=== PATIENT | female | born 1955 | race Caucasian/White ===

== ENCOUNTER → 2016-07-26 | Outpatient (CLI) | payer BC ==
[~2016-07-26] MED LIST: CARI350T28 PO; CYM30 PO; DEXILANT PO; ESOM20CA PO; FURO20TA PO; GLUCTAB7 PO; HYOS1TAB PO; LIVALO PO; METO1TAB69 PO; NRN400 PO; TRAM37.52 PO; TURM1CAP4 PO; ZNTT/150 PO
[2016-07-27 09:52] LABS: C-REACTIVE PROT HIGHSEN 3.2 MG/L
== END | disposition home or self-care (01) ==
LOC: C.LAB1850 08:21
PROVIDERS: ATTEND Physical Medicine & Rehabilitation
DX: M46.1 Sacroiliitis, not elsewhere classified (principal)

== ENCOUNTER → 2016-08-03 | Day surgery (SDC) | payer BC ==
[2016-07-20 13:57] VITALS: Ht 166.4 cm; Wt 90.9 kg
[~2016-08-03] VITALS: Ht 166.4 cm; Wt 90.9 kg
[~2016-08-03] MED LIST changes: +BUPIVACAINE 0.25% 2.5MG/ML PF 10 ML VIAL INFIL ONE; +IOPAMIDOL INJ 61% 15 ML VIAL ONE; +LIDOCAINE HCL 1% MPF 5 ML VIAL ONE
--- NOTE | 2016-08-03 15:06 | History & Physical Bridge - [place] ---
H&P Re-Evaluation Bridge Note: I have examined the patient, reviewed the History & Physical and in the interval since the performance of the History & Physical I have noted the following changes of clinical significance: No changes noted
[2016-08-03 15:28] VITALS: TEMP 36.5
--- NOTE | 2016-08-03 15:33 | Discharge Instructions ---
Discharge Instructions Visit Reason for Visit: Lumbar Radiculopathy Discharge Discharge Diagnosis / Problem: low back pain Discharge Goals Goal(s): Decrease discomfort, Improve function Activity Recommendations Activity Limitations: resume your previous activity Anesthesia . Post Anesthesia Instructions: If you have had General Anesthesia or IV Sedation: * Do not drive today. * Resume driving when surgeon permits. * Do not make important decisions or sign legal documents today. * Call surgeon for: 1. Temperature elevations greater than 101 degrees F. 2. Uncontrollable pain. 3. Excessive bleeding. 4. Persistent nausea and vomiting. 5. Medication intolerance (nausea, vomiting or rash). * For nausea and vomiting use only clear liquids such as: tea, soda, bouillon until nausea subsides, then gradually increase diet as tolerated. * If you have any concerns or questions, call your surgeon's office. If physician is unavailable and it is an emergency, call 911 or go to the nearest emergency room. . Diet Recommendations Recommended Home Diet: resume previous diet Procedures Procedures Performed: Bilateral Sacroiliac Joint Injection Pending Studies Studies pending at discharge: no Medical Emergencies . Who to Call and When: Medical Emergencies: If at any time you feel your situation is an emergency, please call 911 immediately. . Non-Emergent Contact Non-Emergency issues call your: Specialist . . "Provider Documentation" section prepared by Jhonny Lozano.
[2016-08-03 15:42] VITALS: BP 153/84; PULSE 68; O2SAT 100
--- NOTE | 2016-08-03 16:52 | OPERATIVE REPORT ---
DATE OF OPERATION: 08/03/2016 PREOPERATIVE DIAGNOSIS: Bilateral sacroiliitis. POSTOPERATIVE DIAGNOSIS: Same. PROCEDURE: Bilateral sacroiliac joint injections under fluoroscopic guidance. INDICATIONS: The patient is a 60-year-old white female presented to the office with complaints of low back pain. Her examination and history were consistent with sacroiliac pain. There was some concern about underlying inflammatory arthropathy and she has been worked up for that. She presents today for an injection to provide her with relief of sacroiliac pain. PHYSICAL EXAMINATION: Pleasant female seated comfortably. She has point tenderness to palpation of her bilateral sacroiliac joints, worse with extension, relieved with some flexion. Positive Navid maneuver bilaterally, positive sacral distraction and compression maneuvers. CONSENT: Verbal and written consent was obtained from the patient. Risks and benefits were reviewed. Risks include but are not limited to abscess and allergic reaction. The patient wishes to proceed. DESCRIPTION OF PROCEDURE: The patient will be taken back to the special procedures room of the [facility] where she was maintained in a prone position. Backside was cleansed with Betadine x3 and a dry sterile dressing was applied. Fluoroscope was used to identify the left sacroiliac joint and the overlying skin was anesthetized with 2.5 mL of lidocaine 1% with a 25 gauge 1.5-inch needle. A 25 gauge 3.5 inch spinal needle was then directed into the joint. She then underwent injection of less than 0.25 mL of Isovue 300 and which demonstrated to be intraarticular. She then underwent injection after negative aspiration, 1.5 mL of bupivacaine 0.25% and 40 mg of Depo-Medrol. The right SI joint then was fluoroscopically identified. The overlying skin was anesthetized with 2.5 mL of lidocaine 1% with a 25 gauge 1.5-inch needle. A 25 gauge 3.5 inch spinal needle was then directed into the joint. Isovue 300 contrast a 0.25 of a mL was injected in which demonstrated to be intraarticularly placed into the joint. She then underwent injection after negative aspiration of 40 mg of Depo-Medrol and 1.5 mL of bupivacaine 0.25%. Injection was well tolerated. DISPOSITION: 1. The patient is taken out into the discharge recovery area where she will be discharged home once discharge criteria have been met. 2. Follow up in the [facility] Sports Medicine office in 2-4 weeks. I attest to the content of the Intraoperative Record and any orders documented therein. Any exceptio ns are noted below.
== END | disposition home or self-care (01) ==
LOC: X.SURG 14:09
PROVIDERS: ATTEND Physical Medicine & Rehabilitation
DX: M46.1 Sacroiliitis, not elsewhere classified (principal); M54.5 Low back pain

== ENCOUNTER → 2016-10-05 | Outpatient (CLI) | payer BC ==
[~2016-10-05] MED LIST changes: -BUPIVACAINE 0.25% 2.5MG/ML PF 10 ML VIAL INFIL ONE; -IOPAMIDOL INJ 61% 15 ML VIAL ONE; -LIDOCAINE HCL 1% MPF 5 ML VIAL ONE; +METO100T44 PO; -METO1TAB69 PO; +TOPI50TA16 PO
--- NOTE | 2016-10-05 17:08 | MAMMOGRAPHY REPORT ---
BILATERAL DIGITAL SCREENING MAMMOGRAM TOMOSYNTHESIS WITH CAD: 10/05/2016 CLINICAL HISTORY: Routine screening. Patient has no complaints. TECHNIQUE: Breast tomosynthesis in addition to standard 2D mammography was performed. Current study was also evaluated with a Computer Aided Detection (CAD) system. COMPARISON: Comparison is made to exams dated: 09/17/2015 mammogram, 03/26/2014 mammogram, 03/27/2013 mammogram, 03/20/2013 mammogram, 03/19/2012 mammogram, and 03/16/2011 mammogram - [facility]. BREAST COMPOSITION: There are scattered areas of fibroglandular density in both breasts. FINDINGS: There is stable nodularity in the medial left breast. Stable benign-appearing calcificati ons in the breasts. No new suspicious mass, architectural distortion or cluster of microcalcificati ons is seen. IMPRESSION: ACR BI-RADS CATEGORY 1: NEGATIVE There is no mammographic evidence of malignancy. A 1 year screening mammogram is recommended. The p atient will receive written notification of the results. Approximately 10% of breast cancers are not detected with mammography. A negative mammographic repor t should not delay biopsy if a clinically suggestive mass is present. Alycia Wells M.D. ay/:10/05/2016 16:25:46 [employer] Manager: Deena Garner, [facility] letter sent: Normal 1/2 BI-RADS Code: ACR BI-RADS Category 1: Negative
== END | disposition home or self-care (01) ==
LOC: C.MAMM 08:06
PROVIDERS: ATTEND Obstetrics & Gynecology
DX: Z12.31 Encounter for screening mammogram for malignant neoplasm of breast (principal)

== ENCOUNTER → 2016-11-08 | Outpatient (CLI) | payer BC ==
--- NOTE | 2016-11-08 08:17 | DIAGNOSTIC IMAGING REPORT ---
RIGHT WRIST 4 VIEWS HISTORY: RIGHT WRIST PAIN Right COMPARISON: None. FINDINGS: There is no fracture or dislocation. Mild soft tissue swelling. No radiopaque foreign bodies. IMPRESSION: No fractures. Electronically signed by: Bobby Morales M.D. 11/08/2016 8:16 AM Dictated Date/Time: 11/08/2016 8:13 AM
== END ==
LOC: C.RAD 07:51
PROVIDERS: ATTEND Family Medicine
DX: M25.531 Pain in right wrist (principal)

== ENCOUNTER → 2016-12-01 | Day surgery (SDC) | payer BC ==
[2016-11-11 11:26] VITALS: Ht 166.4 cm; Wt 83.2 kg
[~2016-12-01] VITALS: Ht 166.4 cm; Wt 83.2 kg
[~2016-12-01] MED LIST changes: -ESOM20CA PO; +IOPAMIDOL INJ 61% 15 ML VIAL ONE; +LIDOCAINE HCL 1% MPF 5 ML VIAL ONE; +SODIUM CHLORIDE 0.9% INJ 10 ML VIAL ONE; -ZNTT/150 PO
[2016-12-01 15:06] VITALS: TEMP 36.6
--- NOTE | 2016-12-01 15:10 | Discharge Instructions ---
Discharge Instructions Date of Service Dec 01, 2016. Visit Reason for Visit: Right Lumbar Radiculopathy Discharge Discharge Diagnosis / Problem: right leg pain Discharge Goals Goal(s): Decrease discomfort, Improve function Activity Recommendations Activity Limitations: resume your previous activity Anesthesia . Post Anesthesia Instructions: If you have had General Anesthesia or IV Sedation: * Do not drive today. * Resume driving when surgeon permits. * Do not make important decisions or sign legal documents today. * Call surgeon for: 1. Temperature elevations greater than 101 degrees F. 2. Uncontrollable pain. 3. Excessive bleeding. 4. Persistent nausea and vomiting. 5. Medication intolerance (nausea, vomiting or rash). * For nausea and vomiting use only clear liquids such as: tea, soda, bouillon until nausea subsides, then gradually increase diet as tolerated. * If you have any concerns or questions, call your surgeon's office. If physician is unavailable and it is an emergency, call 911 or go to the nearest emergency room. . Diet Recommendations Recommended Home Diet: resume previous diet Procedures Procedures Performed: LUMBAR EPIDURAL STEROID INJECTION Pending Studies Studies pending at discharge: no Medical Emergencies . Who to Call and When: Medical Emergencies: If at any time you feel your situation is an emergency, please call 911 immediately. . Non-Emergent Contact Non-Emergency issues call your: Specialist . . "Provider Documentation" section prepared by Jhonny Lozano. .
[2016-12-01 15:19] VITALS: BP 131/75; PULSE 63; O2SAT 99
--- NOTE | 2016-12-01 19:30 | OPERATIVE REPORT ---
DATE OF OPERATION: 12/01/2016 PREOPERATIVE DIAGNOSIS: History of an L4-L5 discectomy with residual right L5 radiculopathy. POSTOPERATIVE DIAGNOSIS: Same. PROCEDURE: Right paramedian L5-S1 intralaminar epidural steroid injection under fluoroscopic guidance. INDICATIONS: The patient is a 61-year-old white female who receives epidural injections every few months with good relief of radicular pain. She reports that her radicular pain has recently been escalating, last injection was greater than 5 months ago. She presents today for an epidural injection to provide her with relief of right lower extremity radiculopathy. PHYSICAL EXAMINATION: GENERAL: Pleasant female seated comfortably in no apparent distress. MUSCULOSKELETAL: Lumbar paraspinal muscles were palpated, some soreness was noted on the right side. She has no focal weakness or sensory loss. CONSENT: Verbal and written consent was obtained from the patient. Risks and benefits were reviewed. Risks include but are not limited to epidural abscess, epidural hematoma, allergic reaction, dural puncture. The patient wishes to proceed. PROCEDURE: The patient was taken back to the special procedures room of the [facility]. She was maintained in a prone position. Backside was cleansed with Betadine x3 and a dry sterile dressing was applied. Fluoroscope was used to identify the L5-S1 intralaminar space and overlying skin was anesthetized with 4 mL of lidocaine 1% with a 25 gauge 1.5-inch needle. A 22-gauge 3-1/2 inch Tuohy needle was then directed down towards the intralaminar space. It was advanced under lateral fluoroscopic guidance and loss of resistance was noted at a depth of 7.5 cm. Isovue-300 contrast 1 mL was injected in which demonstrated epidural uptake pattern. This was confirmed under AP and lateral views. She then underwent injection after negative aspiration of 40 mg of Depo-Medrol and 4 mL of preservative free sodium chloride. Injection was well tolerated. DISPOSITION: 1. The patient is taken out into the discharge recovery area where she will be discharged home once discharge criteria have been met. 2. Follow up in the [facility] Sports Medicine office in 2-4 weeks. I attest to the content of the Intraoperative Record and any orders documented therein. Any exception s are noted below.
== END | disposition home or self-care (01) ==
LOC: X.SURG 14:06
PROVIDERS: ATTEND Physical Medicine & Rehabilitation
DX: M54.16 Radiculopathy, lumbar region (principal); H02.431 Paralytic ptosis of right eyelid; E03.9 Hypothyroidism, unspecified; E66.9 Obesity, unspecified; J45.909 Unspecified asthma, uncomplicated; E78.5 Hyperlipidemia, unspecified; F32.9 Major depressive disorder, single episode, unspecified; M81.0 Age-related osteoporosis without current pathological fracture; K21.9 Gastro-esophageal reflux disease without esophagitis; I10 Essential (primary) hypertension; E55.9 Vitamin D deficiency, unspecified; Z82.49 Family history of ischemic heart disease and other diseases of the circulatory system; Z81.1 Family history of alcohol abuse and dependence; Z80.3 Family history of malignant neoplasm of breast; Z83.49 Family history of other endocrine, nutritional and metabolic diseases; Z79.899 Other long term (current) drug therapy; Z87.891 Personal history of nicotine dependence

== ENCOUNTER → 2017-03-08 | Outpatient (CLI) | payer BC ==
[~2017-03-08] MED LIST changes: +GADAVIST IV PRN; -IOPAMIDOL INJ 61% 15 ML VIAL ONE; -LIDOCAINE HCL 1% MPF 5 ML VIAL ONE; -METO100T44 PO; +METO1TAB69 PO; -SODIUM CHLORIDE 0.9% INJ 10 ML VIAL ONE; -TOPI50TA16 PO
--- NOTE | 2017-03-08 07:37 | DIAGNOSTIC IMAGING REPORT ---
MRI OF THE BRAIN WITHOUT AND WITH IV CONTRAST CLINICAL HISTORY: R51 [id number] H/o Lyme [id number] COMPARISON STUDY: 04/03/2015 TECHNIQUE: MRI of the brain was performed from the vertex to the skull base utilizing various T1 and T2 weighted sequences. Following the IV administration of 7 mL of Gadavist contrast, additional enhanced images were obtained. FINDINGS: Sagittal T1, axial diffusion, proton density and T2 weighted axial, coronal FLAIR, and pre and post axial T1-weighted images were acquired. These were supplemented with post gadolinium coronal T1 weighted images. No intra or extra-axial mass lesions are visualized. Axial diffusion-weighted images reveal no evidence of acute or subacute infarction. There is no evidence of ventricular dilatation. Proton density T2-weighted and FLAIR images reveal a stable punctate focus of increased FLAIR signal, just deep to the left insular cortex. This is of doubtful clinical significance, and not unexpected for age. There are no abnormal flow voids. There is no evidence of pathologic enhancement. IMPRESSION: No change from the preceding study. Normal MRI of the brain for age Electronically signed by: Praful Arita M.D. 03/08/2017 7:36 AM Dictated Date/Time: 03/08/2017 7:32 AM
== END | disposition home or self-care (01) ==
LOC: C.MRIBC 06:52
PROVIDERS: ATTEND Psychiatry & Neurology Neurology
DX: R51 Headache (principal); Z86.19 Personal history of other infectious and parasitic diseases

== ENCOUNTER → 2017-04-03 | Outpatient (CLI) | payer BC ==
[~2017-04-03] MED LIST changes: -GADAVIST IV PRN; +METO100T44 PO; -METO1TAB69 PO
--- NOTE | 2017-04-03 12:04 | DIAGNOSTIC IMAGING REPORT ---
(CHEST) THORAX WITHOUT CT DOSE: 413.91 mGycm CLINICAL HISTORY: 61 years-old Female with SOLITARY PULM NODULE. Follow-up study to assess pulmonary nodule. TECHNIQUE: Multiaxial CT images of the chest were performed without contrast. A dose lowering technique was utilized adhering to the principles of ALARA. COMPARISON: CT abdomen and pelvis 03/21/2016. FINDINGS: No dominant thyroid nodule identified. No pathologic adenopathy of the chest is seen. Heart is normal in size. Coronary arterial calcifications are noted. No thoracic aortic dissection identified. There is no pneumothorax or pleural effusion. Mild left apical pleural parenchymal scarring. 4 mm noncalcified pulmonary nodule is present within the apical posterior segment left upper lobe on image 59 of series 4. 3 mm solid pulmonary the inferior segment lingula on image 150 series 4 is unchanged from comparison as is the 3 mm solid nodule within the superior segment lingula seen on image 136 of series 4. Mild dependent bibasilar atelectasis. There are no additional suspicious pulmonary nodules or mass is identified. No lobar airspace consolidation. 4 mm perifissural lymph node is seen abutting the right major fissure on image 116 of series 4. Central airways are patent. Prior cholecystectomy. No acute amount of the imaged upper abdomen identified. Soft tissues are unremarkable. Bones appear intact. IMPRESSION: 1. No acute intrathoracic abnormality identified. 2. Scattered noncalcified solid pulmonary nodules throughout the left lung as above, largest of which is within the apical posterior segment left upper lobe measuring 4 mm. Follow-up guidelines are provided below. 3. Prior cholecystectomy. Please refer to below summary of Fleischner criteria recommendations for follow-up of incidental CT nodules (Shahab Samayoa, Guidelines for management of small pulmonary nodules detected on CT scans: A statement from the Fleischner Society, Radiology 237: [phone].) SOLID NODULES Multiple nodules size: <6 mm * Low risk patients: no routine follow-up * high risk patients: optional CT at 12 months Note: newly detected indeterminate nodule in persons 35 years of age or older. * Low risk patients: minimal or absent history of smoking and/or other known risk factors * high risk patients: history of smoking or of other known risk factors (e.g. first degree relative with lung cancer, or exposure to asbestos, radon, uranium) * if a nodule up to 8 mm is partly solid or is ground glass further follow-up is required after 24 months to exclude possible slow growing adenocarcinoma (JEY) The above report was generated using voice recognition software. It may contain grammatical, syntax or spelling errors. Electronically signed by: Phillip Feliciano M.D. 04/03/2017 12:03 PM Dictated Date/Time: 04/03/2017 11:56 AM
== END | disposition home or self-care (01) ==
LOC: C.CTS 11:21
PROVIDERS: ATTEND Physician Assistant
DX: R91.1 Solitary pulmonary nodule (principal)

== ENCOUNTER → 2017-05-11 | Outpatient (CLI) | payer OTHER, BC ==
[~2017-05-11] MED LIST changes: +GADAVIST IV PRN; +TOPI50TA16 PO
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
== END | disposition home or self-care (01) ==
LOC: C.MRIBC 09:24
PROVIDERS: ATTEND Physical Medicine & Rehabilitation
DX: M96.1 Postlaminectomy syndrome, not elsewhere classified (principal); M54.16 Radiculopathy, lumbar region

== ENCOUNTER → 2017-05-24 | Day surgery (SDC) | payer OTHER, BC ==
[2017-05-16 08:53] VITALS: Ht 166.4 cm; Wt 77.3 kg
--- NOTE | 2017-05-18 15:46 | DIAGNOSTIC IMAGING REPORT ---
R WRIST MIN 3 VIEWS ROUTINE HISTORY: 61 years-old Female LUMBAR RADICULOPATHY; WRIST PAIN RIGHT COMPARISON: Wrist radiographs 11/08/2016 TECHNIQUE: 4 views of the right wrist FINDINGS: Mild carpal and first carpometacarpal osteoarthritis. There is no acute fracture or dislocation. No opaque foreign body. IMPRESSION: No acute fracture or dislocation. The above report was generated using voice recognition software. It may contain grammatical, syntax or spelling errors. Electronically signed by: Phillip Feliciano M.D. 05/18/2017 3:45 PM Dictated Date/Time: 05/18/2017 3:44 PM
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
[~2017-05-24] VITALS: Ht 166.4 cm; Wt 77.3 kg
[~2017-05-24] MED LIST changes: -GADAVIST IV PRN; +IOPAMIDOL INJ 61% 15 ML VIAL ONE; +LIDOCAINE HCL 1% MPF 5 ML VIAL ONE; +SODIUM CHLORIDE 0.9% INJ 10 ML VIAL ONE
[2017-05-24 13:25] VITALS: TEMP 36.9
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
[2017-05-24 13:39] VITALS: BP 145/87; PULSE 56; O2SAT 99
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
== END | disposition home or self-care (01) ==
LOC: X.SURG 12:22
PROVIDERS: ATTEND Physical Medicine & Rehabilitation
DX: M51.16 Intervertebral disc disorders with radiculopathy, lumbar region (principal); M79.605 Pain in left leg; M79.604 Pain in right leg; Z79.899 Other long term (current) drug therapy; Z98.890 Other specified postprocedural states

== ENCOUNTER 2017-08-20 16:19 | Emergency (ER) | payer BC, OTHER ==
[~2017-08-20] VITALS: Ht 165.1 cm; Wt 79.4 kg
[~2017-08-20 16:19] MED LIST changes: -IOPAMIDOL INJ 61% 15 ML VIAL ONE; -LIDOCAINE HCL 1% MPF 5 ML VIAL ONE; -SODIUM CHLORIDE 0.9% INJ 10 ML VIAL ONE
[2017-08-20 16:24] VITALS: TEMP 36.4; Ht 165.1 cm; Wt 79.4 kg
[2017-08-20] MEDS ORDERED: ACETAMINOPHEN 500 MG TAB PO STA (16:59)
[2017-08-20] MEDS ORDERED: SODIUM CHLORIDE 0.9% 1000ML 500 ML IV STA (16:59)
[2017-08-20] MEDS ORDERED: DEXAMETHASONE SOD INJ 4 MG/ML VIAL IV STA (16:59)
[2017-08-20] MEDS ORDERED: DiphenhydrAMINE HCL 50 MG/ML VIAL IV STA (16:59)
[2017-08-20] MEDS ORDERED: PROCHLORPERAZINE 5 MG/ML 2 ML VIAL IV STA (16:59)
--- NOTE | 2017-08-20 17:07 | EMERGENCY ROOM VISIT NOTE ---
History Report prepared by Magdalena: Diann Lal Under the Supervision of: Dr. Randolph Sandhu M.D. First contact with patient: 16:38 Chief Complaint: HEADACHE Stated Complaint: HEADACHE, ER LAST NIGHT W/STROKE SYMPTOMS History of Present Illness The patient is a 61 year old female who presents to the Emergency Room with complaints of a waxing and waning headache beginning 2 weeks ago. She rates the pain at a 5/10. The patient reports that last night she was having visual changes and difficulty speaking, so she called an ambulance and went to the [facility]. She states that she had blood work and a CT scan done. She states that she was told everything was normal except for her TSH which was off. The patient reports that she does not have a history of thyroid issues, but that there is a family history of thyroid problems. The patient states that she was told at [facility] that she was having a panic attack. The patient does not agree with this, which is why she is here. She reports that her visual changes and speaking problems have resolved, but that she is having nausea and fatigue today. The patient denies having fevers, chills , chest pain, shortness of breath, vomiting, and numbness. The patient also reports that her hair has been falling out, that she has been constipated, and has had dry skin. She states that she has a history of migraines since she was a child. The patient states that she has fibromyalgia. Source of History: patient Onset: 2 weeks ago Position: head Symptom Intensity: rated at a 5/10 Quality: other (headache ) Timing: waxes/wanes Associated Symptoms: + nausea, + fatigue, No fevers, No chills, No chest pain, No SOB, No vomiting, No numbness Note: additional symptoms: visual changes, difficulty with speech, hair falling out, constipation, dry skin Review of Systems See HPI for pertinent positives & negatives. A total of 10 systems reviewed and were otherwise negative. Past Medical & Surgical Medical Problems: (1) Angina (2) Aortic regurgitation (3) Pugh esophagus (4) Benign hypertension (5) Bilateral knee pain (6) Chondromalacia patellae (7) Deviated nasal septum (8) Esophageal reflux (9) Fibromyalgia (10) GERD (gastroesophageal reflux disease) (11) Hyperlipidemia (12) Lumbago (13) Migraine Surgical Problems: (1) History of cholecystectomy (2) Hx of knee surgery (3) Previous back surgery (4) S/P appendectomy Family History Cancer Heart disease Hypertension Thyroid problem Social History Smoking Status: Never Smoker Alcohol Use: occasionally Marital Status: Housing Status: lives with significant other Occupation Status: employed Current/Historical Medications Scheduled Carisoprodol (Soma), 350 MG PO HS Divalproex Sodium (Depakote), 500 MG PO QAM Esomeprazole Magnesium (Nexium), 40 MG PO QAM Gabapentin (Gabapentin), 600 MG PO HS Methylprednisolone (Medrol Dosepak), 1 PKT PO UD Metoprolol Succ (Toprol Xl) (Toprol-Xl ), 100 MG PO HS Pravastatin Sod (Pravastatin Sodium), 40 MG PO HS Topiramate (Topamax), 50 MG PO HS Scheduled PRN Hyoscyamine Sulfate (Levsin), 0.125 MG PO TID PRN for SPASMS Sennosides (Sennosides), 8.6 MG PO DIRECTED PRN for Constipation Tramadol-Acetaminophen (Ultracet), 1 TAB PO BID PRN for Pain Allergies Coded Allergies: Codeine (Verified Allergy, Mild, SEVERE STOMACH PAIN, 08/20/17) Aspirin (Verified Allergy, Unknown, SEVERE STOMACH PAIN, 08/20/17) Cephalexin (Verified Allergy, Unknown, GI SYMPTOMS, 08/20/17) NSAIDs (Verified Allergy, Unknown, _, 08/20/17) Physical Exam Vital Signs Date Time Temp Pulse Resp B/P (MAP) Pulse Ox O2 Delivery O2 Flow Rate FiO2 08/20/17 19:26 86 16 142/72 98 Room Air 08/20/17 18:20 79 18 163/76 96 Room Air 08/20/17 17:53 84 08/20/17 17:37 96 Room Air 08/20/17 16:24 36.4 90 20 146/86 99 Room Air Physical Exam GENERAL: Patient is in no acute distress. HEENT: No acute trauma, normocephalic atraumatic, mucous membranes moist, no nasal congestion, no scleral icterus. NECK: No stridor, no adenopathy, no meningismus, trachea is midline. LUNGS: Clear to auscultation bilaterally, no wheeze, no rhonchi, breath sounds equal. HEART: Without murmurs gallops or rubs, regular rate and rhythm. ABDOMEN: Soft, nontender, bowel sounds positive, no hernias, no peritonitis. EXTREMITIES: No cyanosis or edema, full range of motion of all the joints without pain or difficulty, no signs for acute trauma. NEUROLOGIC: Oriented x 3, no acute motor or sensory deficits, no focal weakness. SKIN: No rash, no jaundice, no diaphoresis. Medical Decision & Procedures ER Provider Diagnostic Interpretation: Radiology results as stated below per my review and radiologist interpretation: MRI OF THE BRAIN WITHOUT AND WITH IV CONTRAST CLINICAL HISTORY: Headache with speech difficulty. Possible stroke or mass. COMPARISON STUDY: February 2017 TECHNIQUE: MRI of the brain was performed from the vertex to the skull base utilizing various T1 and T2 weighted sequences. Following the IV administration of 8 mL of Gadavist contrast, additional enhanced images were obtained. FINDINGS: Sagittal T1, axial diffusion, proton density and T2 weighted axial, coronal FLAIR, and pre and post axial T1-weighted images were acquired. These were supplemented with post gadolinium coronal T1 weighted images. No intra or extra-axial mass lesions are visualized. Axial diffusion-weighted images reveal no evidence of acute or subacute infarction. There is no evidence of ventricular dilatation. Proton density T2-weighted and FLAIR images reveal a stable subtle focus of increased FLAIR signal just deep to the left insular cortex. There are no abnormal flow voids. There is no evidence of pathologic enhancement. There are minimal inflammatory changes within the mastoids IMPRESSION: 1. No acute intracranial findings 2. No evidence of acute or subacute infarction 3. No evidence of intracranial mass 4. No evidence of hydrocephalus Electronically signed by: Praful Arita M.D. 08/20/2017 7:13 PM Dictated Date/Time: 08/20/2017 7:11 PM Laboratory Results 08/20/17 17:20 Red Blood Count 4.66, Mean Corpuscular Volume 85.8, Mean Corpuscular Hemoglobin 31.1, Mean Corpuscular Hemoglobin Concent 36.3, Mean Platelet Volume 10.0, Neutrophils (%) (Auto) 65.1, Lymphocytes (%) (Auto) 26.3, Monocytes (%) (Auto) 7.5, Eosinophils (%) (Auto) 0.5, Basophils (%) (Auto) 0.3, Neutrophils # (Auto) 3.90, Lymphocytes # (Auto) 1.58, Monocytes # (Auto) 0.45, Eosinophils # (Auto) 0.03, Basophils # (Auto) 0.02 08/20/17 17:20 Test 08/20/17 17:20 08/20/17 18:20 White Blood Count 6.00 K/uL (4.8-10.8) Red Blood Count 4.66 M/uL (4.2-5.4) Hemoglobin 14.5 g/dL (12.0-16.0) Hematocrit 40.0 % (37-47) Mean Corpuscular Volume 85.8 fL (80-100) Mean Corpuscular Hemoglobin 31.1 pg (25-34) Mean Corpuscular Hemoglobin Concent 36.3 g/dl (32-36) Platelet Count 239 K/uL (130-400) Mean Platelet Volume 10.0 fL (7.4-10.4) Neutrophils (%) (Auto) 65.1 % Lymphocytes (%) (Auto) 26.3 % Monocytes (%) (Auto) 7.5 % Eosinophils (%) (Auto) 0.5 % Basophils (%) (Auto) 0.3 % Neutrophils # (Auto) 3.90 K/uL (1.4-6.5) Lymphocytes # (Auto) 1.58 K/uL (1.2-3.4) Monocytes # (Auto) 0.45 K/uL (0.11-0.59) Eosinophils # (Auto) 0.03 K/uL (0-0.5) Basophils # (Auto) 0.02 K/uL (0-0.2) RDW Standard Deviation 43.9 fL (36.4-46.3) RDW Coefficient of Variation 14.2 % (11.5-14.5) Immature Granulocyte % (Auto) 0.3 % Immature Granulocyte # (Auto) 0.02 K/uL (0.00-0.02) Anion Gap 10.0 mmol/L (3-11) Est Creatinine Clear Calc Drug Dose 78.9 ml/min Estimated GFR () 94.3 Estimated GFR (Non- 81.4 BUN/Creatinine Ratio 13.5 (10-20) Calcium Level 9.2 mg/dl (8.5-10.1) Thyroid Stimulating Hormone (TSH) 1.580 uIu/ml (0.300-4.500) Free Thyroxine 0.96 ng/dl (0.80-1.60) Urine Color YELLOW Urine Appearance CLEAR (CLEAR) Urine pH 7.0 (4.5-7.5) Urine Specific [place] 1.006 (1.000-1.030) Urine Protein NEG (NEG) Urine Glucose (UA) NEG (NEG) Urine Ketones TRACE (NEG) Urine Occult Blood NEG (NEG) Urine Nitrite NEG (NEG) Urine Bilirubin NEG (NEG) Urine Urobilinogen NEG (NEG) Urine Leukocyte Esterase NEG (NEG) Laboratory results reviewed by me. Medications Administered Medications (Trade) Dose Ordered Sig/Mariaelena Route Start Time Stop Time Status Last Admin Dose Admin Sodium Chloride 500 ml @ 999 mls/hr Q31M STAT IV 08/20/17 16:59 08/20/17 17:29 DC 08/20/17 17:28 999 MLS/HR Prochlorperazine Edisylate (Compazine Inj) 10 mg NOW STAT IV 08/20/17 16:59 08/20/17 17:04 DC 08/20/17 17:29 10 MG Diphenhydramine HCl (Benadryl Inj) 50 mg NOW STAT IV 08/20/17 16:59 08/20/17 17:04 DC 08/20/17 17:29 50 MG Dexamethasone Sodium Phosphate (Decadron Inj) 10 mg NOW STAT IV 08/20/17 16:59 08/20/17 17:04 DC 08/20/17 17:28 10 MG Acetaminophen (Tylenol Tab) 1,000 mg NOW STAT PO 08/20/17 16:59 08/20/17 17:04 DC 08/20/17 17:29 1,000 MG ED Course 1659: Ordered Tylenol Tab 1,000 mg PO, Decadron Inj 10 mg IV, Benadryl Inj 50 mg IV, Compazine Inj 10 mg IV, Sodium Chloride 500 ml @ 999 mls/hr IV. 1750: Discussed the patient's case with Dr. Barclay. She said that if the patient wants to do an MRI, then we can do one and if that is normal then she can go home. 1929: Reevaluated the patient. Discussed results and discharge instructions: She verbalized understanding and agreement. The patient is ready for discharge. Medical Decision The patient is a 61 year old female who presents to the ED with complaints of a headache. Differential diagnoses considered include migraine, headache, tension headache, dehydration, UTI, thyroid disorder, electrolyte imbalance, stroke, intracranial bleeding, and meningitis. There is no leukocytosis or concerning anemia. No significant electrolyte abnormality or kidney failure. Urinalysis does not show infection. The patient appears to be in a euthyroid state. Brain MRI does not show a mass, stroke or evidence for bleeding. On exam, there were no focal neurologic deficits. The patient was not febrile or toxic. The patient received IV saline, IV Decadron, IV Compazine and IV Benadryl. She was given oral Tylenol. The patient feels improved. She was reassured by her testing. I discussed her case with neurology machine feeder floorperson. The patient will follow with urology as an outpatient. At this point, her headache seems migrainous. She has a history of the same. The speech issues yesterday were likely related to the migraine itself. Medication Reconcilliation Current Medication List: was personally reviewed by me Blood Pressure Screening Patient's blood pressure: Elevated blood pressure Blood pressure disposition: Referred to PCP Consults Additional Consults: Time Called: 1747 Consulted Physician: Dr. Barclay- [facility] Returned Call: 1750 Additional Comments: Discussed the patient's case with Dr. Barclay. She said that if the patient wants to do an MRI, then we can do one and if that is normal then she can go home. Impression Primary Impression: Headache Additional Impression: Stroke-like symptom Scribe Attestation The scribe's documentation has been prepared under my direction and personally reviewed by me in its entirety. I confirm that the note above accurately reflects all work, treatment, procedures, and medical decision making performed by me. Departure Information Dispostion Home / Self-Care Prescriptions Methylprednisolone (MEDROL DOSEPAK) 4 Mg Vel 1 PKT PO UD for 6 Days, #1 PKT Prov: Randolph Sandhu M.D. 08/20/17 Referrals Na Faria M.D. (PCP) Forms HOME CARE DOCUMENTATION FORM, IMPORTANT VISIT INFORMATION Patient Instructions My [facility] Additional Instructions be sure to take all your meds as prescribed rest stay well hydrated be in touch with neurology--call tomorrow for an appt medrol dose vel as directed--start tomorrow talk with your doctor about your thyroid your lab testing and urine testing and brain MRI were all ok today Problem Qualifiers
[2017-08-20] MEDS ORDERED: DIVA500T59 PO (17:09)
[2017-08-20] MEDS ORDERED: NXM/40 PO (17:09)
[2017-08-20] MEDS ORDERED: PRVC/40 PO (17:09)
[2017-08-20] MEDS ORDERED: NRN600 PO (17:09)
[2017-08-20] MEDS ORDERED: SENN8.6T94 PO (17:09)
[2017-08-20 17:37] VITALS: O2SAT 96
[2017-08-20 17:39] LABS: BASO % 0.3 %; BASO ABS # 0.02 K/uL (0-0.2); EOS % 0.5 %; EOS ABS # 0.03 K/uL (0-0.5); HEMOGLOBIN 14.5 g/dL (12.0-16.0); IG# 0.02 K/uL (0.00-0.02); LYMPH % 26.3 %; LYMPH ABS # 1.58 K/uL (1.2-3.4); MEAN CELL VOLUME 85.8 fL (80-100); MEAN CORPUSCULAR HEMOGLOBIN 31.1 pg (25-34); MEAN CORPUSCULAR HGB CONC 36.3 g/dl (32-36); MONO % 7.5 %; MONO ABS # 0.45 K/uL (0.11-0.59); NEUT % 65.1 %; PLATELET COUNT 239 K/uL (130-400); RED CELL DISTRIBUTION WIDTH CV 14.2 % (11.5-14.5); RED CELL DISTRIBUTION WIDTH SD 43.9 fL (36.4-46.3)
[2017-08-20 18:00] LABS: CALCIUM 9.2 mg/dl (8.5-10.1); CREATININE 0.79 mg/dl (0.60-1.20); POTASSIUM 3.8 mmol/L (3.5-5.1)
--- NOTE | 2017-08-20 19:15 | DIAGNOSTIC IMAGING REPORT ---
MRI OF THE BRAIN WITHOUT AND WITH IV CONTRAST CLINICAL HISTORY: Headache with speech difficulty. Possible stroke or mass. COMPARISON STUDY: February 2017 TECHNIQUE: MRI of the brain was performed from the vertex to the skull base utilizing various T1 and T2 weighted sequences. Following the IV administration of 8 mL of Gadavist contrast, additional enhanced images were obtained. FINDINGS: Sagittal T1, axial diffusion, proton density and T2 weighted axial, coronal FLAIR, and pre and post axial T1-weighted images were acquired. These were supplemented with post gadolinium coronal T1 weighted images. No intra or extra-axial mass lesions are visualized. Axial diffusion-weighted images reveal no evidence of acute or subacute infarction. There is no evidence of ventricular dilatation. Proton density T2-weighted and FLAIR images reveal a stable subtle focus of increased FLAIR signal just deep to the left insular cortex. There are no abnormal flow voids. There is no evidence of pathologic enhancement. There are minimal inflammatory changes within the mastoids IMPRESSION: 1. No acute intracranial findings 2. No evidence of acute or subacute infarction 3. No evidence of intracranial mass 4. No evidence of hydrocephalus Electronically signed by: Praful Arita M.D. 08/20/2017 7:13 PM Dictated Date/Time: 08/20/2017 7:11 PM
[2017-08-20 19:26] VITALS: BP 142/72; PULSE 86; O2SAT 98
[2017-08-20] MEDS ORDERED: METH4PAK PO (19:28)
== END 2017-08-20 19:33 | disposition home or self-care (01) ==
LOC: C.EDB 16:20 → C.EDC 19:33
DX: G43.909 Migraine, unspecified, not intractable, without status migrainosus (principal); M79.7 Fibromyalgia; I10 Essential (primary) hypertension; K21.9 Gastro-esophageal reflux disease without esophagitis; E78.5 Hyperlipidemia, unspecified; Z88.6 Allergy status to analgesic agent; Z88.5 Allergy status to narcotic agent; Z88.1 Allergy status to other antibiotic agents; Z80.9 Family history of malignant neoplasm, unspecified; Z82.49 Family history of ischemic heart disease and other diseases of the circulatory system; Z83.49 Family history of other endocrine, nutritional and metabolic diseases

== ENCOUNTER → 2017-10-06 | Outpatient (CLI) | payer OTHER ==
[~2017-10-06] MED LIST changes: -CYM30 PO; -DEXILANT PO; -FURO20TA PO; -GLUCTAB7 PO; -LIVALO PO; -NRN400 PO; +NRN600 PO; +NXM/40 PO; +PRVC/40 PO; +SENN8.6T94 PO; +TOPI25TA10 PO; -TOPI50TA16 PO; -TURM1CAP4 PO
--- NOTE | 2017-10-09 07:46 | MAMMOGRAPHY REPORT ---
BILATERAL DIGITAL SCREENING MAMMOGRAM TOMOSYNTHESIS WITH CAD: 10/06/2017 CLINICAL HISTORY: Routine screening. Patient has no complaints. TECHNIQUE: Breast tomosynthesis in addition to standard 2D mammography was performed. Current study was also evaluated with a Computer Aided Detection (CAD) system. COMPARISON: Comparison is made to exams dated: 10/05/2016 mammogram, 09/17/2015 mammogram, 03/26/2014 m ammogram, 03/20/2013 mammogram, 03/19/2012 mammogram, and 03/16/2011 mammogram - [facility] enter. BREAST COMPOSITION: There are scattered areas of fibroglandular density in both breasts. FINDINGS: No suspicious masses, calcifications, or areas of architectural distortion are noted in ei ther breast. There has been no significant interval change compared to prior exams. Scattered bilate ral benign-appearing calcifications are not significantly changed. Small circumscribed benign-appear ing mass in the left medial breast is stable compared to prior exams. Left lateral breast asymmetry on the cc view is also stable compared to prior exams. IMPRESSION: ACR BI-RADS CATEGORY 2: BENIGN There is no mammographic evidence of malignancy. A 1 year screening mammogram is recommended. The pa tient will receive written notification of the results. Approximately 10% of breast cancers are not detected with mammography. A negative mammographic report should not delay biopsy if a clinically suggestive mass is present. Paula Benjamin M.D. /:10/06/2017 16:51:13 Band Teacher: Dorothy STERN(Genna)(M), [facility] letter sent: Normal 1/2 BI-RADS Code: ACR BI-RADS Category 2: Benign
== END | disposition home or self-care (01) ==
LOC: C.MAMM 09:57
PROVIDERS: ATTEND Obstetrics & Gynecology
DX: Z12.31 Encounter for screening mammogram for malignant neoplasm of breast (principal)

== ENCOUNTER → 2017-10-12 | Outpatient (CLI) | payer OTHER | END | disposition home or self-care (01) | LOC: C.LABSPEC 13:30 | PROVIDERS: ATTEND Physician Assistant | DX: N94.9 Unspecified condition associated with female genital organs and menstrual cycle (principal) ==

== ENCOUNTER → 2017-10-16 | Day surgery (SDC) | payer OTHER ==
[2017-09-29 14:18] VITALS: Ht 166.4 cm; Wt 77.3 kg
[~2017-10-16] VITALS: Ht 166.4 cm; Wt 77.3 kg
[~2017-10-16] MED LIST changes: +AZIT500T26 PO; +BUPIVACAINE 0.25% 2.5MG/ML PF 10 ML VIAL ONE; +IOPAMIDOL INJ 61% 15 ML VIAL ONE; +LIDOCAINE HCL 1% MPF 5 ML VIAL ONE; +SODIUM CHLORIDE 0.9% INJ 10 ML VIAL ONE; +THYROID MEDICATION PO
--- NOTE | 2017-10-16 13:07 | [facility] Post Operative Brief Note ---
Immediate Operative Summary Operative Date October 16, 2017. Pre-Operative Diagnosis chronic low back pain with right L4 radiculopathy Post-Operative Diagnosis same Procedure(s) Performed Right L4-5 Transforaminal Epidural Steroid Injection Surgeon Dr Jhonny Lozano Data Operations Leader Surgeon(s) None Estimated Blood Loss 0 Findings Consistent with Post-Op Diagnosis Specimens NA Anesthesia Type Local Complication(s) none Disposition Disposition:
[2017-10-16 13:10] VITALS: TEMP 36.5
[2017-10-16 13:32] VITALS: BP 143/77; PULSE 45; O2SAT 100
--- NOTE | 2017-10-16 13:38 | Discharge Instructions ---
Discharge Instructions Date of Service October 16, 2017. Visit Reason for Visit: Lumbar Radiculopathy Discharge Discharge Diagnosis / Problem: Right leg pain Discharge Goals Goal(s): Decrease discomfort, Improve function Activity Recommendations Activity Limitations: resume your previous activity Anesthesia . Post Anesthesia Instructions: If you have had General Anesthesia or IV Sedation: * Do not drive today. * Resume driving when surgeon permits. * Do not make important decisions or sign legal documents today. * Call surgeon for: 1. Temperature elevations greater than 101 degrees F. 2. Uncontrollable pain. 3. Excessive bleeding. 4. Persistent nausea and vomiting. 5. Medication intolerance (nausea, vomiting or rash). * For nausea and vomiting use only clear liquids such as: tea, soda, bouillon until nausea subsides, then gradually increase diet as tolerated. * If you have any concerns or questions, call your surgeon's office. If physician is unavailable and it is an emergency, call 911 or go to the nearest emergency room. . Diet Recommendations Recommended Home Diet: resume previous diet Procedures Procedures Performed: Right L4-5 Transforaminal Epidural Steroid Injection Pending Studies Studies pending at discharge: no Medical Emergencies . Who to Call and When: Medical Emergencies: If at any time you feel your situation is an emergency, please call 911 immediately. . Non-Emergent Contact Non-Emergency issues call your: Specialist . . "Provider Documentation" section prepared by Jhonny Lozano. .
--- NOTE | 2017-10-16 13:54 | OPERATIVE REPORT ---
DATE OF OPERATION: 10/16/2017 PREOPERATIVE DIAGNOSIS: Post-laminectomy syndrome with persistent right L4 radiculopathy. POSTOPERATIVE DIAGNOSIS: Same. PROCEDURE: Right L4-L5 transforaminal epidural steroid injection under fluoroscopic guidance. INDICATIONS: The patient is a 61-year-old white female who was evaluated in the office and was requesting an epidural steroid injection, was recommended by her surgeon that she saw for surgical opinion. She presents today for an injection. She has responded favorably to caudal based epidural injections in the past. PHYSICAL EXAMINATION: Pleasant female, seated comfortably. She is without any focal weakness of her lower extremity, subjective decreased sensation in the right L5 dermatomal distribution with positive straight leg raise of her right lower extremity. CONSENT: Verbal and written consent was obtained from the patient. Risks and benefits were reviewed, risks include but are not limited to abscess and allergic reaction. The patient wishes to proceed. DESCRIPTION OF PROCEDURE: The patient was taken back to the special procedures room of [facility]. She was maintained in a prone position. Backside was cleansed with Betadine x3 and a dry sterile dressing was applied. Fluoroscope was used to identify the L4-L5 interlaminar space and then moved into an oblique view to demonstrate just inferior to the L4 pedicle was the target. Overlying skin was anesthetized with 5 mL of lidocaine 1% with a 25-gauge 1.5-inch needle. A 22-gauge 5-inch spinal needle was then directed with the goal of being just below the pedicle. It was then advanced in an AP view. She had reproduction of back pain as it was noted near the foramen, but not leg pain. Isovue 300 contrast was injected which showed outline of the L4 nerve root. A 0.5 mL was utilized. She then underwent injection after negative aspiration of 40 mg of Depo-Medrol. Injection reproduced a familiar transient sensation down the leg. DISPOSITION: 1. The patient is taken out into the discharge recovery area where she will be discharged home once discharge criteria have been met. 2. Follow up in the [facility] office in 4 weeks' time. I attest to the content of the Intraoperative Record and any orders documented therein. Any exception s are noted below.
== END | disposition home or self-care (01) ==
LOC: X.SURG 12:13
PROVIDERS: ATTEND Physical Medicine & Rehabilitation
DX: M54.16 Radiculopathy, lumbar region (principal); M96.1 Postlaminectomy syndrome, not elsewhere classified; M54.5 Low back pain; G89.28 Other chronic postprocedural pain

== ENCOUNTER → 2017-10-23 | Day surgery (SDC) | payer OTHER ==
[2017-10-06 11:15] VITALS: Ht 166.4 cm; Wt 77.3 kg
[~2017-10-23] VITALS: Ht 166.4 cm; Wt 77.3 kg
[~2017-10-23] MED LIST changes: +BOTULINUM TOXIN TYPE A 100 UNIT VIAL ONE; -BUPIVACAINE 0.25% 2.5MG/ML PF 10 ML VIAL ONE; -IOPAMIDOL INJ 61% 15 ML VIAL ONE; -LIDOCAINE HCL 1% MPF 5 ML VIAL ONE
--- NOTE | 2017-10-23 15:09 | [facility] Post Operative Brief Note ---
Immediate Operative Summary Operative Date October 23, 2017. Pre-Operative Diagnosis Chronic low back pain with right L4 radiculopathy Post-Operative Diagnosis Same Procedure(s) Performed Botox Injections Surgeon Dr. Sharif Lozano Authorization Specialist Surgeon(s) None Estimated Blood Loss 0 Findings Consistent with Post-Op Diagnosis Specimens NA Drains None Anesthesia Type None Complication(s) none Disposition Disposition:
[2017-10-23 15:10] VITALS: BP 144/73; PULSE 51; TEMP 36.5; O2SAT 97
--- NOTE | 2017-10-23 15:10 | Discharge Instructions ---
Discharge Instructions Date of Service October 23, 2017. Visit Reason for Visit: Chronic Migraine, Chronic Myofascial Pain Discharge Discharge Diagnosis / Problem: migraines Discharge Goals Goal(s): Decrease discomfort, Improve function Activity Recommendations Activity Limitations: resume your previous activity Anesthesia . Post Anesthesia Instructions: If you have had General Anesthesia or IV Sedation: * Do not drive today. * Resume driving when surgeon permits. * Do not make important decisions or sign legal documents today. * Call surgeon for: 1. Temperature elevations greater than 101 degrees F. 2. Uncontrollable pain. 3. Excessive bleeding. 4. Persistent nausea and vomiting. 5. Medication intolerance (nausea, vomiting or rash). * For nausea and vomiting use only clear liquids such as: tea, soda, bouillon until nausea subsides, then gradually increase diet as tolerated. * If you have any concerns or questions, call your surgeon's office. If physician is unavailable and it is an emergency, call 911 or go to the nearest emergency room. . Diet Recommendations Recommended Home Diet: resume previous diet Procedures Procedures Performed: Botox Injections Pending Studies Studies pending at discharge: no Medical Emergencies . Who to Call and When: Medical Emergencies: If at any time you feel your situation is an emergency, please call 911 immediately. . Non-Emergent Contact Non-Emergency issues call your: Specialist . . "Provider Documentation" section prepared by Jhonny Lozano. .
--- NOTE | 2017-10-23 19:53 | OPERATIVE REPORT ---
DATE OF OPERATION: 10/23/2017 PREOPERATIVE DIAGNOSIS: Migraines, chronic headaches, chronic migraines. POSTOPERATIVE DIAGNOSIS: Migraines, chronic headaches, chronic migraines. PROCEDURE: Bilateral Botox injections into the cervical paraspinal and orbital muscles. INDICATIONS: The patient is a 61-year-old female who has received Botox injections for a number of years with good results in controlling her migraines. She presents today for injections. PHYSICAL EXAMINATION: Pleasant female seated comfortably. She has some tenderness to palpation of the cervical paraspinal muscles as well as the trapezius muscles. There are areas of soreness in the supraorbital areas and the temporal areas. CONSENT: Verbal and written consent was obtained from the patient. Risks and benefits were reviewed. Risks include allergic reaction, weakness and infection. She wishes to proceed. DESCRIPTION OF PROCEDURE: The patient was taken back into the special procedures room of [facility] where she was maintained in a seated position. Botox was reconstituted with 95 International Units in each vial of preservative-free sodium saline. A 25 gauge 1.5-inch needle was used to inject Botox into the neck and trapezius muscles and a 30-gauge needle was used to inject him into the facial muscles. A total of 20 International Units was injected after negative aspiration into the left paraspinal muscle, 20 International Units after negative aspiration into the right paraspinal muscle, 25 International Units after negative aspiration into the left trapezius muscle and 30 International Units into the right trapezius muscle after negative aspiration, 15 International Units after negative aspiration into the left supraorbital muscle midline, 15 International Units into the right supraorbital muscle midline, 30 International Units into the left temporalis muscle and the remaining Botox of 30 International Units into the right temporalis muscle. Injections were well tolerated and all done after negative aspiration. DISPOSITION: 1. The patient is taken out into the discharge recovery area where she will be discharged home once discharge criteria have been met. 2. Follow up in the [facility] Sports Medicine office in 4 weeks' time. I attest to the content of the Intraoperative Record and any orders documented therein. Any exception s are noted below.
== END | disposition home or self-care (01) ==
LOC: X.SURG 13:40
PROVIDERS: ATTEND Physical Medicine & Rehabilitation
DX: G43.909 Migraine, unspecified, not intractable, without status migrainosus (principal); Z79.899 Other long term (current) drug therapy; M54.16 Radiculopathy, lumbar region; G89.29 Other chronic pain

== ENCOUNTER 2019-06-28 14:27 | Observation (INO) ==
[2019-06-28] MEDS ORDERED: SODIUM CHLORIDE 0.9% 500 ML IV STA (14:40)
[2019-06-28 14:57] LABS: Basophils # (auto) 0.02 K/uL (0-0.2); Basophils % (auto) 0.3 %; Eosinophils # (auto) 0.18 K/uL (0-0.5); Eosinophils % (auto) 2.7 %; Hematocrit (blood only) 40.6 % (37-47); Hemoglobin 14.3 g/dL (12.0-16.0); Immature Granulocytes # (auto) 0.03 K/uL (0.00-0.02); Immature Granulocytes % (auto) 0.5 %; Lymphocytes # (auto) 2.13 K/uL (1.2-3.4); Lymphocytes % (auto) 32.2 %; Mean Corpuscular Hemoglobin 31.3 pg (25-34); Mean Corpuscular Hgb Conc 35.2 g/dL (32-36); Mean Corpuscular Volume 88.8 fL (80-100); Mean Platelet Volume 10.3 fL (7.4-10.4); Monocytes # (auto) 0.54 K/uL (0.11-0.59); Monocytes % (auto) 8.2 %; Neutrophils # (auto) 3.71 K/uL (1.4-6.5); Neutrophils % (auto) 56.1 %; Platelet Count 276 K/uL (130-400); RDW Coefficient of Variation 14.6 % (11.5-14.5); RDW Standard Deviation 47.4 fL (36.4-46.3); Red Blood Count 4.57 M/uL (4.2-5.4); White Blood Count 6.61 K/uL (4.8-10.8)
[2019-06-28 15:11] LABS: Partial Thromboplastin Ratio 0.9; Partial Thromboplastin Time 25.7 Seconds (21.0-31.0); Prothrombin Time 10.1 Seconds (9.0-12.0)
[2019-06-28 15:17] LABS: Alanine Aminotransferase 40 U/L (12-78); Albumin Level 4.2 gm/dl (3.4-5.0); Aspartate Aminotransferase 19 U/L (15-37); BUN Creatinine Ratio 14.3 (10-20); Blood Urea Nitrogen 13 mg/dl (7-18); Calcium 9.3 mg/dl (8.5-10.1); Carbon Dioxide 31 mmol/L (21-32); Chloride 104 mmol/L (98-107); Est GFR (African American) 81.6; Est GFR (Non-African American) 70.4; Glucose 107 mg/dl (70-99); Lipase 160 U/L (73-393); Magnesium 2.1 mg/dl (1.8-2.4); Potassium 3.9 mmol/L (3.5-5.1); Sodium 139 mmol/L (136-145)
--- NOTE | 2019-06-28 15:25 | XRay Report ---
XR chest 1V portable HISTORY: 63 years-old Female Chest Pain acute atypical chest pain COMPARISON: Chest CT 04/03/2017 TECHNIQUE: Portable AP view of the chest FINDINGS: Cardiac mediastinal and hilar silhouettes are within normal limits in size. No pneumothorax, pleural effusion, focal airspace consolidation or overt pulmonary edema. Degenerative changes of the shoulder s and spine. Cholecystectomy. IMPRESSION: No acute process. ACT 112: Negative or not required by law. The above report was generated using voice recognition software. It may contain grammatical, syntax o r spelling errors. Electronically signed by: Phillip Feliciano M.D. 06/28/2019 3:23 PM
[2019-06-28 15:29] LABS: Albumin Globulin Ratio 1.1 (0.9-2); Alkaline Phosphatase 91 U/L (45-117); Bilirubin,Total 0.2 mg/dl (0.2-1); Globulin 3.7 gm/dl (2.5-4.0); Phosphorus 3.7 mg/dl (2.5-4.9); Total Protein 7.9 gm/dl (6.4-8.2); Troponin I < 0.015 ng/ml (0-0.045)
[2019-06-28] MEDS ORDERED: FAMOTIDINE 20MG IV PUSH 20 MG/5 ML SYR IV STA (16:32)
[2019-06-28] MEDS ORDERED: ACETAMINOPHEN 1,000 MG/100 ML VIAL IV STA (16:32)
--- NOTE | 2019-06-28 16:32 | Emergency Department Note ---
Entered by Darrin Lewis acting as a scribe for Leighton Baxter MD History of Present Illness General Chief complaint: Chest Pain Stated complaint: chest pain Time Seen by Provider: 06/28/19 14:34 Source: patient History of Present Illness Onset (ago): hour(s) 3 (3.5) Location: chest Pain Consistency: + other (waxing and waning) Maximum Pain Intensity: 2 Current Pain Intensity: 2 Exacerbated By: not by movement Associated symptoms: + shortness of breath Treatments prior to arrival: other (baby aspirin) The patient is a 63 year old F who presents to the Emergency Room with complaints of waxing and waning chest pain that started 3.5 hours ago. She states that she is supposed to have a cardiac catheterization performed later today. She notes that she called her production material handler about her current symptoms and was told to come into the ED. She states that her episode of chest pain, today, started as chest discomfort. She notes that it progressed to severe squeezing. She adds that she took a baby aspirin, 2 hours ago. She states that she is currently experiencing mild chest discomfort. She rates her pain as 2 out of 10. She notes that her episodes of chest pain started in the beginning of May. She states that her first episode of chest pain occurred when she was on a plane going to [place]. She notes that in addition with her chest pain she experienced sweating and vomiting. She adds that when she got off the plan for her layover in [place], [place], paramedics at the airport took her blood pressure and performed an EKG. She notes that the paramedics told her that she had a systolic blood pressure of 182 and an abnormal EKG. She states that she saw a doctor in [place] that informed her that her cardiac enzymes were normal. She notes that while she was in [place], her blood pressure was high. She adds that her systolic blood pressure was 175 mmHg so she increased her metoprolol medication by 25 mg. She states that this brought her blood pressure down to 140. She notes that she has experienced 3 more episodes of chest pain after she came back home to [place], [place]. She adds that he last episode of chest pain, prior to today, occurred last Monday after she received a stress test. She denies that he chest pain is worsened with exertion. She adds that she gets shortness of breath when she walks up the stairs. She states that she has not eaten since 3 hours ago. She notes that she does not move around much due to a history of back pain. She adds that she was a former smoker. Home Medications Home Medications Medication Instructions Recorded Confirmed Type carisoprodol [Soma] 350 mg PO HS 03/23/18 06/28/19 History esomeprazole magnesium 40 mg PO BID 03/23/18 06/28/19 History gabapentin 600 mg PO TID 03/23/18 06/28/19 History hyoscyamine sulfate [Levsin] 0.125 mg PO TID PRN 03/23/18 06/28/19 History levothyroxine 25 mcg PO QAM 03/23/18 06/28/19 History metoprolol succinate 100 mg PO HS 03/23/18 06/28/19 History pravastatin 40 mg PO HS 03/23/18 06/28/19 History sennosides 8.6 mg PO DAILY 03/23/18 06/28/19 History Maalox Advanced 1 tab PO BID PRN 06/28/19 06/28/19 History aspirin 81 mg PO DAILY PRN 06/28/19 06/28/19 History docusate sodium 100 mg PO DAILY 06/28/19 06/28/19 History metoprolol succinate 25 mg PO QAM 06/28/19 06/28/19 History tramadol 50 - 100 mg PO Q6 PRN 06/28/19 06/28/19 History Allergies Allergy/AdvReac Type Severity Reaction Status Date / Time aspirin AdvReac Mild SEVERE Verified 06/28/19 15:23 STOMACH PAIN cephalexin AdvReac Mild GI SYMPTOMS Verified 05/01/19 14:13 codeine AdvReac Mild SEVERE Verified 05/01/19 14:13 STOMACH PAIN NSAIDS (Non-Steroidal AdvReac Mild STOMACH Verified 05/01/19 14:13 Anti-Inflamma PAIN Past Med/Surg History Medical History Anxiety DOES NOT TAKE MEDS Barretts esophagus Depression DOES NOT TAKE MEDS Fibromyalgia GERD (gastroesophageal reflux disease) History of stomach ulcers Hyperlipidemia Hypertension Hypothyroidism IBS (irritable bowel syndrome) Migraine Surgical History Fusion of spine L4, L5 History of adenoidectomy History of appendectomy History of cardiac cath > 10 YEARS AGO - [facility] - CP - NO STENTS/ANGIOPLASTY - NO NEWS PRODUCER History of section History of cholecystectomy History of colonoscopy History of hysterectomy History of laparoscopy History of tonsillectomy History of tooth extraction Family History Uncle Colon cancer Social History Preferred Language: Malay Communication Ability: Effective Stripper And Printer Required: No Beliefs That Will Affect Care: None Current Living Situation: Spouse Other Information That Helps Us Care for You: No Feels Safe at Home: Yes Safety Concerns: Feels Safe At This Time Smoking Status: Former smoker Tobacco Type: cigarettes ; Cigarettes Per Day: 20 ; Do You Dip or Chew Tobacco: No ; Smoking End Date: 1983 ; Second Hand Exposure: No ; Tobacco Cessation Education Requested by Patient: No Hx Alcohol Use: Yes Alcohol type: beer and hard liquor Hx Substance Use: No Review of Systems See HPI for pertinent positives & negatives. and A total of 10 systems reviewed and were otherwise negative Physical Exam Vital Signs Vital Signs - 24 hr 06/28/19 14:28 06/28/19 15:23 06/28/19 16:41 Temperature 36.4 C L Temperature Source Oral Pulse Rate 65 70 Pulse Rate [Apical] 76 Respiratory Rate 20 18 18 Respiratory Effort / Characteristics Non-Labored Spontaneous Respiratory Depth Normal Respiratory Pattern Regular Blood Pressure 163/96 H 148/74 H Blood Pressure [Left Arm] 156/93 H Blood Pressure Mean 118 Blood Pressure Mean [Left Arm] 114 Pulse Oximetry 99 98 100 Oxygen Delivery Method Room Air Room Air Room Air Sepsis Recent Fever Within 48 Hours No Sepsis New/Unexplained Change in Mental Status No Sepsis Action Taken by Nursing No Action Required GENERAL: Awake, alert, well-appearing, in no distress HENT: Normocephalic, atraumatic. Oropharynx with dry mucous membranes and otherwise unremarkable. EYES: Normal conjunctiva. Sclera non-icteric. NECK: Supple. No nuchal rigidity. FROM. No JVD. RESPIRATORY: CTAB CARDIAC: Regular rate, normal rhythm. Extremities warm and well perfused. Pulses equal. ABDOMEN: Soft, non-distended. No tenderness to palpation. No rebound or guarding. No masses. RECTAL: Deferred. MUSCULOSKELETAL: Chest examination reveals no tenderness. The back is symmetrical on inspection without obvious abnormality. There is no CVA tenderness to palpation. No joint edema. LOWER EXTREMITIES: Calves are equal size bilaterally and non-tender. No edema. No discoloration. NEURO: Normal sensorium. No sensory or motor deficits noted. SKIN: No rash or jaundice noted. Course Course 1441: The patient was evaluated in room B11B. A complete history and physical exam was performed. 1501: I reviewed the patient's case with Dr. Guzman, Cardiology [place]. He states that the plan is to get the patient on the [facility] cath schedule after 5pm. He tells me to admit the patient to the hospital service. He states that if the patient is chest pain free, to hold off on giving the patient heparin. 1621: I reviewed the patient's case with Dr. Lien Kim, [facility] Hospitalist. She will evaluate the patient for further management. 1630: The ED nurse states that the patient is complaining of more chest pain and a headache. Administered Medications Discontinued Medications Fentanyl Citrate (Fentanyl Citrate) Confirm Administered Dose 100 mcg .ROUTE .STK-MED ONE Stop: 06/28/19 16:55 Last Admin: 06/28/19 17:58 Dose: Not Given Documented by: [id number] Heparin Sodium (Porcine) (Heparin Iv Bolus (Aquatic Biologist Use Only)) Confirm Admin istered Dose 10,000 units .ROUTE .STK-MED ONE Stop: 06/28/19 16:55 Last Admin: 06/28/19 17:59 Dose: Not Given Documented by: [id number] Heparin Sodium/Sodium Chloride (Heparin/Nss 1000 Unit/500ml Flush Bag) Confirm Administered Dose 3,000 units IV .STK-MED ONE Stop: 06/28/19 16:56 Last Admin: 06/28/19 17:59 Dose: Not Given Documented by: [id number] Sodium Chloride (Nss) 500 mls @ 125 mls/hr IV .Q4H STA Stop: 06/28/19 18:39 Last Infusion: 06/28/19 20:08 Dose: 0 mls/hr Documented by: [id number] Admin: 06/28/19 15:19 Dose: 125 mls/hr Documented by: [id number] Acetaminophen (Ofirmev) 1,000 mg in 100 mls @ 400 mls/hr IV NOW STA Stop: 06/28/19 16:46 Last Admin: 06/28/19 17:58 Dose: Not Given Documented by: [id number] Famotidine (Pepcid 20mg Iv Push) 20 mg in 5 mls @ 2.5 mls/min IV NOW STA Stop: 06/28/19 16:33 Last Admin: 06/28/19 17:58 Dose: Not Given Documented by: [id number] Sodium Chloride (Nss 1000ml) 1,000 mls @ 100 mls/hr IV .Q10H JOSEPH Stop: 06/28/19 22:44 Last Admin: 06/28/19 17:45 Dose: 100 mls/hr Documented by: [id number] Midazolam HCl (Versed) Confirm Administered Dose 2 mg .ROUTE .STK-MED ONE Stop: 06/28/19 16:56 Last Admin: 06/28/19 17:59 Dose: Not Given Documented by: [id number] Nicardipine HCl (Cardene) Confirm Administered Dose 25 mg .ROUTE .STK-MED ONE Stop: 06/28/19 16:55 Last Admin: 06/28/19 17:58 Dose: Not Given Documented by: [id number] Nitroglycerin/Dextrose (Nitroglycerin/D5w 100 Mcg/Ml 20ml Syringe) Confirm Administered Dose 2,000 mcg .ROUTE .STK-MED ONE Stop: 06/28/19 16:56 Last Admin: 06/28/19 17:59 Dose: Not Given Documented by: [id number] Tramadol HCl (Ultram) 50 mg PO Q6 PRN PRN Reason: Pain Stop: 07/28/19 17:45 Last Admin: 06/28/19 19:27 Dose: 50 mg Documented by: [id number] Medical Decision Making Differential Diagnosis Differential diagnosis: Etiologies such as cardiac ischemia, aortic dissection, pulmonary embolism, pneumonia, pneumothorax, musculoskeletal, infections, pericarditis, myocarditis, esophageal rupture, gastrointestinal, as well as others were entertained. Medical Records Attestation: I reviewed the patient's medical records. Home Medications Current Medication List: was personally reviewed by me Laboratory Data Attestation: I reviewed the patient's lab results. Result diagrams: 06/28/19 14:40 06/28/19 14:40 Lab Results 06/28/19 06/28/19 06/28/19 Range/Units 14:40 14:40 14:40 WBC 6.61 (4.8-10.8) K/uL RBC 4.57 (4.2-5.4) M/uL Hgb 14.3 (12.0-16.0) g/dL Hct 40.6 (37-47) % MCV 88.8 (80-100) fL MCH 31.3 (25-34) pg MCHC 35.2 (32-36) g/dL RDW Std Deviation 47.4 H (36.4-46.3) fL RDW Coeff of Melani 14.6 H (11.5-14.5) % Plt Count 276 (130-400) K/uL MPV 10.3 (7.4-10.4) fL Immature Gran % (Auto) 0.5 % Neut % (Auto) 56.1 % Lymph % (Auto) 32.2 % [place] % (Auto) 8.2 % Eos % (Auto) 2.7 % Baso % (Auto) 0.3 % Immature Gran # (Auto) 0.03 H (0.00-0.02) K/uL Neut # (Auto) 3.71 (1.4-6.5) K/uL Lymph # (Auto) 2.13 (1.2-3.4) K/uL [place] # (Auto) 0.54 (0.11-0.59) K/uL Eos # (Auto) 0.18 (0-0.5) K/uL Baso # (Auto) 0.02 (0-0.2) K/uL PT 10.1 (9.0-12.0) Seconds INR 1.0 (0.9-1.1) APTT 25.7 (21.0-31.0) Seconds PTT Ratio 0.9 Sodium 139 (136-145) mmol/L Potassium 3.9 (3.5-5.1) mmol/L Chloride 104 (98-107) mmol/L Carbon Dioxide 31 (21-32) mmol/L Anion Gap 4.0 (3-11) BUN 13 (7-18) mg/dl Creatinine 0.88 (0.6-1.2) mg/dl Est Cr Clr Drug Dosing 72.0 ml/min Est GFR ( Amer) 81.6 Est GFR (Non-Af Amer) 70.4 BUN/Creatinine Ratio 14.3 (10-20) Glucose 107 H (70-99) mg/dl Calcium 9.3 (8.5-10.1) mg/dl Phosphorus 3.7 (2.5-4.9) mg/dl Magnesium 2.1 (1.8-2.4) mg/dl Total Bilirubin 0.2 (0.2-1) mg/dl AST 19 (15-37) U/L ALT 40 (12-78) U/L Alkaline Phosphatase 91 (45-117) U/L Troponin I < 0.015 (0-0.045) ng/ml Total Protein 7.9 (6.4-8.2) gm/dl Albumin 4.2 (3.4-5.0) gm/dl Globulin 3.7 (2.5-4.0) gm/dl Albumin/Globulin Ratio 1.1 (0.9-2) Lipase 160 (73-393) U/L TSH 2.100 (0.300-4.500) uIu/ml Imaging Data Radiologist's Impression: Radiology results as stated below per my review and the radiologist's interpretation: XR chest 1V portable HISTORY: 63 years-old Female Chest Pain acute atypical chest pain COMPARISON: Chest CT 04/03/2017 TECHNIQUE: Portable AP view of the chest FINDINGS: Cardiac mediastinal and hilar silhouettes are within normal limits in size. No pneumothorax, pleural effusion, focal airspace consolidation or overt pulmonary edema. Degenerative changes of the shoulders and spine. Cholecystectomy. IMPRESSION: No acute process. ACT 112: Negative or not required by law. The above report was generated using voice recognition software. It may contain grammatical, syntax or spelling errors. Electronically signed by: Phillip Feliciano M.D. 06/28/2019 3:23 PM ECG Data Attestation: I personally reviewed and interpreted this ECG as follows: Indication: + chest pain Rate (beats per minute): 64 Rhythm: + normal sinus ECG [place]: + Normal ECG ST segments: + Nonspecific ST abnormalities (anteriorly); no ST depression and no ST elevation ECG Findings: no PACs and no PVCs Comparison ECG Date: from (06/29/15) Change: the following changes noted (ST abnormalities anteriorly are different) Blood Pressure Blood Pressure Findings: Elevated blood pressure Blood Pressure Disposition: further management by hospitalist ANABEL Cazares The patient is a pleasant 63-year-old woman with a past medical history of fibromyalgia, hyperlipidemia, hypertension who presents to the emergency department with recurrent episodes of substernal chest pain over the past month referred to the emergency department by her production material handler, Dr. Gonzalez again, for heart catheterization given the persistence of her symptoms per HPI. Of note, the patient reports being evaluated in outside hospitals for similar symptoms over the past month and reports having a stress test on Monday. The patient denies any progressive pattern of exertional pain rather her symptoms frequently occur at rest. On arrival the patient is in no acute distress, afebrile with stable vital signs. The patient reports symptoms that began earlier today have essentially resolved. She reported onset of symptoms around noon with a worsening around 1 but took 2 aspirin with subsequent improvement. On arrival the patient is no acute distress, afebrile stable vital signs. EKG with nonspecific ST abnormality/ST-TW flattening in the anterior leads which is new from 2016. However there is no overt ST elevation or depression. Chest x-ray negative for acute process. WBC, H/H and platelets within normal limits. Chemistry without acidosis. Electrolytes and LFTs unremarkable. Troponin negative/undetectable. I discussed the case with Dr. Guzman, interventional cardiology, who was aware of the patient's referral and were planning to put her on the schedule for heart cath at the end of the day today likely after 5 PM. Agrees that given the patient is pain-free can defer heparin at this time. Case discussed with Dr. Lien Kim, [facility] hospitalist, who evaluate the patient for admission. Patient transferred to crime lab analyst. Impression & Plan Substernal chest pain, Hyperlipidemia, Atypical chest pain, Hypertension Discharge Plan Visit Data *Final* Discharge Date/Time: 06/28/19 16:41 Chief Complaint: Chest Pain Stated Complaint: chest pain ED Provider: Leighton Baxter Discharge Problem: Substernal chest pain, Hyperlipidemia, Atypical chest pain, Hypertension Patient Disposition: Admitted As Inpatient Discharge Instructions Interventions: ED Discharge Assessment Last Done: 06/28/19 16:41 The scribe's documentation has been prepared under my direction and personally reviewed by me in its entirety. I confirm that the note above accurately reflec ts all work, treatment, procedures, and medical decision making performed by me.
[2019-06-28] MEDS ORDERED: HEPARIN (PORCINE) 1000 UNIT/ML 10 ML (CATH LAB USE ONLY) ONE (16:54)
[2019-06-28] MEDS ORDERED: NiCARDipine HCL INJ 2.5 MG/ML 10 ML AMP ONE (16:54)
[2019-06-28] MEDS ORDERED: fentaNYL citrate 100 MCG/2 ML VIAL ONE (16:54)
[2019-06-28] MEDS ORDERED: MIDAZOLAM HCL 1 MG/ML 2ML VIAL ONE (16:55)
[2019-06-28] MEDS ORDERED: NITROGLYCERIN/D5W 100MCG/ML 20ML SYR ONE (16:55)
--- NOTE | 2019-06-28 17:15 | Electrocardiogram Report ---
Test Reason : Blood Pressure : / mmHG Vent. Rate : 064 BPM Atrial Rate : 064 BPM P-R Int : 166 ms QRS Dur : 094 ms QT Int : 432 ms P-R-T Axes : 059 030 050 degrees QTc Int : 445 ms Normal sinus rhythm Left atrial enlargement Minor Nonspecific ST abnormality Anterolateral leads Abnormal ECG When compared with ECG of 29-JUN-2015 09:49, Nonspecific ST abnormality Anterolateral leads more pronounced Otherwise no significant change Confirmed by Pineda Rodriguez ([id number]) on 06/28/2019 5:14:51 PM Referred By: Confirmed By:Pineda Rodriguez
--- NOTE | 2019-06-28 17:36 | Pre Anesthesia Assessment ---
Date of Service June 28, 2019 Pre Sedation Assessment Vital Signs Temp Pulse Pulse Resp BP BP Pulse Ox 06/28/19 16:41 70 18 148/74 H 100 06/28/19 15:23 76 18 156/93 H 98 06/28/19 14:28 97.5 F L 65 20 163/96 H 99 Cardiovascular RRR, no murmur, no edema Respiratory normal respiratory effort, lungs clear to auscultation Pre-Sedation Airway Assessment Smoking Status: Former smoker Hx Sleep Apnea: No Hx Difficult Intubation: No Short, Thick Neck: No Thyromental Distance: > or= 3.5 Finger Breadths Oral Cavity: + WNL Mallampati Class: III Procedure Planning Contraindications for Sedation: none Current Medications Reviewed: Yes Notes The planned sedation has been discussed with the patient. Informed Consent was obtained. I have identified the patient, determined the appropriateness of sedation and have assessed the patient immediately prior to the procedure. All medicine(s) and interventions are by my order.
--- NOTE | 2019-06-28 17:36 | History & Physical Report ---
Date of Service June 28, 2019 Assessment & Plan (1) Chest pain: 2. Hypertension 3. Dyslipidemia 4. Hypothyroidism 5. History of Pugh's esophagus Patient referred in the setting of active chest pain, cardiac risk factors and subtle EKG changes. Plan to proceed with cardiac catheterization to rule out high risk CAD. Discussed risk, benefits, alternatives of procedure and she is willing to proceed. History of Present Illness Primary Care Provider: Na Faria MD Mrs. Elias is a very pleasant 63-year-old woman referred by her linux support engineer, Dr. Mccarthy to [facility] for cardiac catheterization the setting of active chest pain. Patient reports longstanding chest symptoms for more than a year. Symptoms have dramatically increased over the last several weeks. Was flying back from [place] and developed chest pain with associated nausea vomiting in the [place] and was evaluated at a local hospital. Work-up reportedly negative for ACS. Had a recent stress test which was negative. Despite work-up has continued to have pain including rest pain in Dr. Mccarthy's office today. No prior cardiac history. Reports possibly having a cardiac catheterization more than 20 years ago. Has hypertension, poorly controlled dyslipidemia. Quit smoking more than 20 years ago. On arrival here EKG showed sinus rhythm with nonspecific T wave flattening in V2, V3. Troponin negative. Chest x-ray unremarkable. Allergies Allergy/AdvReac Type Severity Reaction Status Date / Time aspirin AdvReac Mild SEVERE Verified 06/28/19 15:23 STOMACH PAIN cephalexin AdvReac Mild GI SYMPTOMS Verified 05/01/19 14:13 codeine AdvReac Mild SEVERE Verified 05/01/19 14:13 STOMACH PAIN NSAIDS (Non-Steroidal AdvReac Mild STOMACH Verified 05/01/19 14:13 Anti-Inflamma PAIN Home Medications Home Medications Medication Instructions Recorded Confirmed Type carisoprodol [Soma] 350 mg PO HS 03/23/18 06/28/19 History esomeprazole magnesium 40 mg PO BID 03/23/18 06/28/19 History gabapentin 600 mg PO TID 03/23/18 06/28/19 History hyoscyamine sulfate [Levsin] 0.125 mg PO TID PRN 03/23/18 06/28/19 History levothyroxine 25 mcg PO QAM 03/23/18 06/28/19 History metoprolol succinate 100 mg PO HS 03/23/18 06/28/19 History pravastatin 40 mg PO HS 03/23/18 06/28/19 History sennosides 8.6 mg PO DAILY 03/23/18 06/28/19 History aspirin 81 mg PO DAILY PRN 06/28/19 06/28/19 History calcium carbonate-simethicone 1 tab PO BID PRN 06/28/19 06/28/19 History [Maalox Advanced] docusate sodium 100 mg PO DAILY 06/28/19 06/28/19 History metoprolol succinate 25 mg PO QAM 06/28/19 06/28/19 History tramadol 50 - 100 mg PO Q6 PRN 06/28/19 06/28/19 History Past Med/Surg History Social History Preferred Language: Welsh Communication Ability: Effective Stuffed Casing Tier Required: No Beliefs That Will Affect Care: None Current Living Situation: Spouse Other Information That Helps Us Care for You: No Feels Safe at Home: Yes Safety Concerns: Feels Safe At This Time Smoking Status: Former smoker Tobacco Type: cigarettes ; Cigarettes Per Day: 20 ; Do You Dip or Chew Tobacco: No ; Smoking End Date: 1983 ; Second Hand Exposure: No ; Tobacco Cessation Education Requested by Patient: No Hx Alcohol Use: Yes Alcohol type: beer and hard liquor Hx Substance Use: No Review of Systems Review of Systems: All systems reviewed & are unremarkable except as noted in HPI & below Physical Exam Physical Exam: General: Comfortable, no acute distress HEENT: Sclerae anicteric, mucous membranes moist Lungs: Clear to auscultation bilaterally, no rhonchi or wheezes Cardiac: Regular rate and rhythm, no murmurs. No JVD. Abdomen: Soft, nontender, nondistended, positive bowel sounds. Extremities: Warm, well perfused, no edema. 2+ radial pulses Skin: No rashes or lesions. Neuro: Nonfocal Psych: Alert orient x3, normal affect and mood Results & Data Vital Signs (Past 12 Hours) Vital Signs Temp Pulse Pulse Resp BP BP Pulse Ox 06/28/19 16:41 70 18 148/74 H 100 06/28/19 15:23 76 18 156/93 H 98 06/28/19 14:28 97.5 F L 65 20 163/96 H 99 PG Care Time/CCT Total # of Minutes Spent Total Time Spent with Patient: Total time spent is greater than 50% in coordination of care (as documented) at patient's floor/unit and/or counseling patient:
--- NOTE | 2019-06-28 17:37 | Post Anesthesia Assessment ---
Date of Service June 28, 2019 Post Sedation Assessment Vital Signs Temp Pulse Pulse Resp BP BP Pulse Ox 06/28/19 16:41 70 18 148/74 H 100 06/28/19 15:23 76 18 156/93 H 98 06/28/19 14:28 97.5 F L 65 20 163/96 H 99 Recovery Score Activity: Moves 4 extremities Respiration: Deep Breath/Cough Circulation: +/-20% PreAnes Value Consciousness: Fully Awake Oxygen Saturation: O2 needed for >90% Discharge Sedation Level of Care: Fast Track Phase II Post Sedation Plan On clinical assessment, the patient appears to have tolerated the sedation without complications. Patient is recovering as anticipated. Patient will continue to be monitored by nursing and may be discharged when sedation discharge criteria are met per below protocol. Upon Completions of procedure up to 15 minutes continue every 5 minute vital signs and the P.A.R. score; then discharge to a Phase I or Fast Track to Phase II per the following guidelines: * Discharge Patient to appropriate Phase II area if PAR is 8 or greater or return to pre- procedure baseline. The post - procedure orders will be as directed. * If PAR score is less than 8 or not return to pre-procedure baseline then patient will follow Phase I monitoring till PAR is reached for Phase II. The Phase I may be done in procedure room or may call to secure a Phase I area. * If naloxone or flumazenil are used for reversal, hold in Phase I for continu ed monitoring from when last reversal dose was given for a minimum of 60 minutes or longer pending the nurse and/or physician discretion of patient condition before discharge to Phase II. Please call the Sedation Physician to re-evaluate and complete post-note for discharge to Phase II area. Do NOT discharge from procedure sedation or Phase 1 until post- sedation evaluation note is complete by procedure /sedation MD Sedation Discharge Instructions to be given to the patient at discharge to home.
--- NOTE | 2019-06-28 17:44 | Cardiac Catheterization ---
[facility] Data: Second Hand Cardiac Status Clinical evaluation leading to the procedure CAD Presenation: Unstable angina Anginal Classification: CCS IV Heart Failure: No Cardiogenic Shock within 24 Hours: No Cardiac Arrest within 24 Hours: No Imaging Studies Past 6 Months: Yes Stress Studies Past 6 Months: Yes Stress Echocardiogram: Yes - Negative Diagnostic Physicians Name: Jese Guzman MD Closure Device Percutaneous Entry Location: Radial Closure Device: Radial Band Recommendations: Medical Therapy and/or Counseling Intraprocedure Events Significant Disection: No Perforation: No Cardiac Cath Procedure Full Procedure Date June 28, 2019 Pre-Procedure Diagnosis Pre-Procedure Diagnosis: Angina AUC Score AUC Score: 7 Post-Procedure Diagnosis Post-Procedure Diagnosis: Mild CAD and Normal Intracardiac Pressures Procedure(s) Performed Procedure(s) Performed: Coronary Angiography and Left Heart Cath [employer] Jese Guzman MD Stock Handler(s) Sammy Estimated Blood Loss Estimated Blood Loss: 10 Medication(s) Medication(s): Fentanyl, Heparin, Lidocaine 1%, Nicardipine, Nitroglycerin and Versed Summary of Findings Indication: Recurrent chest pain Access: 6 Fr slender right radial artery Catheters: [place], pigtail Findings: LM -angiographically normal LAD -medium caliber vessel, mid segment luminal regularities. Small distal vessel tapers prior to apex. Medium first diagonal with 20 to 30% proximal disease. Ramusmedium caliber vessel, 40 to 50% proximal stenosis Circumflex -small caliber vessel with luminal irregularities RCA -dominant, large caliber vessel, no significant disease LVEDP -13 Arterial Closure: TR band Summary: 1. Mild to moderate nonobstructive coronary artery disease -40-50% proximal ramus 20 to 30% proximal first diagonal 2. Normal intracardiac filling pressure Recommendations: No coronary artery findings to explain recurrent rest chest pain. Continued ASCVD risk factor modification Further evaluation by patient's primary care provider, operater for noncardiac causes of chest pain Hemodynamics Rest Ao:: 176/82/124 Final Ao: 161/71/104 LV: 174/13 Recommendations Recommendations: Medical Therapy and/or Counseling Specimens Specimens: None Radiation Exposure (mGy) 458 Contrast (mls) 55 Fluids (cc crystalloids) Fluids (cc crystalloids): 40 Drains Drains: None Anesthesia Moderate Procedural Complication(s) None Disposition PCU I attest to the content of the Intraoperative Record and any orders documented therein. Any exceptions are noted below. [facility] Card Cath Procedure Codes Cardiac Catheterization Procedure 1: Cardiovascular Cath Procedures: 19022 Coronaries and LHC (+/-LV) Moderate Sedation Procedure 1: Sedation/Anesthesia: 89049 Mod Sedation by the same physician;Init15 Min Child Age 5 & Up PG Care Time/CCT Total # of Minutes Spent Total Time Spent with Patient: Total time spent is greater than 50% in coordination of care (as documented) at patient's floor/unit and/or counseling patient:
[2019-06-28] MEDS ORDERED: SODIUM CHLORIDE 0.9% 1000ML 1,000 ML IV SCH (17:45)
[2019-06-28] MEDS ORDERED: ONDANSETRON INJ 2 MG/ML 2 ML VIAL IV PRN (17:45)
[2019-06-28] MEDS ORDERED: ASPIRIN 81 MG ECTAB PO PRN (17:46)
[2019-06-28] MEDS ORDERED: TRAMADOL HCL 50 MG TABLET PO PRN (17:46)
[2019-06-28] MEDS ORDERED: CALCIUM CARBONATE SIMETHICONE PO PRN (17:46)
[2019-06-28] MEDS ORDERED: HYOSCYAMINE SULFATE 0.125 MG TAB PO PRN (17:50)
[2019-06-28] MEDS ORDERED: CARISOPRODOL 350 MG TABLET PO SCH (21:00)
[2019-06-28] MEDS ORDERED: PRAVASTATIN SOD 40 MG TAB PO SCH (21:00)
[2019-06-28] MEDS ORDERED: PANTOprazole 40 MG TAB PO SCH (21:00)
[2019-06-28] MEDS ORDERED: GABAPENTIN 600 MG TAB PO SCH (21:00)
[2019-06-28] MEDS ORDERED: METOPROLOL SUCC 50MG EXT REL TAB PO SCH (21:00)
--- NOTE | 2019-06-28 22:18 | Discharge Summary ---
Date of Service June 28, 2019 Admission HPI Per Admitting Provider Mrs. Elias is a very pleasant 63-year-old woman referred by her asset accountant, Dr. Mccarthy to [facility] for cardiac catheterization the setting of active chest pain. Patient reports longstanding chest symptoms for more than a year. Symptoms have dramatically increased over the last several weeks. Was flying back from [place] and developed chest pain with associated nausea vomiting in the [place] airport and was evaluated at a local hospital. Work-up reportedly negative for ACS. Had a recent stress test which was negative. Despite work-up has continued to have pain including rest pain in Dr. Mccarthy's office today. No prior cardiac history. Reports possibly having a cardiac catheterization more than 20 years ago. Has hypertension, poorly controlled dyslipidemia. Quit smoking more than 20 years ago. On arrival here EKG showed sinus rhythm with nonspecific T wave flattening in V2, V3. Troponin negative. Chest x-ray unremarkable. Discharge Data Consultations 06/28/19 15:56 ED Decision to Admit Stat Procedures Performed Operation Date: 06/28/19 17:00 Actual Procedures p Cath, Left with Cors and Vent - Nas Guzman MD s Cineradiography w/Routine Exam - Nas Guzman MD Hospital Course (1) Chest pain: Patient underwent cardiac catheterization via right radial artery. Found to mild to moderate non-obstructive CAD. No coronary artery cause for patient's rest pain. Patient admitted for observation post procedure. Patient relieved post cath findings and endorsed no further chest pain. No apparent access site complications. Discharged to home on prior home meds. She will follow-up with her PCP and prior asset accountant Dr. Mccarthy.
[2019-06-29] MEDS ORDERED: LEVOTHYROXINE SODIUM 25 MCG TABLET PO SCH (06:30)
[2019-06-29] MEDS ORDERED: DOCUSATE SODIUM 100 MG CAP PO SCH (09:00)
[2019-06-29] MEDS ORDERED: METOPROLOL SUCC 25MG EXT REL TAB PO SCH (09:00)
[2019-06-29] MEDS ORDERED: SENNA 8.6 MG TAB PO SCH (09:00)
== END 2019-06-28 20:59 | disposition home or self-care (01) ==
LOC: ED 14:27 → 2S 14:27

== ENCOUNTER 2025-01-29 14:42 | Observation (INO) ==
[2025-01-29 15:13] LABS: Hematocrit (blood only) 40.5 % (37.0-47.0); Hemoglobin 14.0 g/dl (12.0-16.0); Immature Granulocytes # (auto) 0.01 K/uL (0.01-0.20); Immature Granulocytes % (auto) 0.2 %; Mean Corpuscular Hemoglobin 29.7 pg (25.0-34.0); Mean Corpuscular Volume 86.0 fL (80.0-100.0); Platelet Count 260 K/uL (130-400); RDW Standard Deviation 42.3 fL (36.4-46.3); Red Blood Count 4.71 M/uL (4.20-5.40); White Blood Count 6.41 K/ul (4.8-10.8)
--- NOTE | 2025-01-29 15:27 | XRay Report ---
XR chest 1V not portable CLINICAL HISTORY: Chest pain, nonspecific COMPARISON STUDY: 07/28/2023 FINDINGS: Heart size and pulmonary vasculature are normal. No consolidation or pleural effusion. No p neumothorax. IMPRESSION: No acute findings. ACT 112: Negative or not required by law. Electronically signed by: Celestine Cotto M.D. 01/29/2025 3:26 PM
[2025-01-29 15:39] LABS: Alanine Aminotransferase 17 U/L (7-52); Alkaline Phosphatase 71 U/L (34-104); Anion Gap 8 (3-11); Bilirubin,Total 0.5 mg/dl (0.2-1.0); Blood Urea Nitrogen 9 mg/dl (6-23); Calcium 9.5 mg/dl (8.6-10.3); Carbon Dioxide 27 mmol/L (21-32); Chloride 103 mmol/L (98-107); Creatinine Clr Calc Pharmacy 66.9 ml/min; Potassium 3.7 mmol/L (3.5-5.1); Sodium 138 mmol/L (136-145)
[2025-01-29 15:41] LABS: INR 1.0 (0.9-1.1); Partial Thromboplastin Time 26 Seconds (21-31); Prothrombin Time 10.6 Seconds (9.0-12.0)
[2025-01-29 15:45] LABS: Albumin Globulin Ratio 1.7 (0.9-2); Globulin 2.7 gm/dl (2.5-4.0); Glucose 95 mg/dl (70-99(Fasting)); Total Protein 7.2 gm/dl (6.0-8.3)
--- NOTE | 2025-01-29 17:40 | Emergency Department Note ---
History of Present Illness General Chief complaint: Chest Pain Stated complaint: BACK AND CHEST PAIN Time Seen by Provider: 01/29/25 17:38 History of Present Illness This is a 69-year-old female that presents to the emergency department via private vehicle with complaints of "back and chest pain". The patient states that she began with left upper back pain this past Monday. She denies any trauma or injury. No exertional activities. She notes then she began with left back pain radiating into the left anterior chest. She also notes some intermittent difficulty breathing/chest tightness. She notes that the pain in the chest has been present for the entire day today. She does note a history of GI issues. Per review of the EMR the patient did undergo cardiac catheterization at this facility on 06/28/2019. At that time patient was found to have mild to moderate nonobstructive coronary artery disease with 40 to 50% proximal ramus as well as 20 to 30% proximal first diagonal. Normal intracardiac filling pressures were noted at that time. The patient does furnish a CT scan report of the abdomen/pelvis dated from earlier this month on the second that she notes that she notes was obtained secondary to some constipation. Scan was overall okay at that time other than she notes did note a trace pericardial effusion. Home Medications Medication Instructions Recorded Confirmed Type calcium carbonate 1,000 1 tab PO BID PRN Stomach Upset 06/28/19 01/29/25 History mg-simethicone 60 mg chewable tablet (Maalox Advanced) docusate sodium 100 mg capsule 100 mg PO HS 06/28/19 01/29/25 History levothyroxine 75 mcg tablet 75 mcg PO DAILYBB 11/23/20 01/29/25 History tamsulosin 0.4 mg capsule 0.4 mg PO QAM 06/25/24 01/29/25 History baclofen 10 mg tablet 10 mg PO BID PRN muscle spasms 01/29/25 01/29/25 History baclofen 10 mg tablet 10 mg PO HS 01/29/25 01/29/25 History buspirone 15 mg tablet 15 mg PO BID 01/29/25 01/29/25 History cetirizine 10 mg tablet (Zyrtec) 10 mg PO HS 01/29/25 01/29/25 History famotidine 20 mg tablet 20 mg PO BID 01/29/25 01/29/25 History gabapentin 100 mg capsule 100 mg PO TID PRN back/nerve pain 01/29/25 01/29/25 History gabapentin 600 mg tablet 1,200 mg PO HS 01/29/25 01/29/25 History gabapentin 600 mg tablet 600 mg PO QAM 01/29/25 01/29/25 History hyoscyamine sulfate 0.125 mg tablet 0.125 mg PO TID PRN Spasms 01/29/25 01/29/25 History lubiprostone 24 mcg capsule 24 mcg PO BID 01/29/25 01/29/25 History pantoprazole 40 mg tablet,delayed 40 mg PO BID 01/29/25 01/29/25 History release rosuvastatin 10 mg tablet 5 mg PO HS 01/29/25 01/29/25 History sucralfate 1 gram tablet 1 g PO TID PRN stomach pain 01/29/25 01/29/25 History tramadol 50 mg tablet 50 - 100 mg PO Q6 PRN Pain 01/29/25 01/29/25 History trazodone 100 mg tablet 200 mg PO HS 01/29/25 01/29/25 History Allergies Allergy/AdvReac Type Severity Reaction Status Date / Time aspirin AdvReac Mild SEVERE Verified 07/09/24 06:25 STOMACH PAIN cephalexin AdvReac Mild GI SYMPTOMS Verified 07/09/24 06:25 codeine AdvReac Mild SEVERE Verified 07/09/24 06:25 STOMACH PAIN NSAIDS (Non-Steroidal AdvReac Mild STOMACH Verified 07/09/24 06:25 Anti-Inflamma PAIN Past Med/Surg History Problem List (Updated 01/29/25 @ 22:37 by Dagoberto Varela PA-C) Upper back pain on left side (Acute) Left-sided chest pain (Acute) Elevated AFP Ovarian mass, right Encounter for pre-operative examination Right lumbar radiculopathy Hypertension (Acute) Atypical chest pain (Acute) Hyperlipidemia (Acute) Chest pain (Acute) Substernal chest pain (Acute) Precordial chest pain (Acute) Lumbago (Chronic) Hyperlipidemia (Chronic) Esophageal reflux (Chronic) Chondromalacia patellae (Chronic) Benign hypertension (Chronic) Pugh esophagus (Chronic) Fibromyalgia (Chronic) Aortic regurgitation (Chronic) GERD (gastroesophageal reflux disease) (Chronic) Migraine (Chronic) Medical History (Updated 01/29/25 @ 22:37 by Dagoberto Varela PA-C) Hx of chest pain Carpal tunnel syndrome on both sides Deviated nasal septum "slight" Incomplete bladder emptying follows with urology in [place] Aortic regurgitation follows with fragin History of asthma no longer uses inhaler - had "night time asthma"- has resolved Hx of migraines gets botox and no longer gets headaches Medical marijuana use uses thc cream on painful hands Anxiety and depression Spinal stenosis Peripheral neuropathy Chronic back pain Barretts esophagus Fibromyalgia History of stomach ulcers GERD (gastroesophageal reflux disease) IBS (irritable bowel syndrome) Hypothyroidism Hyperlipidemia Hypertension Surgical History Hx of cystoscopy Hx of arthroscopy of right knee Hx of lumbar discectomy (1996) History of tonsillectomy and adenoidectomy Status post epidural steroid injection multiple Family history of reaction to anesthesia BROTHER>NAUSEA History of dilatation and curettage History of bilateral tubal ligation History of esophagogastroduodenoscopy (EGD) History of laparoscopy History of colonoscopy History of hysterectomy RYLAN History of tooth extraction History of cholecystectomy History of appendectomy History of section Fusion of spine (2002) L4, L5 (per pt., failed) History of cardiac cath (06/2019) 06/2019 [facility] - no stents - follows with fragin (~ 6 months) > 10 YEARS AGO - [facility] - - NO STENTS/ANGIOPLASTY - NO BOTTOM MAN Family History Uncle Colon cancer Sister Breast cancer Aunt Breast cancer Family/Other Prostate cancer maternal cousin Denies family history of Ovarian cancer Social History Smoking Status: Never smoker Tobacco Type: Cigarettes Second Hand Exposure: No; Do You Dip or Chew Tobacco: No; Hx Alcohol Use: Yes Alcohol type: beer and hard liquor Hx Substance Use: Yes Last Used Substance Other:: med marijuana card Substance Use Type Other:: MEDICAL MARIJUANA CARD, RARE USE OF Preferred Language: Palauan Communication Ability: Effective Baton Teacher Required: No Beliefs That Will Affect Care: None Current Living Situation: Spouse Feels Safe at Home: Yes Assistive Devices: Glasses Review of Systems A total of 10 systems reviewed and were otherwise negative Physical Exam Vital Signs Vital Signs - 24 hr 01/29/25 14:43 01/29/25 14:49 01/29/25 17:45 Temperature 36.7 C Temperature Source Oral Pulse Rate 71 71 Pulse Rate [Apical] Pulse Rate from SpO2 Sensor Pulse Rhythm Regular Regular Pulse Rhythm [Apical] Respiratory Rate 20 18 Respiratory Effort / Characteristics Non-Labored Spontaneous Non-Labored Spontaneous Respiratory Depth Normal Normal Respiratory Pattern Regular Blood Pressure 173/84 H Blood Pressure [Right Arm] Blood Pressure Mean 113 Blood Pressure Mean [Right Arm] Blood Pressure Position Sitting Pulse Oximetry 100 100 Oxygen Delivery Method Room Air Room Air Room Air Sepsis Recent Fever Within 48 Hours No Sepsis New/Unexplained Change in Mental Status No Sepsis Action Taken by Nursing No Action Required 01/29/25 17:45 01/29/25 17:50 01/29/25 18:00 Temperature Temperature Source Pulse Rate 68 Pulse Rate [Apical] 73 Pulse Rate from SpO2 Sensor 51 L Pulse Rhythm Pulse Rhythm [Apical] Regular Respiratory Rate 18 Respiratory Effort / Characteristics Non-Labored Respiratory Depth Normal Respiratory Pattern Regular Blood Pressure 155/74 H Blood Pressure [Right Arm] 175/84 H Blood Pressure Mean 101 Blood Pressure Mean [Right Arm] 114 Blood Pressure Position Pulse Oximetry 100 98 Oxygen Delivery Method Room Air Sepsis Recent Fever Within 48 Hours Sepsis New/Unexplained Change in Mental Status Sepsis Action Taken by Nursing 01/29/25 18:33 01/29/25 19:06 01/29/25 19:06 Temperature Temperature Source Pulse Rate 71 60 Pulse Rate [Apical] Pulse Rate from SpO2 Sensor 73 53 L Pulse Rhythm Pulse Rhythm [Apical] Respiratory Rate 12 15 Respiratory Effort / Characteristics Respiratory Depth Respiratory Pattern Blood Pressure 150/81 H Blood Pressure [Right Arm] Blood Pressure Mean 126 Blood Pressure Mean [Right Arm] Blood Pressure Position Pulse Oximetry 97 98 Oxygen Delivery Method Sepsis Recent Fever Within 48 Hours Sepsis New/Unexplained Change in Mental Status Sepsis Action Taken by Nursing 01/29/25 19:36 01/29/25 19:41 01/29/25 20:00 Temperature Temperature Source Pulse Rate 59 L 66 Pulse Rate [Apical] 58 L Pulse Rate from SpO2 Sensor 59 L 66 Pulse Rhythm Pulse Rhythm [Apical] Respiratory Rate 15 19 22 Respiratory Effort / Characteristics Respiratory Depth Respiratory Pattern Blood Pressure Blood Pressure [Right Arm] 137/85 Blood Pressure Mean Blood Pressure Mean [Right Arm] 102 Blood Pressure Position Pulse Oximetry 98 99 98 Oxygen Delivery Method Room Air Sepsis Recent Fever Within 48 Hours Sepsis New/Unexplained Change in Mental Status Sepsis Action Taken by Nursing 01/29/25 20:00 01/29/25 20:00 01/29/25 20:12 Temperature Temperature Source Pulse Rate 63 Pulse Rate [Apical] Pulse Rate from SpO2 Sensor 61 Pulse Rhythm Pulse Rhythm [Apical] Respiratory Rate 14 Respiratory Effort / Characteristics Respiratory Depth Respiratory Pattern Blood Pressure 155/71 H 155/71 H Blood Pressure [Right Arm] Blood Pressure Mean 88 88 Blood Pressure Mean [Right Arm] Blood Pressure Position Pulse Oximetry 99 Oxygen Delivery Method Sepsis Recent Fever Within 48 Hours Sepsis New/Unexplained Change in Mental Status Sepsis Action Taken by Nursing 01/29/25 20:18 01/29/25 20:18 01/29/25 20:30 Temperature Temperature Source Pulse Rate Pulse Rate [Apical] 58 L Pulse Rate from SpO2 Sensor Pulse Rhythm Pulse Rhythm [Apical] Respiratory Rate 16 Respiratory Effort / Characteristics Respiratory Depth Respiratory Pattern Blood Pressure 166/74 H 164/81 H Blood Pressure [Right Arm] 155/71 H Blood Pressure Mean 121 118 Blood Pressure Mean [Right Arm] 99 Blood Pressure Position Pulse Oximetry 99 Oxygen Delivery Method Room Air Sepsis Recent Fever Within 48 Hours Sepsis New/Unexplained Change in Mental Status Sepsis Action Taken by Nursing 01/29/25 20:30 01/29/25 20:30 01/29/25 20:30 Temperature Temperature Source Pulse Rate 62 Pulse Rate [Apical] Pulse Rate from SpO2 Sensor 62 Pulse Rhythm Pulse Rhythm [Apical] Respiratory Rate 23 Respiratory Effort / Characteristics Respiratory Depth Respiratory Pattern Blood Pressure 164/81 H 164/81 H Blood Pressure [Right Arm] Blood Pressure Mean 118 118 Blood Pressure Mean [Right Arm] Blood Pressure Position Pulse Oximetry 100 Oxygen Delivery Method Sepsis Recent Fever Within 48 Hours Sepsis New/Unexplained Change in Mental Status Sepsis Action Taken by Nursing 01/29/25 20:48 Temperature Temperature Source Pulse Rate 65 Pulse Rate [Apical] Pulse Rate from SpO2 Sensor 68 Pulse Rhythm Pulse Rhythm [Apical] Respiratory Rate 22 Respiratory Effort / Characteristics Respiratory Depth Respiratory Pattern Blood Pressure Blood Pressure [Right Arm] Blood Pressure Mean Blood Pressure Mean [Right Arm] Blood Pressure Position Pulse Oximetry 99 Oxygen Delivery Method Sepsis Recent Fever Within 48 Hours Sepsis New/Unexplained Change in Mental Status Sepsis Action Taken by Nursing VITAL SIGNS - Vital signs and nursing notes were reviewed. Stable and afebrile. GENERAL -69-year-old female appearing her stated age who is in no acute distress. Communicates well with provider and answers questions appropriately. SKIN - Without rashes. No meningeal or petechial rash. HEAD - NC/AT. EYES - PERRL with EOMI bilaterally. Sclera anicteric. EARS - No deformities of external structures noted on gross examination bilaterally. NOSE - Midline and without cyanosis. No epistaxis or purulent drainage noted. MOUTH/OROPHARYNX - Without perioral cyanosis. NECK - Neck with FROM. No nuchal rigidity. LUNGS - CTA CARDIAC - RRR ABDOMEN - Abdominal contour normal without pulsations or visible masses. BS normoactive all four quadrants. No tenderness, palpable masses, hepatosplenomegaly, or ascites noted. EXTREMITIES - No clubbing or peripheral cyanosis. +5/5 strength noted in UE/LE bilaterally. NEUROLOGIC - Cranial nerves II through XII grossly intact. PSYCH -alert, oriented and pleasant on examination Course Administered Medications Discontinued Medications Al Hydrox/Mg Hydrox/Simethicone (Aluminum/Magnesium Susp 30 Ml Udc) 15 ml PO NOW STA Stop: 01/29/25 18:13 Last Admin: 01/29/25 18:13 Dose: 15 ml Documented By: STEVEN Baclofen (Baclofen 10 Mg Tab) 10 mg PO NOW STA Stop: 01/29/25 22:28 Last Admin: 01/29/25 23:15 Dose: 10 mg Documented By: FRANKLIN Buspirone HCl (Buspirone 15 Mg Tab) 15 mg PO NOW STA Stop: 01/29/25 22:28 Last Admin: 01/29/25 23:07 Dose: 15 mg Documented By: FRANKLIN Cetirizine HCl (Cetirizine Hcl 10 Mg Tablet) 10 mg PO NOW STA Stop: 01/29/25 22:32 Last Admin: 01/29/25 23:15 Dose: 10 mg Documented By: FRANKLIN Docusate Sodium (Docusate Sodium 100 Mg Cap) 100 mg PO NOW STA Stop: 01/29/25 22:32 Last Admin: 01/29/25 23:15 Dose: 100 mg Documented By: FRANKLIN Gabapentin (Gabapentin 600 Mg Tab) 1,200 mg PO NOW STA Stop: 01/29/25 22:28 Last Admin: 01/29/25 23:15 Dose: 1,200 mg Documented By: FRANKLIN Famotidine (Pepcid 20mg Iv Push) 20 mg in 5 mls @ 2.5 mls/min IV NOW STA Stop: 01/29/25 20:09 Last Admin: 01/29/25 20:18 Dose: 2.5 mls/min Documented By: STUART Pantoprazole Sodium (Protonix) 40 mg in 10 mls @ 5 mls/min IV NOW STA Stop: 01/29/25 22:33 Last Admin: 01/29/25 23:15 Dose: 5 mls/min Documented By: FRANKLIN Acetaminophen (Ofirmev) 1,000 mg in 100 mls @ 400 mls/hr IV ONE STA Stop: 01/29/25 23:53 Last Infusion: 01/30/25 01:36 Dose: Infused Documented By: Admin: 01/30/25 00:00 Dose: 400 mls/hr Documented By: GABE Ioversol (Optiray 320 125ml) 119 ml IV ONCE ONE Stop: 01/29/25 18:25 Last Admin: 01/29/25 18:24 Dose: 119 ml Documented By: NEREYDA Ioversol (Optiray 320 100ml) 93 ml IV ONCE ONE Stop: 01/29/25 22:34 Last Admin: 01/29/25 22:34 Dose: 93 ml Documented By: NEREYDA Morphine Sulfate (Morphine Sulfate 2 Mg/Ml Carp) 2 mg IV NOW STA Stop: 01/29/25 17:53 Last Admin: 01/29/25 18:14 Dose: 2 mg Documented By: STEVEN Ondansetron HCl (Ondansetron Inj 2 Mg/Ml 2 Ml Vial) 4 mg IV NOW STA Stop: 01/29/25 17:53 Last Admin: 01/29/25 18:14 Dose: 4 mg Documented By: STEVEN Sucralfate (Sucralfate 1 Gm/10 Ml Udc) 1 gm PO NOW STA Stop: 01/29/25 20:09 Last Admin: 01/29/25 20:18 Dose: 1 gm Documented By: STUART Trazodone HCl (Trazodone Hcl 100 Mg Tab) 200 mg PO NOW STA Stop: 01/29/25 22:31 Last Admin: 01/29/25 23:07 Dose: 200 mg Documented By: FRANKLIN Medical Decision Making Laboratory Data 01/29/25 14:58 01/29/25 14:58 Lab Results 01/29/25 01/29/25 Range/Units 14:58 18:08 WBC 6.41 (4.8-10.8) K/ul RBC 4.71 (4.20-5.40) M/uL Hgb 14.0 (12.0-16.0) g/dl Hct 40.5 (37.0-47.0) % MCV 86.0 (80.0-100.0) fL MCH 29.7 (25.0-34.0) pg MCHC 34.6 (32.0-36.0) g/dL RDW Std Deviation 42.3 (36.4-46.3) fL RDW Coeff of Melani 13.5 (11.5-14.5) % Plt Count 260 (130-400) K/uL MPV 10.4 (9.4-12.4) fL Immature Gran % (Auto) 0.2 % Neut % (Auto) 64.1 % Lymph % (Auto) 26.5 % Wright % (Auto) 7.2 % Eos % (Auto) 1.4 % Baso % (Auto) 0.6 % Neut # (Auto) 4.11 (1.40-6.50) K/uL Lymph # (Auto) 1.70 (1.20-3.40) K/uL Wright # (Auto) 0.46 (0.11-0.59) K/uL Eos # (Auto) 0.09 (0.00-0.50) K/uL Baso # (Auto) 0.04 (0.00-0.20) K/uL Immature Gran # (Auto) 0.01 (0.01-0.20) K/uL PT 10.6 (9.0-12.0) Seconds INR 1.0 (0.9-1.1) APTT 26 (21-31) Seconds PTT Ratio 1.0 Sodium 138 (136-145) mmol/L Potassium 3.7 (3.5-5.1) mmol/L Chloride 103 (98-107) mmol/L Carbon Dioxide 27 (21-32) mmol/L Anion Gap 8 (3-11) BUN 9 (6-23) mg/dl Creatinine 0.84 (0.6-1.2) mg/dl Est Cr Clr Drug Dosing 66.9 ml/min eGFR 75.65 BUN/Creatinine Ratio 10.7 (10-20) Glucose 95 (70-99(Fasting)) mg/dl Calcium 9.5 (8.6-10.3) mg/dl Total Bilirubin 0.5 (0.2-1.0) mg/dl AST 21 (13-39) U/L ALT 17 (7-52) U/L Alkaline Phosphatase 71 (34-104) U/L Troponin I High Sens < 2.3 < 2.3 (0-14) pg/ml Total Protein 7.2 (6.0-8.3) gm/dl Albumin 4.5 (3.4-5.0) gm/dl Globulin 2.7 (2.5-4.0) gm/dl Albumin/Globulin Ratio 1.7 (0.9-2) Lipase 19 (11-82) U/L Imaging Data Radiologist's Impression: Chest X-Ray 01/29/25 14:49 XR chest 1V not portable CLINICAL HISTORY: Chest pain, nonspecific COMPARISON STUDY: 07/28/2023 FINDINGS: Heart size and pulmonary vasculature are normal. No consolidation or pleural effusion. No pneumothorax. IMPRESSION: No acute findings. ACT 112: Negative or not required by law. Electronically signed by: Celestine Cotto M.D. 01/29/2025 3:26 PM Chest CTA 01/29/25 17:52 CT angiogram with and without IV contrast History: Chest pain COMPARISON: None TECHNIQUE: CT angiography of the chest was performed without IV contrast followed by IV contrast, including 3D post processing CTA image reconstruction. Dose reduction techniques were achieved by using automatic exposure control and/or adjustment of mA and/or kV according to patient size and/or use of iterative reconstruction technique. FINDINGS: Diagnostic quality: Adequate No thoracic aortic aneurysm or dissection. No intramural hematoma. Mild coronary calcification. Mild aortic valve calcification. There is no evidence for pulmonary embolism. The heart is not enlarged. There is a trace pericardial effusion. There are no abnormally enlarged hilar or mediastinal lymph nodes. The central tracheobronchial tree is clear. The lungs are clear. There is no pleural effusion. Limited visualized upper abdomen. No destructive osseous changes are seen. IMPRESSION: No acute thoracic aortic pathology. Trace pericardial effusion. Mild coronary and aortic valve calcification. Electronically signed by Jese Mercado 01-29-2025 7:45 PM MDM Narrative Patient was seen and evaluated as above in room A09a. Review was performed of triage nursing notes and vital signs. I did review pertinent previous visits and patient history. After obtaining a thorough history and physical examination the above work up was performed. Patient presents for evaluation of left upper back pain that radiates into the left side of the chest. She is well-appearing and nontoxic on examination. The patient does note history of GI issues as well. Options of care were discussed with the patient. IV access was established. Labs were drawn. EKG per my interpretation reveals sinus bradycardia at a rate of 59 bpm. QTc 419. QRS 90. No ST elevation. There is no leukocytosis or concerning anemia. Coags normal. No evidence of kidney or liver failure. Troponin x 2 negative. Lipase normal. The patient while here was medicated with morphine for pain, Zofran for nausea and also administered Maalox, and ultimately Carafate and Pepcid. She continues to feel unwell. CTA of the chest is as above and there is no dissection. Trace pericardial effusion which was noted on previous CT of abdomen/pelvis per patient earlier this month at [facility]. Mild coronary and aortic valve calcifications noted today on CT. I do believe that further evaluation and management in the inpatient setting is warranted. Overall low suspicion for ACS noting workup above, however do still believe that further evaluation and management in the inpatient setting is warranted. Case discussed with the hospitalist service. Please refer to further documentation regarding her stay. GCS: 15 In the evaluation and treatment of this patient the following differential diagnoses were entertained: PR, PE, pericarditis, pancreatitis, perforation, dissection, costochondritis, among others Impression & Plan Left-sided chest pain, Upper back pain on left side Discharge Plan Visit Data Chief Complaint: Chest Pain Stated Complaint: BACK AND CHEST PAIN ED Provider: Melchor Covarrubias ED Midlevel Provider: Dagoberto Varela Discharge Problem: Left-sided chest pain, Upper back pain on left side Patient Disposition: Admitted As Inpatient Condition: Good Discharge Instructions Interventions: ED Discharge Assessment Last Done: 01/30/25 00:56
[2025-01-29] MEDS: ALUMINUM/MAGNESIUM SUSP 30 ML UDC PO STA (18:13)
[2025-01-29] MEDS: ONDANSETRON INJ 2 MG/ML 2 ML VIAL IV STA (18:14)
[2025-01-29] MEDS: MoRPHine SULFATE 2 MG/ML CARP IV STA (18:14)
[2025-01-29] MEDS: OPTIRAY 320 125ml IV ONE (18:24)
--- NOTE | 2025-01-29 19:46 | CT Scan Report ---
CT angiogram with and without IV contrast History: Chest pain COMPARISON: None TECHNIQUE: CT angiography of the chest was performed without IV contrast followed by IV contrast, including 3D post processing CTA image reconstruction. Dose reduction techniques were achieved by using automatic exposure control and/or adjustment of mA and/or kV according to patient size and/or use of iterative reconstruction technique. FINDINGS: Diagnostic quality: Adequate No thoracic aortic aneurysm or dissection. No intramural hematoma. Mild coronary calcification. Mild aortic valve calcification. There is no evidence for pulmonary embolism. The heart is not enlarged. There is a trace pericardial effusion. There are no abnormally enlarged hilar or mediastinal lymph nodes. The central tracheobronchial tree is clear. The lungs are clear. There is no pleural effusion. Limited visualized upper abdomen. No destructive osseous changes are seen. IMPRESSION: No acute thoracic aortic pathology. Trace pericardial effusion. Mild coronary and aortic valve calcification. Electronically signed by Jese Mercado 01-29-2025 7:45 PM
[2025-01-29] MEDS: SUCRALFATE 1 GM/10 ML UDC PO STA (20:18)
[2025-01-29] MEDS: FAMOTIDINE 20MG IV PUSH 20 MG/5 ML SYR IV STA (20:18)
--- NOTE | 2025-01-29 21:40 | History & Physical Report ---
Date of Service January 29, 2025 Assessment & Plan (1) Hyperlipidemia: (2) Benign hypertension: (3) Upper back pain on left side: Plan Renetta Elias is a 69-year-old female with PMHx of HTN, HLD, Hypothyroidism, Pugh Esophagus(diagnosed on 2022), Migraine, recent surgery for carpal tunnel syndrome, Chronic lower back pain problem presented with left mid back pain radiating to Epigastric region for 4 days . She is being admitted for further evaluation and management of epigastric pain. #Epigastric pain -Symptoms started on Monday with left mid back pain radiating to epigastric region -Physical exam: Severe tenderness on epigastric region -Labs including CBC, CMP, Lipase looks normal - EKG with sinus bradycardia , no acute abnormalities . Troponin negative. Underwent Cardiac cath on 2019 with mild to moderate non obstructive CAD and nor mal intra cardiac filling pressure. -Less suspicious for cardiac cause of pain at this point. - Chest CTA done with no acute abnormalities - Pepcid 20mg IB BID - Protonix 40mg IV BID -For pain management: Tylenol IV and Morphine prn -Pending CTscan abdomen and Pelvis. Follow up with CT results -Pugh esophagus diagnosed on 2022. Her last EGD was in 2022. Recommended EGD every [address] abdomen and pelvis unremarkable, then may need EGD and GI evaluation #Chronic conditions HTN: Lisinopril recently held in the outpatient because of hypotension frequently. Continue Monitor BP HLD: Continue Rosuvastatin 5mg PO HS Hypothyroidism: Continue Levothyroxine 75 mcg daily Migraine: receiving Botox injection for prevention of chronic migraine H/O bladder infections, interstitial cystitis, and bladder nerve damage: Continue Tamsulosin Puodendal neuralgia: Continue gabapentin #Code: Full #Dispo: Med/Surg #DVT prophylaxis: Lovenox History of Present Illness Chief Complaint: Chest Pain Primary Care Provider: Na Faria MD This is a 69-year-old female with PMHx of HTN, HLD, Hypothyroidism, Pugh Esophagus(diagnosed on 2022), Migraine, recent surgery for carpal tunnel syndrome that presents to the emergency department via private vehicle with complaints of "back and epigastric pain" the patient states that she began with left middle back pain this past Monday. She denies any trauma or injury. No exertional activities. She notes then she began with left back pain radiating into the epigastric region . She also notes some intermittent difficulty breathing/chest tightness. She notes that the pain in the epigastric region has been present for the entire day today. She does note a history of GI issues. She did undergo cardiac catheterization at this facility on 06/28/2019. At that time patient was found to have mild to moderate nonobstructive coronary artery disease with 40 to 50% proximal ramus as well as 20 to 30% proximal first diagonal. Normal intracardiac filling pressures were noted at that time. The patient does furnish a CT scan report of the abdomen/pelvis dated from earlier this month on the second that she notes that she notes was obtained secondary to some constipation. Scan was overall okay at that time other than she notes did note a trace pericardial effusion.Denies any nausea, vomiting diarrhea or fever. She has chronic constipation issues. Her last EGD was on 2022 and was recommended to get EGD done every 3 years She consumes alcohol socially and is non smoker. She is retired now and lives with her She is full code Allergies Allergy/AdvReac Type Severity Reaction Status Date / Time aspirin AdvReac Mild SEVERE Verified 07/09/24 06:25 STOMACH PAIN cephalexin AdvReac Mild GI SYMPTOMS Verified 07/09/24 06:25 codeine AdvReac Mild SEVERE Verified 07/09/24 06:25 STOMACH PAIN NSAIDS (Non-Steroidal AdvReac Mild STOMACH Verified 07/09/24 06:25 Anti-Inflamma PAIN Home Medications Medication Instructions Recorded Confirmed Type calcium carbonate 1,000 1 tab PO BID PRN Stomach Upset 06/28/19 01/29/25 History mg-simethicone 60 mg chewable tablet (Maalox Advanced) docusate sodium 100 mg capsule 100 mg PO HS 06/28/19 01/29/25 History levothyroxine 75 mcg tablet 75 mcg PO DAILYBB 11/23/20 01/29/25 History tamsulosin 0.4 mg capsule 0.4 mg PO QAM 06/25/24 01/29/25 History baclofen 10 mg tablet 10 mg PO BID PRN muscle spasms 01/29/25 01/29/25 History baclofen 10 mg tablet 10 mg PO HS 01/29/25 01/29/25 History buspirone 15 mg tablet 15 mg PO BID 01/29/25 01/29/25 History cetirizine 10 mg tablet (Zyrtec) 10 mg PO HS 01/29/25 01/29/25 History famotidine 20 mg tablet 20 mg PO BID 01/29/25 01/29/25 History gabapentin 100 mg capsule 100 mg PO TID PRN back/nerve pain 01/29/25 01/29/25 History gabapentin 600 mg tablet 1,200 mg PO HS 01/29/25 01/29/25 History gabapentin 600 mg tablet 600 mg PO QAM 01/29/25 01/29/25 History hyoscyamine sulfate 0.125 mg tablet 0.125 mg PO TID PRN Spasms 01/29/25 01/29/25 History lubiprostone 24 mcg capsule 24 mcg PO BID 01/29/25 01/29/25 History pantoprazole 40 mg tablet,delayed 40 mg PO BID 01/29/25 01/29/25 History release rosuvastatin 10 mg tablet 5 mg PO HS 01/29/25 01/29/25 History sucralfate 1 gram tablet 1 g PO TID PRN stomach pain 01/29/25 01/29/25 History tramadol 50 mg tablet 50 - 100 mg PO Q6 PRN Pain 01/29/25 01/29/25 History trazodone 100 mg tablet 200 mg PO HS 01/29/25 01/29/25 History Past Med/Surg History Problem List (Updated 01/29/25 @ 22:37 by Dagoberto Varela PA-C) Upper back pain on left side (Acute) Left-sided chest pain (Acute) Elevated AFP Ovarian mass, right Encounter for pre-operative examination Right lumbar radiculopathy Hypertension (Acute) Atypical chest pain (Acute) Hyperlipidemia (Acute) Chest pain (Acute) Substernal chest pain (Acute) Precordial chest pain (Acute) Lumbago (Chronic) Hyperlipidemia (Chronic) Esophageal reflux (Chronic) Chondromalacia patellae (Chronic) Benign hypertension (Chronic) Pugh esophagus (Chronic) Fibromyalgia (Chronic) Aortic regurgitation (Chronic) GERD (gastroesophageal reflux disease) (Chronic) Migraine (Chronic) Medical History (Updated 01/29/25 @ 22:37 by Dagoberto Varela PA-C) Hx of chest pain Carpal tunnel syndrome on both sides Deviated nasal septum "slight" Incomplete bladder emptying follows with urology in janeth Aortic regurgitation follows with fragin History of asthma no longer uses inhaler - had "night time asthma"- has resolved Hx of migraines gets botox and no longer gets headaches Medical marijuana use uses thc cream on painful hands Anxiety and depression Spinal stenosis Peripheral neuropathy Chronic back pain Barretts esophagus Fibromyalgia History of stomach ulcers GERD (gastroesophageal reflux disease) IBS (irritable bowel syndrome) Hypothyroidism Hyperlipidemia Hypertension Surgical History Hx of cystoscopy Hx of arthroscopy of right knee Hx of lumbar discectomy (1996) History of tonsillectomy and adenoidectomy Status post epidural steroid injection multiple Family history of reaction to anesthesia BROTHER>NAUSEA History of dilatation and curettage History of bilateral tubal ligation History of esophagogastroduodenoscopy (EGD) History of laparoscopy History of colonoscopy History of hysterectomy RYLAN History of tooth extraction History of cholecystectomy History of appendectomy History of section Fusion of spine (2002) L4, L5 (per pt., failed) History of cardiac cath (06/2019) 06/2019 [facility] - no stents - follows with fragin (~ 6 months) > 10 YEARS AGO - [facility] - - NO STENTS/ANGIOPLASTY - 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 Family History Uncle Colon cancer Sister Breast cancer Aunt Breast cancer Family/Other Prostate cancer maternal cousin Denies family history of Ovarian cancer Social History Smoking Status: Never smoker Tobacco Type: Cigarettes Second Hand Exposure: No; Do You Dip or Chew Tobacco: No; Hx Alcohol Use: Yes Alcohol type: beer and hard liquor Hx Substance Use: Yes Last Used Substance Other:: med marijuana card Substance Use Type Other:: MEDICAL MARIJUANA CARD, RARE USE OF Preferred Language: Hebrew Communication Ability: Effective Zipper Trimmer Hand Required: No Beliefs That Will Affect Care: None Current Living Situation: Spouse Feels Safe at Home: Yes Assistive Devices: Glasses Review of Systems Review of Systems: As per HPI Physical Exam Physical Exam: Constitutional: Well appearing, No acute distress, PILCCOD: Negative HEENT: Atraumatic, Normocephalic, No conjunctival injection CVS: S1 S2 no murmur, Regular Rhythm, no LE edema Respiratory: BL equal air entry with NVBS. No rhonchi, wheezes, or crackles. No increased work of breathing GI: Severe tenderness in epigastric region ; soft MSK: No gross deformities noted Skin: Warm, Dry, No rashes Neuro: Alert, Oriented to TPP, No Focal deficit Psych: Mood and Affect congruent, Cooperative on exam Results & Data Results & Data Vital Signs (Past 12 Hours) Vital Signs Temp Pulse Pulse Resp BP BP Pulse Ox 01/29/25 20:18 58 L 16 155/71 H 99 01/29/25 19:41 58 L 19 137/85 99 01/29/25 18:33 71 12 97 01/29/25 18:00 155/74 H 98 01/29/25 17:50 68 01/29/25 17:45 73 18 175/84 H 100 01/29/25 17:45 01/29/25 14:49 71 18 100 01/29/25 14:43 36.7 C 71 20 173/84 H 100 O2 Del Method 01/29/25 20:18 Room Air 01/29/25 19:41 Room Air 01/29/25 18:33 01/29/25 18:00 01/29/25 17:50 01/29/25 17:45 Room Air 01/29/25 17:45 Room Air 01/29/25 14:49 Room Air 01/29/25 14:43 Room Air Supervising Physician Co-Signing Physician Notes patient seen examined, chart reviewed, case discussed with Dr. Horn and I agree with the assessment and plan as documented above. In brief, patient is a 69-year-old female with history of hypertension, hyperlipidemia, hypothyroidism and Pugh's esophagus diagnosed in 2022 presenting with severe epigastric abdominal pain. Patient's pain started several days ago with back pain and some tightness in her chest. Over the last several days she has had increased and epigastric discomfort. She denies dysphagia, odynophagia, melena, hematochezia, weight loss. She is under a lot of personal stress as her son who lives in [place] is currently going through a divorce. Patient reports that she is very anxious at baseline and even more so with these recent developments. No cardiac history On physical exam patient is resting in bed, moderate discomfort, anxious in appearance Skinwarm, dry, intact HEENTmoist mucous membranes, neck supple Heart+ S1, S2, regular, no murmur/rub/gallops LungsCTA Abdomennormoactive bowel sounds, soft, diffusely tender in the epigastric region with some voluntary guarding, no rebound, no distention Extremitieswarm, well-perfused Labs and images reviewed. Normal CBC, coag panel, CMP Troponin x 2 within normal limits Assessment/Plan - suspect GI etiology of discomfort -Pepcid and Protonix IV BID -Awaiting CT Abdomen results -Remainder as above
[2025-01-29 21:50] LABS: Lipase 19 U/L (11-82)
[2025-01-29] MEDS: OPTIRAY 320 100ml IV ONE (22:34)
[2025-01-29] MEDS: busPIRone 15 MG TAB PO STA (23:07)
[2025-01-29] MEDS: BACLOFEN 10 MG TAB PO STA (23:15)
[2025-01-29] MEDS: GABAPENTIN 600 MG TAB PO STA (23:15)
[2025-01-29] MEDS: CETIRIZINE HCL 10 MG TABLET PO STA (23:15)
[2025-01-29] MEDS: DOCUSATE SODIUM 100 MG CAP PO STA (23:15)
[2025-01-29] MEDS: PANTOprazole 40 MG/10 ML SYR IV STA (23:15)
[2025-01-30] MEDS: ACETAMINOPHEN 1,000 MG/100 ML VIAL IV STA
[2025-01-30] MEDS ORDERED: ALUMINUM/MAGNESIUM SUSP 30 ML UDC PO PRN (01:16)
[2025-01-30] MEDS ORDERED: ONDANSETRON INJ 2 MG/ML 2 ML VIAL IV PRN (01:16)
[2025-01-30] MEDS ORDERED: MAGNESIUM HYDROXIDE SUSP 30 ML UDC PO PRN (01:16)
[2025-01-30] MEDS ORDERED: MELATONIN 3 MG TAB PO PRN (01:16)
[2025-01-30] MEDS ORDERED: POLYETHYLENE (MIRALAX) 17 GM PACK PO PRN (01:16)
[2025-01-30] MEDS ORDERED: GABAPENTIN 100 MG CAP PO PRN (01:16)
--- NOTE | 2025-01-30 01:17 | Billing Data ---
Date of Service January 29, 2025 Coding Level of Care Code 30585 INT INP/OBS CARE
--- NOTE | 2025-01-30 01:47 | CT Scan Report ---
Exam(s): CT ABDOMEN + PELVIS W/WO Contrast IV Amt: 93ml opti 320 EXAM: CT Abdomen and Pelvis Without and With Intravenous Contrast CLINICAL HISTORY: Reason for exam: epigastric tendernss. TECHNIQUE: Axial computed tomography images of the abdomen and pelvis without and with intravenous contrast. CTDI is 20.85 mGy and DLP is 2083.93 mGy-cm. Automated exposure control was utilized for the study. A dose lowering technique was utilized adhering to the principles of ALARA. CONTRAST: Patient received 93ml opti 320 of IV contrast COMPARISON: CT abdomen/pelvis: 05/27/2024 FINDINGS: Lung bases: Bibasilar small linear atelectatic changes are seen. No mass. No consolidation. Small/trace pericardial fluid. Coronary arterial calcified stenosis ABDOMEN: Liver: Unremarkable. No mass. Gallbladder and bile ducts: The gallbladder is surgically absent.. There is mild/moderate intrahepatic/extrahepatic ductal dilatation, CBD 14.5 mm in diameter, likely a postcholecystectomy ductal ectasia versus distal CBD stricture/obstruction Pancreas: Moderate to severe diffuse pancreatic atrophy. No contour deforming mass.. No ductal dilation. Spleen: Unremarkable. No splenomegaly. Adrenals: Unremarkable. No mass. Kidneys and ureters: Unremarkable. No solid mass. No obstructing stones. No hydronephrosis. Stomach and bowel: Unremarkable stomach and small bowel. A redundant gas-filled up to 7 cm dilated sigmoid colon extends into the upper/mid abdominal quadrant (series 500 image 29). Moderately large amount of stool is seen throughout the rest of the colon. No significant mucosal thickening. PELVIS: Appendix: Possibly prior appendectomy with metallic surgical clips along the base of the cecum. Bladder: Mild uniform bladder wall thickening.. No mass. No stones. Reproductive: Prior hysterectomy. ABDOMEN and PELVIS: Intraperitoneal space: No free air. No significant fluid collection. Bones/joints: No acute fracture. No dislocation. At L4-L5 moderate advanced degenerative spondylitic changes seen.. Lumbosacral facet osteoarthropathy. Soft tissues: Unremarkable. Vasculature: Unremarkable. No abdominal aortic aneurysm. Lymph nodes: Unremarkable. No enlarged lymph nodes.. IMPRESSION: A redundant gas-filled up to 7 cm dilated sigmoid colon is seen from pelvis to the upper/mid abdominal quadrant, concerning for a mild sigmoid volvulus. Recommend clinical correlation/follow-up. Moderately large amount of stool seen in the rest of the colon. No bowel obstruction Prior cholecystectomy. Mild/moderately dilated intrahepatic/extra hepatic bile duct. No pancreatic ductal dilatation. Additional findings as above . Electronically signed by: Shae Mancini MD, KETURAH 01/30/25 01:46 AM
[2025-01-30] MEDS: PANTOprazole 40 MG/10 ML SYR IV ONE (01:57)
[2025-01-30] MEDS: ROSUVASTATIN CALCIUM 5 MG TAB PO STA (01:57)
[2025-01-30] MEDS: LACTATED RINGER'S 1,000 ML IV SCH (03:14)
[2025-01-30] MEDS: MoRPHine SULFATE 2 MG/ML CARP IV PRN (05:37)
[2025-01-30] MEDS: LEVOTHYROXINE SODIUM 75 MCG TABLET PO SCH (05:38)
[2025-01-30] MEDS: SUCRALFATE 1 GM TAB PO PRN (05:53)
--- NOTE | 2025-01-30 06:14 | Surgery Consultation ---
Date of Consultation January 30, 2025 Assessment & Plan (1) Epigastric abdominal pain: 69-year-old woman presents with worsening of her typical epigastric pain radiating to her back. CT findings include possible mild sigmoid volvulus with tortuous colon. Her last endoscopies were over 2 years ago. No surgical intervention is necessary at this time. She does not have any evidence of a bowel obstruction or full torsion of the colon. I would recommend GI evaluation for upper endoscopy and possible colonoscopy to assess the colon. We will await the GI evaluation for further recommendations. Once again, no surgical intervention required at this time. History of Present Illness Reason for Consultation: Possible sigmoid volvulus Requesting Physician: Charlotte Snow DO Attending Physician: Gail Snow DO History of Present Illness 69-year-old woman with a history of Pugh's esophagus presents with worsening pain in her epigastric region radiating to her back. She states that the epigastric pain has been present many times in the past however the back pain is new. She denies nausea or vomiting. She was seen at the [facility] few weeks ago for constipation, however she states her bowel movements since then have been normal for her. She is passing gas and having bowel movements. She denies fevers and chills. CT scan demonstrates a very tortuous sigmoid colon with the possibility of a mild volvulus. There is no evidence of bowel obstruction or distended colon. She last had an upper and lower endoscopy over 2 years ago. Allergies Allergy/AdvReac Type Severity Reaction Status Date / Time aspirin AdvReac Mild SEVERE Verified 07/09/24 06:25 STOMACH PAIN cephalexin AdvReac Mild GI SYMPTOMS Verified 07/09/24 06:25 codeine AdvReac Mild SEVERE Verified 07/09/24 06:25 STOMACH PAIN NSAIDS (Non-Steroidal AdvReac Mild STOMACH Verified 07/09/24 06:25 Anti-Inflamma PAIN Home Medications Medication Instructions Recorded Confirmed Type calcium carbonate 1,000 1 tab PO BID PRN Stomach Upset 06/28/19 01/29/25 History mg-simethicone 60 mg chewable tablet (Maalox Advanced) docusate sodium 100 mg capsule 100 mg PO HS 06/28/19 01/29/25 History levothyroxine 75 mcg tablet 75 mcg PO DAILYBB 11/23/20 01/29/25 History tamsulosin 0.4 mg capsule 0.4 mg PO QAM 06/25/24 01/29/25 History baclofen 10 mg tablet 10 mg PO BID PRN muscle spasms 01/29/25 01/29/25 History baclofen 10 mg tablet 10 mg PO HS 01/29/25 01/29/25 History buspirone 15 mg tablet 15 mg PO BID 01/29/25 01/29/25 History cetirizine 10 mg tablet (Zyrtec) 10 mg PO HS 01/29/25 01/29/25 History famotidine 20 mg tablet 20 mg PO BID 01/29/25 01/29/25 History gabapentin 100 mg capsule 100 mg PO TID PRN back/nerve pain 01/29/25 01/29/25 History gabapentin 600 mg tablet 1,200 mg PO HS 01/29/25 01/29/25 History gabapentin 600 mg tablet 600 mg PO QAM 01/29/25 01/29/25 History hyoscyamine sulfate 0.125 mg tablet 0.125 mg PO TID PRN Spasms 01/29/25 01/29/25 History lubiprostone 24 mcg capsule 24 mcg PO BID 01/29/25 01/29/25 History pantoprazole 40 mg tablet,delayed 40 mg PO BID 01/29/25 01/29/25 History release rosuvastatin 10 mg tablet 5 mg PO HS 01/29/25 01/29/25 History sucralfate 1 gram tablet 1 g PO TID PRN stomach pain 01/29/25 01/29/25 History tramadol 50 mg tablet 50 - 100 mg PO Q6 PRN Pain 01/29/25 01/29/25 History trazodone 100 mg tablet 200 mg PO HS 01/29/25 01/29/25 History Patient History Medical History Hx of chest pain Carpal tunnel syndrome on both sides Deviated nasal septum "slight" Incomplete bladder emptying follows with urology in [place] Aortic regurgitation follows with fragin History of asthma no longer uses inhaler - had "night time asthma"- has resolved Hx of migraines gets botox and no longer gets headaches Medical marijuana use uses thc cream on painful hands Anxiety and depression Spinal stenosis Peripheral neuropathy Chronic back pain Barretts esophagus Fibromyalgia History of stomach ulcers GERD (gastroesophageal reflux disease) IBS (irritable bowel syndrome) Hypothyroidism Hyperlipidemia Hypertension Surgical History Hx of cystoscopy Hx of arthroscopy of right knee Hx of lumbar discectomy (1996) History of tonsillectomy and adenoidectomy Status post epidural steroid injection multiple Family history of reaction to anesthesia BROTHER>NAUSEA History of dilatation and curettage History of bilateral tubal ligation History of esophagogastroduodenoscopy (EGD) History of laparoscopy History of colonoscopy History of hysterectomy RYLAN History of tooth extraction History of cholecystectomy History of appendectomy History of section Fusion of spine (2002) L4, L5 (per pt., failed) History of cardiac cath (06/2019) 06/2019 [facility] - no stents - follows with fragin (~ 6 months) > 10 YEARS AGO - [facility] - - NO STENTS/ANGIOPLASTY - 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 Family History Uncle Colon cancer Sister Breast cancer Aunt Breast cancer Family/Other Prostate cancer maternal cousin Denies family history of Ovarian cancer Social History Smoking Status: Never smoker Tobacco Type: Cigarettes Second Hand Exposure: No; Do You Dip or Chew Tobacco: No; Hx Alcohol Use: Yes Alcohol type: beer and hard liquor Hx Substance Use: No Preferred Language: Egyptian Communication Ability: Effective Cutch Cleaner Required: No Beliefs That Will Affect Care: None Current Living Situation: Spouse Feels Safe at Home: Yes Safety Concerns: Feels Safe At This Time Assistive Devices: Other Assistive Devices Comment: READING GLASSES Review of Systems Review of Systems: All systems reviewed & are unremarkable except as noted in HPI & below Physical Exam Constitutional: WD/WN, vitals as above Eyes: PERRL, conjunctivae normal, anicteric sclerae Neck: trachea midline, no thyromegaly Respiratory: normal respiratory effort; no respiratory distress and no labored breathing Cardiovascular: Rate/Rhythm: regular rate and regular rhythm Gastrointestinal (Abdomen): Inspection/Auscultation: abdomen normal to inspection; abdomen not distended Percussion/Palpation: + abdomen tender ( Epigastric region) and abdomen soft; no guarding and abdomen not rigid Skin: no rashes, warm and dry Psychiatric: A+Ox3, euthymic affect Results & Data Vital Signs (Past 12 Hours) Vital Signs Temp Pulse Pulse Pulse Resp BP BP 01/30/25 01:00 36.5 C 60 18 149/76 H 01/30/25 00:56 01/30/25 00:42 63 21 01/30/25 00:30 123/65 01/30/25 00:03 62 17 01/30/25 00:00 137/67 01/30/25 00:00 137/67 01/29/25 23:39 69 14 01/29/25 23:30 115/89 01/29/25 23:30 74 20 01/29/25 23:09 69 21 01/29/25 23:05 142/79 H 01/29/25 23:05 142/79 H 01/29/25 23:00 67 17 142/79 H 01/29/25 20:48 65 22 01/29/25 20:30 62 23 01/29/25 20:30 164/81 H 01/29/25 20:30 164/81 H 01/29/25 20:30 164/81 H 01/29/25 20:18 166/74 H 01/29/25 20:18 58 L 16 155/71 H 01/29/25 20:12 63 14 01/29/25 20:00 155/71 H 01/29/25 20:00 155/71 H 01/29/25 20:00 66 22 01/29/25 19:41 58 L 19 137/85 01/29/25 19:36 59 L 15 01/29/25 19:06 60 15 01/29/25 19:06 150/81 H 01/29/25 18:33 71 12 Pulse Ox O2 Del Method 01/30/25 01:00 98 Room Air 01/30/25 00:56 Room Air 01/30/25 00:42 96 01/30/25 00:30 01/30/25 00:03 96 01/30/25 00:00 01/30/25 00:00 01/29/25 23:39 95 01/29/25 23:30 01/29/25 23:30 96 01/29/25 23:09 97 01/29/25 23:05 01/29/25 23:05 01/29/25 23:00 99 Room Air 01/29/25 20:48 99 01/29/25 20:30 100 01/29/25 20:30 01/29/25 20:30 01/29/25 20:30 01/29/25 20:18 01/29/25 20:18 99 Room Air 01/29/25 20:12 99 01/29/25 20:00 01/29/25 20:00 01/29/25 20:00 98 01/29/25 19:41 99 Room Air 01/29/25 19:36 98 01/29/25 19:06 98 01/29/25 19:06 01/29/25 18:33 97 Laboratory Results 01/29/25 01/29/25 Range/Units 18:08 14:58 WBC 6.41 (4.8-10.8) K/ul RBC 4.71 (4.20-5.40) M/uL Hgb 14.0 (12.0-16.0) g/dl Hct 40.5 (37.0-47.0) % MCV 86.0 (80.0-100.0) fL MCH 29.7 (25.0-34.0) pg MCHC 34.6 (32.0-36.0) g/dL RDW Std Deviation 42.3 (36.4-46.3) fL RDW Coeff of Melani 13.5 (11.5-14.5) % Plt Count 260 (130-400) K/uL MPV 10.4 (9.4-12.4) fL Immature Gran % (Auto) 0.2 % Neut % (Auto) 64.1 % Lymph % (Auto) 26.5 % [place] % (Auto) 7.2 % Eos % (Auto) 1.4 % Baso % (Auto) 0.6 % Neut # (Auto) 4.11 (1.40-6.50) K/uL Lymph # (Auto) 1.70 (1.20-3.40) K/uL [place] # (Auto) 0.46 (0.11-0.59) K/uL Eos # (Auto) 0.09 (0.00-0.50) K/uL Baso # (Auto) 0.04 (0.00-0.20) K/uL Immature Gran # (Auto) 0.01 (0.01-0.20) K/uL PT 10.6 (9.0-12.0) Seconds INR 1.0 (0.9-1.1) APTT 26 (21-31) Seconds PTT Ratio 1.0 Sodium 138 (136-145) mmol/L Potassium 3.7 (3.5-5.1) mmol/L Chloride 103 (98-107) mmol/L Carbon Dioxide 27 (21-32) mmol/L Anion Gap 8 (3-11) BUN 9 (6-23) mg/dl Creatinine 0.84 (0.6-1.2) mg/dl Est Cr Clr Drug Dosing 66.9 ml/min eGFR 75.65 BUN/Creatinine Ratio 10.7 (10-20) Glucose 95 (70-99(Fasting)) mg/dl Calcium 9.5 (8.6-10.3) mg/dl Total Bilirubin 0.5 (0.2-1.0) mg/dl AST 21 (13-39) U/L ALT 17 (7-52) U/L Alkaline Phosphatase 71 (34-104) U/L Troponin I High Sens < 2.3 < 2.3 (0-14) pg/ml Total Protein 7.2 (6.0-8.3) gm/dl Albumin 4.5 (3.4-5.0) gm/dl Globulin 2.7 (2.5-4.0) gm/dl Albumin/Globulin Ratio 1.7 (0.9-2) Lipase 19 (11-82) U/L Diagnostic Findings xam(s): CT ABDOMEN + PELVIS W/WO Contrast IV Amt: 93ml opti 320 EXAM: CT Abdomen and Pelvis Without and With Intravenous Contrast CLINICAL HISTORY: Reason for exam: epigastric tendernss. TECHNIQUE: Axial computed tomography images of the abdomen and pelvis without and with intravenous contrast. CTDI is 20.85 mGy and DLP is 2083.93 mGy-cm. Automated exposure control was utilized for the study. A dose lowering technique was utilized adhering to the principles of ALARA. CONTRAST: Patient received 93ml opti 320 of IV contrast COMPARISON: CT abdomen/pelvis: 05/27/2024 FINDINGS: Lung bases: Bibasilar small linear atelectatic changes are seen. No mass. No consolidation. Small/trace pericardial fluid. Coronary arterial calcified stenosis ABDOMEN: Liver: Unremarkable. No mass. Gallbladder and bile ducts: The gallbladder is surgically absent.. There is mild/moderate intrahepatic/extrahepatic ductal dilatation, CBD 14.5 mm in diameter, likely a postcholecystectomy ductal ectasia versus distal CBD stricture/obstruction Pancreas: Moderate to severe diffuse pancreatic atrophy. No contour deforming mass.. No ductal dilation. Spleen: Unremarkable. No splenomegaly. Adrenals: Unremarkable. No mass. Kidneys and ureters: Unremarkable. No solid mass. No obstructing stones. No hydronephrosis. Stomach and bowel: Unremarkable stomach and small bowel. A redundant gas-filled up to 7 cm dilated sigmoid colon extends into the upper/mid abdominal quadrant (series 500 image 29). Moderately large amount of stool is seen throughout the rest of the colon. No significant mucosal thickening. PELVIS: Appendix: Possibly prior appendectomy with metallic surgical clips along the base of the cecum. Bladder: Mild uniform bladder wall thickening.. No mass. No stones. Reproductive: Prior hysterectomy. ABDOMEN and PELVIS: Intraperitoneal space: No free air. No significant fluid collection. Bones/joints: No acute fracture. No dislocation. At L4-L5 moderate advanced degenerative spondylitic changes seen.. Lumbosacral facet osteoarthropathy. Soft tissues: Unremarkable. Vasculature: Unremarkable. No abdominal aortic aneurysm. Lymph nodes: Unremarkable. No enlarged lymph nodes.. IMPRESSION: A redundant gas-filled up to 7 cm dilated sigmoid colon is seen from pelvis to the upper/mid abdominal quadrant, concerning for a mild sigmoid volvulus. Recommend clinical correlation/follow-up. Moderately large amount of stool seen in the rest of the colon. No bowel obstruction Prior cholecystectomy. Mild/moderately dilated intrahepatic/extra hepatic bile duct. No pancreatic ductal dilatation. Additional findings as above . Electronically signed by: Shae Mancini MD, LYNNR 01/30/25 01:46 AM Dictated: 01/30/25 0146 Transcribed: 01/30/25 0146
[2025-01-30 06:32] LABS: Hematocrit (blood only) 33.4 % (37.0-47.0); Hemoglobin 12.0 g/dl (12.0-16.0); Mean Corpuscular Hemoglobin 30.9 pg (25.0-34.0); Mean Corpuscular Volume 86.1 fL (80.0-100.0); Platelet Count 220 K/uL (130-400); RDW Standard Deviation 42.4 fL (36.4-46.3); Red Blood Count 3.88 M/uL (4.20-5.40); White Blood Count 4.81 K/ul (4.8-10.8)
[2025-01-30 07:19] LABS: Alanine Aminotransferase 26.0 U/L (7-52); Alkaline Phosphatase 60.0 U/L (34-104); Anion Gap 6.0 (3-11); Bilirubin,Total 0.5 mg/dl (0.2-1.0); Blood Urea Nitrogen 9.0 mg/dl (6-23); Calcium 8.7 mg/dl (8.6-10.3); Carbon Dioxide 29.0 mmol/L (21-32); Chloride 106.0 mmol/L (98-107); Creatinine Clr Calc Pharmacy 61.5 ml/min; Glucose 83.0 mg/dl (70-99(Fasting)); Potassium 3.8 mmol/L (3.5-5.1); Sodium 141.0 mmol/L (136-145); Total Protein 5.7 gm/dl (6.0-8.3)
[2025-01-30] MEDS: ACETAMINOPHEN 1,000 MG/100 ML VIAL IV SCH (07:50)
[2025-01-30] MEDS: GABAPENTIN 600 MG TAB PO SCH ×2 (07:58→21:39)
[2025-01-30] MEDS: TAMSULOSIN HCL 0.4 MG CAP PO SCH (07:58)
[2025-01-30] MEDS: LUBIPROSTONE 8 MCG CAP PO SCH (07:58)
[2025-01-30] MEDS: busPIRone 15 MG TAB PO SCH (08:00)
[2025-01-30] MEDS: HYOSCYAMINE SULFATE 0.125 MG TAB PO PRN (08:00)
[2025-01-30] MEDS: FAMOTIDINE 20MG IV PUSH 20 MG/5 ML SYR IV SCH (10:10)
[2025-01-30] MEDS: POLYETHYLENE (MIRALAX) 17 GM PACK PO SCH (10:10)
--- NOTE | 2025-01-30 10:11 | XRay Report ---
XR abdomen 2V w PA chest CLINICAL HISTORY: sigmoid volvulus?? COMPARISON STUDY: 01/29/2025 FINDINGS: CHEST: Heart size and pulmonary vasculature are normal. No consolidation or pleural effusion. No pneu mothorax. ABDOMEN: Stable right upper quadrant surgical clips. Urinary bladder is mildly distended with contras t. There is distention of the sigmoid colon measuring up to 7 cm diameter with inverted U morphology, stable. No other bowel distention seen. IMPRESSION: 1. No acute findings of the chest. 2. Stable sigmoid distention. ACT 112: Negative or not required by law. Electronically signed by: Celestine Cotto M.D. 01/30/2025 10:09 AM
[2025-01-30] MEDS: PANTOprazole 40 MG/10 ML SYR IV SCH (10:15)
--- NOTE | 2025-01-30 14:24 | Gastrointestinal Consultation ---
Date of Consultation January 30, 2025 Assessment & Plan (1) Epigastric abdominal pain: (2) Abnormal CT scan, sigmoid colon: (3) Chronic constipation: Plan Discussed with Dr. Bautista who advised on plan. Patient follows with [facility] as an outpatient and has been seen in [facility]. -Liquid diet -Bowel prep with 238 gm Miralax + 64 oz Gatorade to encourage improvement of her severe constipation/sigmoid distention -Continue PPI -NPO after midnight for EGD to evaluate epigastric pain Patient is unsure she wishes to proceed with this plan and notes she may opt to go home instead. Orders are placed should she decide to pursue these GI recommendations. Supervising Physician Co-Signing Physician Notes Patient with longstanding bowel problems. She takes Amitiza twice a day and a stool softener. She was in [facility] recently with obstipation. States she had a CT scan was able to move her bowels after that and a molasses enema. States she passed a very large her difficult bowel movement. She has noted episodes of abdominal distention followed by epigastric discomfort and left upper quadrant pain. Patient has history of ulcers though she is on twice daily PPI therapy ulcer seems less likely. There is a history of Pugh's. She is due this July for Pugh's surveillance. Imaging does suggest potential partial sigmoid volvulus and excess stool. At this point I am not clear that there is significant upper GI pathology. It is possible that the epigastric and left upper quadrant pain plus distention are colonic in nature. Plan EGD flex sig or colon tomorrow depending on adequacy of the preparation. Check a KUB tomorrow. On review the patient is also taking Colestid and trazodone. Both of these will just aggravate her constipation and should be discontinued. I also be inclined to consider trial of Linzess or Trulance over Amitiza. History of Present Illness Reason for Consultation: epigastric pain, surgery requesting Attending Physician: Hong Tran MD History of Present Illness Patient seen in [facility] for [facility]. Patient is a 69 yo female with a history of Pugh's Esophagus and chronic constipation who presented to the ED with worsening epigastric pain over several days. She notes that her epigastric pain radiated through her back. She notes the pain is constant. It is not worsened by anything in particular. She has chronic constipation issues for which she sees [facility]. She takes Amitiza. She had an abdominal CT scan that indicated: A redundant gas-filled up to 7 cm dilated sigmoid colon is seen from pelvis to the upper/mid abdominal quadrant, concerning for a mild sigmoid volvulus. Recommend clinical correlation/follow-up. Moderately large amount of stool seen in the rest of the colon. No bowel obstruction Prior cholecystectomy. Mild/moderately dilated intrahepatic/extra hepatic bile duct. No pancreatic ductal dilatation. A follow-up abdominal xray showed: IMPRESSION: 1. No acute findings of the chest. 2. Stable sigmoid distention. She saw general surgery who advised GI consult. She last had an EGD in 2022. She has one every 3 years due to her Pugh's Esophagus. I do not have copies of her last colonoscopy. Allergies Allergy/AdvReac Type Severity Reaction Status Date / Time aspirin AdvReac Mild SEVERE Verified 07/09/24 06:25 STOMACH PAIN cephalexin AdvReac Mild GI SYMPTOMS Verified 07/09/24 06:25 codeine AdvReac Mild SEVERE Verified 07/09/24 06:25 STOMACH PAIN NSAIDS (Non-Steroidal AdvReac Mild STOMACH Verified 07/09/24 06:25 Anti-Inflamma PAIN Home Medications Medication Instructions Recorded Confirmed Type calcium carbonate 1,000 1 tab PO BID PRN Stomach Upset 06/28/19 01/29/25 History mg-simethicone 60 mg chewable tablet (Maalox Advanced) docusate sodium 100 mg capsule 100 mg PO HS 06/28/19 01/29/25 History levothyroxine 75 mcg tablet 75 mcg PO DAILYBB 11/23/20 01/29/25 History tamsulosin 0.4 mg capsule 0.4 mg PO QAM 06/25/24 01/29/25 History baclofen 10 mg tablet 10 mg PO BID PRN muscle spasms 01/29/25 01/29/25 History baclofen 10 mg tablet 10 mg PO HS 01/29/25 01/29/25 History buspirone 15 mg tablet 15 mg PO BID 01/29/25 01/29/25 History cetirizine 10 mg tablet (Zyrtec) 10 mg PO HS 01/29/25 01/29/25 History famotidine 20 mg tablet 20 mg PO BID 01/29/25 01/29/25 History gabapentin 100 mg capsule 100 mg PO TID PRN back/nerve pain 01/29/25 01/29/25 History gabapentin 600 mg tablet 1,200 mg PO HS 01/29/25 01/29/25 History gabapentin 600 mg tablet 600 mg PO QAM 01/29/25 01/29/25 History hyoscyamine sulfate 0.125 mg tablet 0.125 mg PO TID PRN Spasms 01/29/25 01/29/25 History lubiprostone 24 mcg capsule 24 mcg PO BID 01/29/25 01/29/25 History pantoprazole 40 mg tablet,delayed 40 mg PO BID 01/29/25 01/29/25 History release rosuvastatin 10 mg tablet 5 mg PO HS 01/29/25 01/29/25 History sucralfate 1 gram tablet 1 g PO TID PRN stomach pain 01/29/25 01/29/25 History tramadol 50 mg tablet 50 - 100 mg PO Q6 PRN Pain 01/29/25 01/29/25 History trazodone 100 mg tablet 200 mg PO HS 01/29/25 01/29/25 History Patient History Medical History Hx of chest pain Carpal tunnel syndrome on both sides Deviated nasal septum "slight" Incomplete bladder emptying follows with urology in [place] Aortic regurgitation follows with fragin History of asthma no longer uses inhaler - had "night time asthma"- has resolved Hx of migraines gets botox and no longer gets headaches Medical marijuana use uses thc cream on painful hands Anxiety and depression Spinal stenosis Peripheral neuropathy Chronic back pain Barretts esophagus Fibromyalgia History of stomach ulcers GERD (gastroesophageal reflux disease) IBS (irritable bowel syndrome) Hypothyroidism Hyperlipidemia Hypertension Surgical History Hx of cystoscopy Hx of arthroscopy of right knee Hx of lumbar discectomy (1996) History of tonsillectomy and adenoidectomy Status post epidural steroid injection multiple Family history of reaction to anesthesia BROTHER>NAUSEA History of dilatation and curettage History of bilateral tubal ligation History of esophagogastroduodenoscopy (EGD) History of laparoscopy History of colonoscopy History of hysterectomy RYLAN History of tooth extraction History of cholecystectomy History of appendectomy History of section Fusion of spine (2002) L4, L5 (per pt., failed) History of cardiac cath (06/2019) 06/2019 [facility] - no stents - follows with fragin (~ 6 months) > 10 YEARS AGO - [facility] - - NO STENTS/ANGIOPLASTY - 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 Family History Uncle Colon cancer Sister Breast cancer Aunt Breast cancer Family/Other Prostate cancer maternal cousin Denies family history of Ovarian cancer Social History Smoking Status: Never smoker Tobacco Type: Cigarettes Second Hand Exposure: No; Do You Dip or Chew Tobacco: No; Hx Alcohol Use: Yes Alcohol type: beer and hard liquor Hx Substance Use: No Preferred Language: Zimbabwean Communication Ability: Effective Loop Tender Required: No Beliefs That Will Affect Care: None Current Living Situation: Spouse Feels Safe at Home: Yes Safety Concerns: Feels Safe At This Time Assistive Devices: None Assistive Devices Comment: READING GLASSES Review of Systems Constitutional: no fever and no chills Respiratory: no cough and no dyspnea Gastrointestinal: + abdominal pain (epigastric) and + cons tipation Physical Exam Constitutional: well developed; no acute distress Respiratory: normal respiratory effort Gastrointestinal (Abdomen): Inspection/Auscultation: abdomen normal to inspection; abdomen not distended Psychiatric: Orientation: alert and oriented x 3 Results & Data Vital Signs (Past 12 Hours) Vital Signs Temp Pulse Resp BP Pulse Ox O2 Del Method 01/30/25 08:10 36.5 C 63 17 126/75 96 Room Air PG Care Time/CCT Total # of Minutes Spent Total Time Spent with Patient: Total time spent is greater than 50% in coordination of care (as documented) at patient's floor/unit and/or counseling patient: Coding Level of Care Code 25229 IN/OBS CONSULT LVL 3,45M Diagnoses Epigastric abdominal pain R10.[address] scan, sigmoid colon R93.3 Chronic constipation K59.09
[2025-01-30] MEDS: POLYETHYLENE (MIRALAX) 17 GM PACK PO ONE (14:28)
--- NOTE | 2025-01-30 14:59 | Hospitalist Progress Note ---
Date of Service January 30, 2025 Assessment & Plan (1) Hyperlipidemia: (2) Benign hypertension: (3) Upper back pain on left side: Plan Renetta Elias is a 69-year-old female with PMHx of HTN, HLD, Hypothyroidism, Pugh Esophagus(diagnosed on 2022), Migraine, recent surgery for carpal tunnel syndrome, Chronic lower back pain problem presented with left mid back pain radiating to Epigastric region for 4 days . She is being admitted for further evaluation and management of epigastric pain. #Epigastric pain/constipation CBC, CMP, Lipase looks normal; Troponin negative. Chest CTA done with no acute abnormalities CTAP 01/29: redundant gas filled up to 7cm dilated sigmoid colon concerning for sigmoid volvulus KUB 01/30: stable sigmoid distention Pepcid 20mg IB BID; Protonix 40mg IV BID Continue Amitiza BID for chronic constipation For pain management: Tylenol IV and Morphine prn Gen surg consulted --> recommended GI consultation for endoscopy GI consulted --> EGD set for 01/31, do therapeutic bowel prep for constipation, NPO after midnight #HTN: Lisinopril on hold, BP remains stable, can likely dc on discharge #HLD: Continue Rosuvastatin 5mg PO HS #Hypothyroidism: Continue Levothyroxine 75 mcg daily - check TSH in AM #Migraine: receiving Botox injection for prevention of chronic migraine #H/O bladder infections, interstitial cystitis, and bladder nerve damage: Continue Tamsulosin DVT prophylaxis: encourage ambulation Code: full Discussed w/ GI 01/30 Admission and Anticipated Discharge Date Admission Date: January 29, 2025 Supervising Physician Co-Signing Physician Notes the patient was not seen by me. Chart reviewed. Discussed with FUNMI Basilio. Agree with assessment and plan. Subjective Renetta seen & examined this afternoon. She reports her abdominal pain has improved since coming to the hospital. Discussed her chronic constipation on an outpatient basis. States she follows w/ [facility] but would be open to another GI office on dc. Physical Exam Constitutional: WD/WN, vitals as above Eyes: PERRL, conjunctivae normal, anicteric sclerae Respiratory: normal respiratory effort Gastrointestinal (Abdomen): +epigastric tenderness to palpation, +BS Skin: no rashes, warm and dry Neurologic: PERRL, EOMI, accommodation nl, no face palsy, no dysarthria Psychiatric: A+Ox3, euthymic affect Results & Data Results & Data Vital Signs (Past 12 Hours) Vital Signs Temp Pulse Resp BP Pulse Ox O2 Del Method 01/30/25 08:10 36.5 C 63 17 126/75 96 Room Air PG Care Time/CCT Total # of Minutes Spent Total Time Spent with Patient: Total time spent is greater than 50% in coordination of care (as documented) at patient's floor/unit and/or counseling patient: Coding Level of Care Code 04987 SUB INP/OBS CARE 2/35MIN Diagnoses Hyperlipidemia E78.5 Benign hypertension I10 Upper back pain on left side M54.9
--- NOTE | 2025-01-30 18:25 | Communication Note ---
Date of Service: January 30, 2025 Patient told to stop drinking if she develops distention or nausea and vomiting. Abdomen is protuberant but relatively soft nontender without guarding rebound or rigidity. Bowel sounds are present
[2025-01-30] MEDS: ACETAMINOPHEN 325 MG TAB PO PRN (18:34)
[2025-01-30] MEDS: CETIRIZINE HCL 10 MG TABLET PO SCH (21:38)
[2025-01-30] MEDS: ROSUVASTATIN CALCIUM 5 MG TAB PO SCH (21:38)
[2025-01-30] MEDS: DOCUSATE SODIUM 100 MG CAP PO SCH (21:42)
[2025-01-31 06:00] LABS: Hematocrit (blood only) 33.6 % (37.0-47.0); Hemoglobin 11.5 g/dl (12.0-16.0); Mean Corpuscular Hemoglobin 29.6 pg (25.0-34.0); Mean Corpuscular Volume 86.6 fL (80.0-100.0); Platelet Count 208 K/uL (130-400); RDW Standard Deviation 43.4 fL (36.4-46.3); Red Blood Count 3.88 M/uL (4.20-5.40); White Blood Count 3.64 K/ul (4.8-10.8)
[2025-01-31 06:15] LABS: Anion Gap 4.0 (3-11); Blood Urea Nitrogen 6.0 mg/dl (6-23); Calcium 8.6 mg/dl (8.6-10.3); Carbon Dioxide 29.0 mmol/L (21-32); Chloride 106.0 mmol/L (98-107); Creatinine Clr Calc Pharmacy 60.8 ml/min; Glucose 87.0 mg/dl (70-99(Fasting)); Potassium 3.7 mmol/L (3.5-5.1); Sodium 139.0 mmol/L (136-145)
--- NOTE | 2025-01-31 10:51 | History & Physical Bridge Note ---
Date of Service January 31, 2025 History & Physical Bridge Note I have examined the patient, reviewed the History & Physical and in the interval since the performance of the History & Physical I have noted the following changes of clinical significance: no changes noted Patient had black coffee at 6:30 AM but has been NPO since that time. 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 Keep NPO for EGD and colonoscopy. Supervising Physician Co-Signing Physician Notes agree with above.
--- NOTE | 2025-01-31 10:59 | Gastroenterology Progress Note ---
Date of Service January 31, 2025 Assessment & Plan (1) Chronic constipation: Plan: We did discuss the possibility of dyssynergic defecation as a possible etiology of her symptoms. We discussed biofeedback therapy. She notes she has done similar therapy for her bladder but refuses to move forward due to the internal exam. She notes that she does see a specialist at [place] and may be getting a bladder stimulator. She does note frustration that locally at [facility] she has not been able to see a physician. Given she has tried and failed conventional therapeutic options, has had an extensive work-up through [facility] locally, and is not willing to undergo biofeedback therapy for possible dyssynergic defecation I think she should consider tertiary evaluation at [facility] to see if there are any further options for her at this point. I will place a referral. On discharge, she should continue her home constipation medications as prescribed by her providers from [facility], and use Miralax 17 gm 1-3 times daily as needed. She may titrate based on response. Admission and Anticipated Discharge Date Admission Date: January 29, 2025 Supervising Physician Co-Signing Physician Notes Epigastric pain suspected sigmoid volvulus for upper and lower endoscopy. If sigmoid volvulus confirmed patient should consider elective resection as high risk of recurrence Subjective Follow-up of constipation. Reviewed patient's records regarding her chronic constipation. She has tried many different pharmaceutical options both prescription and OTC for constipation. No abnormalities on colonoscopy or imaging to explain her ongoing symptoms. She tells me her constipation goes back to childhood. She notes she is seeing a specialist for neurogenic bladder issues in [place] and they are considering a bladder stimulator per her reports. She was given a bowel prep yesterday with 238 gm Miralax + 64 oz Gatorade and has had success with moving her bowels. Review of Systems Gastrointestinal: + constipation (improving) Physical Exam Constitutional: well developed Gastrointestinal (Abdomen): Inspection/Auscultation: abdomen not distended audible bowel sounds without stethoscope Results & Data Results & Data Vital Signs (Past 12 Hours) Vital Signs Temp Pulse Pulse Resp BP BP Pulse Ox 01/31/25 08:08 36.4 C L 52 L 16 130/74 97 01/30/25 23:07 36.8 C 62 16 131/75 95 O2 Del Method 01/31/25 08:08 Room Air 01/30/25 23:07 Room Air PG Care Time/CCT Total # of Minutes Spent Total Time Spent with Patient: Total time spent is greater than 50% in coordination of care (as documented) at patient's floor/unit and/or counseling patient: Coding Level of Care Code 14736 SUB INP/OBS CARE 3/50MIN Diagnoses Chronic constipation K59.09
[2025-01-31] MEDS ORDERED: PROPOFOL IV EMULSION 10 MG/ML 20 ML VIAL IV ONE (11:54)
[2025-01-31] MEDS ORDERED: LIDOCAINE 2% 2 ML VIAL/AMP(20MG/ML) INFIL ONE (11:54)
--- NOTE | 2025-01-31 11:56 | Anesthesiology Consultation ---
Date of Service January 31, 2025 Assessment & Plan ASA ASA3 Proposed Anesthesia Anesthesia Type: MAC Risk / Benefits Reviewed With: PT / POA / Parent / Guardian, Accepts Plan and Informed Consent Obtained History Surgery Operation Date: 01/31/25 16:45 Proposed Procedures p Esophagogastroduodenoscopy Dr. Michele Bautista MD Height/Weight Height: 5 ft 5 in Weight: 75.5 kg Allergies Allergy/AdvReac Type Severity Reaction Status Date / Time aspirin AdvReac Mild SEVERE Verified 01/31/25 11:53 STOMACH PAIN cephalexin AdvReac Mild GI SYMPTOMS Verified 01/31/25 11:53 codeine AdvReac Mild SEVERE Verified 01/31/25 11:53 STOMACH PAIN NSAIDS (Non-Steroidal AdvReac Mild STOMACH Verified 01/31/25 11:53 Anti-Inflamma PAIN Medications Home Medications Medication Instructions Recorded Confirmed Last Taken calcium carbonate 1,000 1 tab PO BID PRN Stomach Upset 06/28/19 01/29/25 07/08/24 mg-simethicone 60 mg chewable tablet (Maalox Advanced) docusate sodium 100 mg capsule 100 mg PO HS 06/28/19 01/29/25 01/28/25 levothyroxine 75 mcg tablet 75 mcg PO DAILYBB 11/23/20 01/29/25 01/29/25 tamsulosin 0.4 mg capsule 0.4 mg PO QAM 06/25/24 01/29/25 01/29/25 07:00 baclofen 10 mg tablet 10 mg PO BID PRN muscle spasms 01/29/25 01/29/25 Unknown baclofen 10 mg tablet 10 mg PO HS 01/29/25 01/29/25 01/28/25 buspirone 15 mg tablet 15 mg PO BID 01/29/25 01/29/25 01/29/25 07:00 cetirizine 10 mg tablet (Zyrtec) 10 mg PO HS 01/29/25 01/29/25 01/28/25 famotidine 20 mg tablet 20 mg PO BID 01/29/25 01/29/25 01/29/25 07:00 gabapentin 100 mg capsule 100 mg PO TID PRN back/nerve pain 01/29/25 01/29/25 Unknown gabapentin 600 mg tablet 1,200 mg PO HS 01/29/25 01/29/2501/28/25 gabapentin 600 mg tablet 600 mg PO QAM 01/29/25 01/29/25 01/29/25 hyoscyamine sulfate 0.125 mg tablet 0.125 mg PO TID PRN Spasms 01/29/25 01/29/25 01/28/25 lubiprostone 24 mcg capsule 24 mcg PO BID 01/29/25 01/29/25 01/29/25 07:00 pantoprazole 40 mg tablet,delayed 40 mg PO BID 01/29/25 01/29/25 01/29/25 07:00 release rosuvastatin 10 mg tablet 5 mg PO HS 01/29/25 01/29/25 01/28/25 sucralfate 1 gram tablet 1 g PO TID PRN stomach pain 01/29/25 01/29/25 01/29/25 tramadol 50 mg tablet 50 - 100 mg PO Q6 PRN Pain 01/29/25 01/29/25 Unknown trazodone 100 mg tablet 200 mg PO HS 01/29/25 01/29/25 01/28/25 Active Medications Generic Name Dose Route Start Last Admin Trade Name Freq PRN Reason Stop Dose Admin Acetaminophen 650 mg 01/30/25 01:16 01/30/25 18:34 Acetaminophen 325 Mg Tab PO 03/01/25 01:15 650 mg Q4H PRN Administration pain/fever Buspirone HCl 15 mg 01/30/25 09:00 01/31/25 09:12 Buspirone 15 Mg Tab PO 03/01/25 08:59 Not Given BID JOSEPH Cetirizine HCl 10 mg 01/30/25 21:00 01/30/25 21:38 Cetirizine Hcl 10 Mg Tablet PO 03/01/25 20:59 10 mg HS JOSEPH Administration Docusate Sodium 100 mg 01/30/25 21:00 01/30/25 21:42 Docusate Sodium 100 Mg Cap PO 03/01/25 20:59 Not Given HS JOSEPH Gabapentin 1,200 mg 01/30/25 21:00 01/30/25 21:39 Gabapentin 600 Mg Tab PO 03/01/25 20:59 1,200 mg HS JOSEPH Administration Gabapentin 600 mg 01/30/25 09:00 01/31/25 09:13 Gabapentin 600 Mg Tab PO 03/01/25 08:59 Not Given QAM JOSEPH Hyoscyamine 0.125 mg 01/30/25 01:16 01/30/25 14:29 Hyoscyamine Sulfate 0.125 Mg Tab PO 03/01/25 01:15 0.125 mg TID PRN Administration Spasms Acetaminophen 1,000 mg in 100 mls @ 400 mls/hr 01/30/25 07:15 01/31/25 06:32 Ofirmev IV 02/02/25 07:14 Infused Q8 JOSEPH Infusion Famotidine 20 mg in 5 mls @ 2.5 mls/min 01/30/25 09:00 01/31/25 09:23 Pepcid 20mg Iv Push IV 03/01/25 08:59 2.5 mls/min Q12H JOSEPH Administration Pantoprazole Sodium 40 mg in 10 mls @ 5 mls/min 01/30/25 09:00 01/31/25 09:23 Protonix IV 03/01/25 08:59 5 mls/min BID JOSEPH Administration Levothyroxine Sodium 75 mcg 01/30/25 06:30 01/31/25 05:44 Levothyroxine Sodium 75 Mcg Tablet PO 03/01/25 06:29 75 mcg DAILYBB JOSEPH Administration Lubiprostone 24 mcg 01/30/25 09:00 01/31/25 09:13 Lubiprostone 8 Mcg Cap PO 03/01/25 08:59 Not Given BID JOSEPH Morphine Sulfate 1 mg 01/29/25 23:37 01/30/25 05:37 Morphine Sulfate 2 Mg/Ml Carp IV 02/12/25 23:36 1 mg Q6 PRN Administration Pain Polyethylene Glycol 17 gm 01/30/25 09:00 01/31/25 09:13 Polyethylene (Miralax) 17 Gm Pack PO 03/01/25 08:59 Not Given BID JOSEPH Rosuvastatin Calcium 5 mg 01/30/25 21:00 01/30/25 21:38 Rosuvastatin Calcium 5 Mg Tab PO 03/01/25 20:59 5 mg HS JOSEPH Administration Tamsulosin HCl 0.4 mg 01/30/25 09:00 01/31/25 09:12 Tamsulosin Hcl 0.4 Mg Cap PO 03/01/25 08:59 Not Given QAM JOSEPH Trazodone HCl 200 mg 01/30/25 21:00 01/30/25 21:38 Trazodone Hcl 100 Mg Tab PO 03/01/25 20:59 200 mg HS JOSEPH Administration NPO Date Last Intake of Fluids: 01/31/25 Time Last Intake of Fluids: 05:30 Date Last Intake of Solids: 01/28/25 Time Last Intake of Solids: 23:00 Past Medical History Medical History Hx of chest pain Carpal tunnel syndrome on both sides Deviated nasal septum "slight" Incomplete bladder emptying follows with urology in [place] Aortic regurgitation follows with fragin History of asthma no longer uses inhaler - had "night time asthma"- has resolved Hx of migraines gets botox and no longer gets headaches Medical marijuana use uses thc cream on painful hands Anxiety and depression Spinal stenosis Peripheral neuropathy Chronic back pain Barretts esophagus Fibromyalgia History of stomach ulcers GERD (gastroesophageal reflux disease) IBS (irritable bowel syndrome) Hypothyroidism Hyperlipidemia Hypertension Exercise / Class Metabolic Activity II 4-5 Yardwork/Stairs/Walk up hill Past Family History Family History Uncle Colon cancer Sister Breast cancer Aunt Breast cancer Family/Other Prostate cancer maternal cousin Denies family history of Ovarian cancer Past Surgical History Surgical History Hx of cystoscopy Hx of arthroscopy of right knee Hx of lumbar discectomy (1996) History of tonsillectomy and adenoidectomy Status post epidural steroid injection multiple Family history of reaction to anesthesia BROTHER>NAUSEA History of dilatation and curettage History of bilateral tubal ligation History of esophagogastroduodenoscopy (EGD) History of laparoscopy History of colonoscopy History of hysterectomy RYLAN History of tooth extraction History of cholecystectomy History of appendectomy History of section Fusion of spine (2002) L4, L5 (per pt., failed) History of cardiac cath (06/2019) 06/2019 [facility] - no stents - follows with fragin (~ 6 months) > 10 YEARS AGO - 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 Past Anesthesia History No Hx of Anesthesia Complications and No Family Hx of Anesthesia Complications History of PONV No Hx of PONV and No Hx of Motion Sickness Social History Smoking Status: Never smoker tobacco type: cigarettes Do You Dip or Chew Tobacco: No Hx Alcohol Use: Yes Alcohol type: beer and hard liquor alcohol intake frequency: holidays/special occasions only Hx Substance Use: No substance use type: does not use and marijuana Substance Use Type Other:: MEDICAL MARIJUANA CARD, RARE USE OF Last Used Substance Other:: med marijuana card Physical Exam Vital Signs Last Vital Signs Temp 36.4 C L 01/31/25 08:08 Pulse 52 L 01/31/25 08:08 Resp 16 01/31/25 08:08 BP 130/74 01/31/25 08:08 Pulse Ox 97 01/31/25 08:08 O2 Del Method Room Air 01/31/25 11:06 Constitutional no acute distress ENMT Mouth: + chipped teeth; no TMJ abnormality Mallampati Class: II Neck normal visual inspection Respiratory normal respiratory effort Auscultation: lungs clear to auscultation bilaterally Cardiovascular Rate/Rhythm: regular rate and regular rhythm Neurologic moves all extremities Psychiatric Orientation: alert and oriented x 3 Testing Laboratory Results 01/31/25 05:28 01/31/25 05:28 PT 10.6 Seconds (9.0-12.0) 01/29/25 14:58 INR 1.0 (0.9-1.1) 01/29/25 14:58 APTT 26 Seconds (21-31) 01/29/25 14:58 Electrocardiogram Date: 01/29/25 Findings: + NSR @ Chest X-Ray Date: 01/29/25 Findings: + NAD
--- NOTE | 2025-01-31 12:51 | GI REPORT ---
[facility] Patient: ROSEMARIE BEAUCHAMP : 1955 Sex at : Female Age: 69 Years Procedure: Upper GI endoscopy Date: 01/31/2025 Attending Physician: Amador Bautista MD Referring MD: Indications: - Epigastric abdominal pain Medications: - Monitored Anesthesia Care Complications: - No immediate complications. Estimated Blood Loss: - Estimated blood loss: None. Procedure: - The egd scope was introduced through the mouth and advanced to the second part of the duodenum. - The upper GI endoscopy was accomplished without difficulty. - The patient tolerated the procedure well. Findings: - The esophagus was normal. - The entire examined stomach was normal. - The examined duodenum was normal. Impression: - Normal esophagus. - Normal stomach. - Normal examined duodenum. - No specimens collected. Recommendation: - No upper GI findings to account for her epigastric and left flank pain. Potentially related to partial sigmoid volvulus. For colonoscopy today Procedure Code(s): - 95984, Esophagogastroduodenoscopy, flexible, transoral; diagnostic, including collection of specimen(s) by brushing or washing, when performed (separate procedure) Diagnosis Code(s): - R10.13, Epigastric pain CPT(R) - 2022 copyright [employer]. All Rights Reserved. The CPT codes, CCI edits and ICD codes generated are intended as suggestions and were generated based on input data. These codes are preliminary and upon chip crusher operator review may be revised to meet current compliance and payer requirements. The provider is responsible for the final determination of appropriate codes, and modifiers. Amador Bautista MD This document has been electronically signed. Note Initiated:01/31/2025 Note Completed:01/31/2025 12:50 PM \\[email or web address]\[email or web address]\Data\Provation\Results\LIVE\[id number].[email or web address]
--- NOTE | 2025-01-31 12:56 | GI REPORT ---
[facility] Patient: ROSEMARIE BEAUCHAMP : 1955 Sex at : Female Age: 69 Years Procedure: Colonoscopy Date: 01/31/2025 Attending Physician: Amador Bautista MD Referring MD: Indications: - Abdominal distention suspected sigmoid volvulus Medications: - Monitored Anesthesia Care Complications: - No immediate complications. Estimated Blood Loss: - Estimated blood loss: None. Procedure: - The adult colonoscope was introduced through the anus and advanced to the cecum, identified by appendiceal orifice and ileocecal valve. - The colonoscopy was performed without difficulty. - The quality of the bowel preparation was poor. Findings: - The perianal examination was normal. - Relatively collapsed rectum. There was a twist noted at the rectosigmoid distal sigmoid junction. Passing through here when entered a dilated sigmoid colon. This is consistent with volvulus. Scope was advanced all the way to the cecum and air was evacuated on withdrawal. - No polyps neoplasia or mass encountered - Redundant colon Impression: - Preparation of the colon was poor. - Relatively collapsed rectum. There was a twist noted at the rectosigmoid distal sigmoid junction. Passing through here when entered a dilated sigmoid colon. This is consistent with volvulus. Scope was advanced all the way to the cecum and air was evacuated on withdrawal. - No polyps neoplasia or mass encountered - Redundant colon - No specimens collected. - Sigmoid volvulus endoscopically decompressed. Recommendation: - Surgery to readdress discussed elective sigmoid resection. Sigmoid volvulus almost always reoccurs. Procedure Code(s): - 01512, Colonoscopy, flexible; diagnostic, including collection of specimen(s) by brushing or washing, when performed (separate procedure) CPT(R) - 2023 copyright [employer]. All Rights Reserved. The CPT codes, CCI edits and ICD codes generated are intended as suggestions and were generated based on input data. These codes are preliminary and upon welding machine tender review may be revised to meet current compliance and payer requirements. The provider is responsible for the final determination of appropriate codes, and modifiers. Amador Bautista MD This document has been electronically signed. Note Initiated:01/31/2025 Note Completed:01/31/2025 12:55 PM \\[email or web address]\[email or web address]\Data\Provation\Results\LIVE\[id number].pdf
--- NOTE | 2025-01-31 12:58 | Communication Note ---
Date of Service: January 31, 2025 EGD Normal Colon sigmoid volvulus reduced Surgery reassess and discuss elective sigmoid resection
--- NOTE | 2025-01-31 13:55 | Anesthesiology Progress Note ---
Date of Service January 31, 2025 Anesthesia Post Procedure Vital Signs Vital Signs: Temp Pulse Pulse Resp BP BP Pulse Ox 01/31/25 13:24 57 L 17 148/75 H 97 01/31/25 13:05 58 L 17 126/78 100 01/31/25 12:50 57 L 17 110/58 L 100 01/31/25 11:54 36.5 C 54 L 17 140/65 98 01/31/25 11:06 01/31/25 08:08 36.4 C L 52 L 16 130/74 97 01/30/25 23:07 36.8 C 62 16 131/75 95 01/30/25 15:04 36.5 C 60 18 126/78 98 O2 Del Method 01/31/25 13:24 Room Air 01/31/25 13:05 Room Air 01/31/25 12:50 Room Air 01/31/25 11:54 Room Air 01/31/25 11:06 Room Air 01/31/25 08:08 Room Air 01/30/25 23:07 Room Air 01/30/25 15:04 Room Air Pain Intensity Upper Abdomen: Pain Intensity: 4 Transfer of Care Handoff Completed per policy Notes Mental Status: alert / awake / arousable Patient Amnestic to Procedure: Yes Nausea / Vomiting: adequately controlled Pain: adequately controlled Airway Patency, RR, SpO2: stable & adequate BP & HR: stable & adequate Hydration State: stable & adequate Anesthetic Complications: no major complications apparent and Pt Satisfied with anesthetic care
--- NOTE | 2025-01-31 14:32 | Discharge Summary ---
Discharge Summary Date of Service January 31, 2025 Principal Dx & Hospital Course #1 = Principal Diagnosis (1) Hyperlipidemia: (2) Benign hypertension: (3) Upper back pain on left side: Renetta Mcgarry is a 69-year-old female with PMHx of HTN, HLD, Hypothyroidism, Pugh Esophagus(diagnosed on 2022), Migraine, recent surgery for carpal tunnel syndrome, Chronic lower back pain problem presented with left mid back pain ra diating to Epigastric region for 4 days . She is being admitted for further evaluation and management of epigastric pain. #Epigastric pain/constipation CBC, CMP, Lipase looks normal; Troponin negative. Chest CTA done with no acute abnormalities CTAP 01/29: redundant gas filled up to 7cm dilated sigmoid colon concerning for sigmoid volvulus KUB 01/30: stable sigmoid distention Pepcid 20mg IB BID; Protonix 40mg IV BID Continue Amitiza BID for chronic constipation GI/General surgery consulted during hospital stay s/p EGD --> results normal s/p CN --> results consistent w/ sigmoid volvulus that did require decompression. Surgery contacted following procedure --> given that volvulus was reduced, she is safe for dc & can have this address outpatient. Return precautions include severe abd pain, n/v or inability to pass gas. #HTN: BP stable, discontinue Lisinopril. #HLD: Continue Rosuvastatin 5mg PO HS #Hypothyroidism: Continue Levothyroxine 75 mcg daily #Migraine: receiving Botox injection for prevention of chronic migraine #H/O bladder infections, interstitial cystitis, and bladder nerve damage: Continue Tamsulosin Discussed w/ GI & Gen surg 01/31 --> discharged home. Admission HPI Per Admitting Provider This is a 69-year-old female with PMHx of HTN, HLD, Hypothyroidism, Pugh Esophagus(diagnosed on 2022), Migraine, recent surgery for carpal tunnel syndrome that presents to the emergency department via private vehicle with complaints of "back and epigastric pain" the patient states that she began with left middle back pain this past Monday. She denies any trauma or injury. No exertional activities. She notes then she began with left back pain radiating into the epigastric region . She also notes some intermittent difficulty breat mariel/chest tightness. She notes that the pain in the epigastric region has been present for the entire day today. She does note a history of GI issues. She did undergo cardiac catheterization at this facility on 06/28/2019. At that time patient was found to have mild to moderate nonobstructive coronary artery disease with 40 to 50% proximal ramus as well as 20 to 30% proximal first diagonal. Normal intracardiac filling pressures were noted at that time. The patient does furnish a CT scan report of the abdomen/pelvis dated from earlier this month on the second that she notes that she notes was obtained secondary to some constipation. Scan was overall okay at that time other than she notes did note a trace pericardial effusion.Denies any nausea, vomiting diarrhea or fever. She has chronic constipation issues. Her last EGD was on 2022 and was recommended to get EGD done every 3 years She consumes alcohol socially and is non smoker. She is retired now and lives with her She is full code Discharge Exam Constitutional WD/WN, vitals as above Eyes PERRL, conjunctivae normal, anicteric sclerae Respiratory normal respiratory effort Skin no rashes, warm and dry Neurologic PERRL, EOMI, accommodation nl, no face palsy, no dysarthria Psychiatric A+Ox3, euthymic affect Discharge Plan Discharge Items Patient Disposition: Home - Self-Care Reason For Visit: EPIGASTRIC PAIN Discharge Diagnosis: Sigmoid Volvulus Condition on Discharge: Good Activity: Resume your previous activity Non-emergency contact: Primary Care Provider, Surgeon and Pulp Screen Operator Call non-emergency contact if: you have any medication questions, your symptoms worsen and your pain is not controlled Follow-up/Referrals: Js Edwards DO [Physician] - Manpreet Car MD [Physician] - Emanuel Vicente DO [Surgeon] - 02/05/25 1:30 pm Na Faria MD [Primary Care Provider] - Diet: Low Fiber Addtl Attending Provider Instructions: Ms. Elias, You were recently hospitalized for ongoing abdominal pain. You were found to have a mild bowel obstruction called a sigmoid volvulus on your imaging & colonoscopy. On discharge: Please follow up with general surgery - Dr. Car's office phone number is above if you should have questions or concerns. At this visit, the discussion of an elective sigmoid resection will take place. Please follow up with GI. Please ensure you are still moving your bowels - continue Amitiza twice daily as previously scheduled. Please use Miralax or SennaS in addition if needed. The remainder of your outpatient medications may be resumed. Please return to the ER if you experience severe abdominal pain, nausea/vomiting, or unable to pass gas. Best of luck! Kely Zhang PA-C Pending Studies at Discharge: No Stand-Alone Forms: My [facility], Smoking Cessation Medications and DC Order Prescriptions: Continued docusate sodium 100 mg Capsule 100 mg PO HS Maalox Advanced 1,000-60 mg Tablet,Chewable 1 tab PO BID PRN (Reason: Stomach Upset) levothyroxine 75 mcg tablet 75 mcg PO DAILYBB tamsulosin 0.4 mg capsule 0.4 mg PO QAM buspirone 15 mg tablet 15 mg PO BID trazodone 100 mg tablet 200 mg PO HS lubiprostone 24 mcg capsule 24 mcg PO BID sucralfate 1 gram tablet 1 g PO TID PRN (Reason: stomach pain) Rx Instructions: slurry baclofen 10 mg tablet 10 mg PO HS pantoprazole 40 mg tablet,delayed release (DR/EC) 40 mg PO BID hyoscyamine sulfate 0.125 mg tablet 0.125 mg PO TID PRN (Reason: Spasms) Rx Instructions: definately uses 1 every bedtime tramadol 50 mg tablet 50 - 100 mg PO Q6 PRN (Reason: Pain) rosuvastatin 10 mg tablet 5 mg PO HS gabapentin 600 mg tablet 1,200 mg PO HS gabapentin 100 mg capsule 100 mg PO TID PRN (Reason: back/nerve pain) gabapentin 600 mg tablet 600 mg PO QAM famotidine 20 mg Tablet 20 mg PO BID baclofen 10 mg tablet 10 mg PO BID PRN (Reason: muscle spasms) cetirizine [Zyrtec] 10 mg Tablet 10 mg PO HS Discharge Orders: Discharge Order (Routine); Ordered 01/31/25 Ordered By: Kely Zhang Admission Data Admit Date/Time: 01/29/25 22:18 Attending Provider: Hong Tran Admit Provider: Sage Horn Primary Care Provider: Na Faria Other Providers: Gail Snow; Manpreet Car; Isa García; Js Edwards; Lien Mayorga; Talita Yeung; Mary Paredes; Celia Young; Matthew Galvan; Gita Irvin; Jacey Stewart; Juan Hooks; Racheal Capellan; Analy Vasquez; Lucinda Moreno; Erin Cat; Cherise De Jesus; Joshua Wise; Eliel Whitfield; Kavita Del Rio; Maksim Wilkerson Jr; Phuc Rooney; Guzman Mancini; Roman Arcos; Killian Leonard; Lola Hunter; Karsten Chiang I; Charmaine Rice; Amador Bautista; Baron Perez; Yves Mazariegos; Rufino Robbins Other Interventions: Discharge Summary Assessment (RN) Last Done: 01/31/25 13:48 Hospital Stay Data Consultations 01/29/25 21:12 ED Decision to Admit Stat 01/30/25 02:28 Consult General Surgery Routine 01/30/25 07:54 Consult Gastroenterology Routine Procedures Performed Operation Date: 01/31/25 16:45 Actual Procedures p Esophagogastroduodenoscopy - Amador Bautista MD s Colonoscopy - Amador Bautista MD Diagnostic Imagining Performed 01/29/25 17:52 CT angio chest dissec wo/w con Stat 01/29/25 22:03 CT abdomen pelvis wo/w con Urgent Pending Results Patient Have Any Pending Studies at Discharge: No Discharge Instructions Given to Patient (Per Discharging Provider) Ms. Elias, Eduardo were recently hospitalized for ongoing abdominal pain. You were found to have a mild bowel obstruction called a sigmoid volvulus on your imaging & colonoscopy. On discharge: Please follow up with general surgery - Dr. Car's office phone number is above if you should have questions or concerns. At this visit, the discussion of an elective sigmoid resection will take place. Please follow up with GI. Please ensure you are still moving your bowels - continue Amitiza twice daily as previously scheduled. Please use Miralax or SennaS in addition if needed. The remainder of your outpatient medications may be resumed. Please return to the ER if you experience severe abdominal pain, nausea/vomiting, or unable to pass gas. Best of luck! Kely Zhang PA-C Supervising Physician Co-Signing Physician Notes The patient was not seen by me. The chart was reviewed. Case discussed with FUNMI Basilio. Agree with assessment and plan Total Time Total Time Spent Total Time Spent (In Minutes): 60 Total Time Includes: Examination of the Patient, Discharge Planning, Medication Reconciliation, Communication With Other Providers and Other Coding Level of Care Code 20768 INP/OBS DISCH >30 MIN Diagnoses Hyperlipidemia E78.5 Benign hypertension I10 Upper back pain on left side M54.9
[2025-01-31 14:46] VITALS: BP 158/72; PULSE 60; RESP 16; TEMP 98.1; O2SAT 99
--- NOTE | 2025-01-31 18:53 | Communication Note ---
Date of Service: January 31, 2025 Return to patient's room and late rounds. Patient had already been discharged. Reviewed postprocedure risk of recurrent sigmoid volvulus. Recommend surgery evaluation for potential elective sigmoid resection.
--- NOTE | 2025-02-01 07:33 | Electrocardiogram Report ---
Test Reason : Blood Pressure : */* mmHG Vent. Rate : 59 BPM Atrial Rate : 59 BPM P-R Int : 158 ms QRS Dur : 90 ms QT Int : 424 ms P-R-T Axes : 52 29 62 degrees QTcB Int : 419 ms Sinus bradycardia Otherwise normal ECG When compared with ECG of 27-May-2024 13:10, No significant change was found Confirmed by Jw Crowder ([id number]) on 02/01/2025 7:33:22 AM Referred By: REFERRED SELF Confirmed By: Jw Crowder
== END 2025-01-31 16:15 | disposition home or self-care (01) ==
LOC: 3E 14:42 → ED 14:42 → SUATTDRO 22:18 → 3E 01-30 00:56

== ENCOUNTER 2025-02-13 10:00 | Inpatient (IN) ==
--- NOTE | 2025-02-07 08:50 | Anesthesiology Consultation ---
Date of Service February 07, 2025 Assessment & Plan (1) Encounter for pre-operative examination: - Infectious disease screening: Per assessment on 02/06/25- No known recent infectious disease contacts or current infectious disease symptoms. - Cardiology visit (12/30/24): Frequent hypotension- recommended stopping lisinopril and monitoring BP at home. T/C restarting lisinopril if readings trend up over 130/80 consistently. Lyme testing ordered for join pain co mplaints. Discussed statin vacation but patient does not feel it is contributing/declines. Noted snoring but patient declines sleep study. Deemed low risk for upcoming carpal tunnel surgery and can proceed without further cardiac testing [place] [facility] [place] - S/P EGD/colonoscopy (01/31/25): MAC at [facility]. No issues noted per post-op anesthesia progress note. Chart Review Chart Review: Acceptable Risk for Surgery and Patient NOT seen in Pre Admission Testing History Surgery Operation Date: 02/13/25 11:15 Proposed Procedures p Laparoscopic versus Open Sigmoid Colectomy - Emanuel Vicente, Height/Weight Height: 5 ft 5 in Weight: 72.575 kg Allergies Allergy/AdvReac Type Severity Reaction Status Date / Time aspirin AdvReac Mild Severe Verified 02/07/25 08:24 stomach pain cephalexin AdvReac Mild GI symptoms Verified 02/07/25 08:24 codeine AdvReac Mild Severe Verified 02/07/25 08:24 stomach pain NSAIDS (Non-Steroidal AdvReac Mild Stomach Verified 02/07/25 08:24 Anti-Inflamma pain Medications Home Medications Medication Instructions Recorded Confirmed Last Taken calcium carbonate 1,000 1 tab PO BID PRN Stomach Upset 06/28/19 02/06/25 mg-simethicone 60 mg chewable tablet (Maalox Advanced) docusate sodium 100 mg capsule 100 mg PO HS 06/28/19 02/06/25 01/28/25 levothyroxine 75 mcg tablet 75 mcg PO DAILYBB 11/23/20 02/06/25 01/29/25 tamsulosin 0.4 mg capsule 0.4 mg PO QAM 06/25/24 02/06/25 01/29/25 07:00 baclofen 10 mg tablet 10 mg PO BID PRN muscle spasms 01/29/25 02/06/25 Unknown baclofen 10 mg tablet 10 mg PO HS 01/29/25 02/06/25 01/28/25 buspirone 15 mg tablet 15 mg PO BID 01/29/25 02/06/25 01/29/25 07:00 cetirizine 10 mg tablet (Zyrtec) 10 mg PO HS 01/29/25 02/06/25 01/28/25 famotidine 20 mg tablet 20 mg PO BID 01/29/25 02/06/25 01/29/25 07:00 gabapentin 100 mg capsule 100 mg PO TID PRN back/nerve pain 01/29/25 02/06/25 Unknown gabapentin 600 mg tablet 1,200 mg PO HS 01/29/25 02/06/25 01/28/25 gabapentin 600 mg tablet 600 mg PO QAM 01/29/25 02/06/25 01/29/25 hyoscyamine sulfate 0.125 mg tablet 0.125 mg PO TID PRN Spasms 01/29/25 02/06/25 01/28/25 lubiprostone 24 mcg capsule 24 mcg PO BID 01/29/25 02/06/25 01/29/25 07:00 pantoprazole 40 mg tablet,delayed 40 mg PO BID 01/29/25 02/06/25 01/29/25 07:00 release rosuvastatin 10 mg tablet 5 mg PO HS 01/29/25 02/06/25 01/28/25 tramadol 50 mg tablet 50 - 100 mg PO Q6 PRN Pain 01/29/25 02/06/25 Unknown trazodone 100 mg tablet 200 mg PO HS 01/29/25 02/06/25 01/28/25 ondansetron 4 mg disintegrating 4 mg PO Q6H PRN nausea and 02/03/25 02/06/25 Unknown tablet vomiting #14 tabs Past Medical History Medical History Anxiety and depression Aortic regurgitation Follows with Dr. Mcguire Atypical chest pain Barretts esophagus CAD (coronary artery disease) 2020 cath: Mild to moderate nonobstructive CAD- 40-50% proximal ramus, 20-30% proximal first diagonal Medical management recommended Carpal tunnel syndrome on both sides Chronic back pain Chronic constipation Deviated nasal septum "Slight" Fibromyalgia GERD (gastroesophageal reflux disease) History of asthma No longer uses inhaler, "resolved" History of stomach ulcers Hx of migraines Gets botox, last injection 01/2025, no longer gets headaches Hyperlipidemia Hypertension Hypothyroidism IBS (irritable bowel syndrome) Incomplete bladder emptying Follows with [facility] [place] Medical marijuana use THC cream on painful hands Peripheral neuropathy Sigmoid volvulus Spinal stenosis Past Family History Family History Uncle Colon cancer Sister Breast cancer Aunt Breast cancer Stomach cancer Family/Other Prostate cancer maternal cousin Family/Other Breast cancer Father Heart disease Denies family history of Ovarian cancer Past Surgical History Surgical History Family history of reaction to anesthesia Brother- nausea Fusion of spine (2002) L4, L5 ("Failed" per patient) History of appendectomy History of bilateral tubal ligation History of cardiac cath 06/2019- no stents 10+ years ago- no stents History of carpal tunnel surgery of left wrist History of section (1982) History of cholecystectomy (1984) History of colonoscopy (01/31/25) History of dilatation and curettage History of esophagogastroduodenoscopy (EGD) History of hysterectomy RYLAN History of laparoscopy History of tonsillectomy and adenoidectomy History of tooth extraction Hx of arthroscopy of right knee Hx of bilateral oophorectomy Hx of cystoscopy Hx of lumbar discectomy (1996) Status post epidural steroid injection multiple Social History Smoking Status: Former smoker tobacco type: cigarettes Do You Dip or Chew Tobacco: No Smoking End Date: quit 1983 Hx Alcohol Use: Yes Alcohol type: beer and hard liquor alcohol intake frequency: holidays/special occasions only substance use type: marijuana (Medical marijuana card (rare use), THC cream on painful hands) Lab Results Anesthesia Preop Results Results Anesthesia Widget: WBC 5.54 K/ul (4.8-10.8) 02/03/25 Hgb 14.4 g/dl (12.0-16.0) 02/03/25 Hct 40.8 % (37.0-47.0) 02/03/25 Plt 249 K/uL (130-400) 02/03/25 Na 140 mmol/L (136-145) 02/03/25 K 3.4 mmol/L (3.5-5.1) L 02/03/25 Cl 103 mmol/L (98-107) 02/03/25 CO2 27 mmol/L (21-32) 02/03/25 BUN 8 mg/dl (6-23) 02/03/25 Creat 0.82 mg/dl (0.6-1.2) 02/03/25 Glucose Level 101 mg/dl (70-99(Fasting)) H 02/03/25 PT 10.6 Seconds (9.0-12.0) 01/29/25 PTT 26 Seconds (21-31) 01/29/25 INR 1.0 (0.9-1.1) 01/29/25 Testing Electrocardiogram Date: 01/29/25 SB at 59bpm. "Otherwise normal ECG" Chest X-Ray Date: 01/29/25 Findings: + NAD Echocardiogram Date: 12/21/22 EF 65%. No RWMA. No LVH. Grade I DD. No aortic stenosis or insufficiency. Mild to moderate MR. Estimated pulmonary artery mean pressure 11mhg (normal). Stress Test Date: 06/25/19 Negative DSE/ECG for ischemia at 82% MPHR. Maximum of 0.[address] depression noted in leads II, , V2. Noted symptoms of 2/10 jaw pain, chest pain and shortness of breath. Subsequent cardiac cath performed. Cardiac Catheterization Date: 06/28/19 Summary: 1. Mild to moderate nonobstructive coronary artery [id number]% proximal ramus. 20 to 30% proximal first diagonal 2. Normal intracardiac filling pressure Recommendations: No coronary artery findings to explain recurrent rest chest pain. Continued ASCVD risk factor modification Further evaluation by patient's primary care provider, digital sales executive for noncardiac causes of chest pain
[2025-02-13] MEDS: LR 15ML/HR IV SCH (10:29)
[2025-02-13] MEDS ORDERED: ROCURONIUM BROMIDE 10 MG/ML 5 ML VIAL IV ONE (10:42)
[2025-02-13] MEDS ORDERED: PROPOFOL IV EMULSION 10 MG/ML 20 ML VIAL IV ONE (10:42)
[2025-02-13] MEDS ORDERED: LIDOCAINE 2% 2 ML VIAL/AMP(20MG/ML) INFIL ONE (10:42)
[2025-02-13] MEDS ORDERED: MIDAZOLAM HCL 1 MG/ML 2ML VIAL ONE (10:42)
--- NOTE | 2025-02-13 11:07 | History & Physical Bridge Note ---
Date of Service February 13, 2025 History & Physical Bridge Note I have examined the patient, reviewed the History & Physical and in the interval since the performance of the History & Physical I have noted the following changes of clinical significance: no changes noted
[2025-02-13] MEDS ORDERED: ONDANSETRON INJ 2 MG/ML 2 ML VIAL IV PRN (11:24)
[2025-02-13] MEDS ORDERED: PROMETHAZINE HCL 6.25 MG in SODIUM CHLORIDE 0.9% 50 ML IV PRN (11:24)
[2025-02-13] MEDS ORDERED: FLUMAZENIL 0.1 MG/1 ML 10 ML VIAL IV PRN (11:24)
[2025-02-13] MEDS ORDERED: ATROPINE SULFATE 0.1 MG/ML 10ML SYR IV PRN (11:24)
[2025-02-13] MEDS ORDERED: NALOXONE HCL 0.4 MG/1 ML VIAL/CARP IV PRN (11:24)
[2025-02-13] MEDS ORDERED: KETAMINE HCL 10MG/ML SYR ONE (11:27)
[2025-02-13] MEDS ORDERED: ACETAMINOPHEN 1000 MG/100 ML IV IV ONE (11:29)
[2025-02-13] MEDS ORDERED: ePHEDrine sulfate 50 MG/5 ML SYR ONE (12:25)
[2025-02-13] MEDS ORDERED: HYDROmorphone INJ 2 MG/ML SYR/VIAL ONE (12:37)
[2025-02-13] MEDS ORDERED: DEXAMETHASONE SOD INJ 4 MG/ML VIAL ONE (12:38)
[2025-02-13] MEDS ORDERED: ONDANSETRON INJ 2 MG/ML 2 ML VIAL ONE (14:01)
[2025-02-13] MEDS ORDERED: SUGAMMADEX SODIUM 200 MG/2 ML VIAL IV ONE ×2 (14:04)
[2025-02-13] MEDS: BUPIVACAINE/EPINEPHRINE 0.5% MPF 1:200,000 30 ML VIAL ONE (14:19)
--- NOTE | 2025-02-13 14:33 | Operative Report ---
PG Post Operative Report Pre & Post Diagnosis Operation Date: 02/13/25 11:15 Pre-Op Diagnosis: Chronic Constipation, Sigmoid volvulus Post-Op Diagnosis: Chronic Constipation, Sigmoid volvulus, adhesions I identified the patient and participated in the time-out.: Yes Procedure Operation Date: 02/13/25 11:15 Actual Procedures p Laparoscopic Sigmoid Colectomy, enterolysis- Emanuel Vicente DO Surgeon Emanuel Vicente DO Concrete Curer rehan Fleming Estimated Blood Loss 25 Findings Consistent with Post-Op Diagnosis Specimens sigmoid colon Description of Procedure After informed consent was obtained the patient was taken to the operating room and placed in supine position. After successful intubation the patient was plac ed into a low lithotomy position. A Fernandez catheter was placed sterilely. The abdomen and perineum were sterilely prepped and draped in usual fashion. Timeout was performed. Supraumbilical incision was made with an 11 blade scalpel. This was carried down through the soft tissue using cautery. Anterior fascia was opened using cautery and 2 #0 Vicryl stay sutures were placed. Peritoneum was elevated with hemostats and incised under direct vision using a Metzenbaum scissor. A finger sweep was performed. A 12 mm Sampson trocar was placed and the abdomen insufflated to 18 mmHg. Laparoscope was inserted. There were adhesions above the umbilicus to the falciform ligament involving transverse colon and omentum. I was able to place a right lower quadrant 12 mm trocar and a right mid abdominal 5 mm trocar. I was then able to use the harmonic scalpel to take down these adhesions to the anterior abdominal wall. Once these were down visualization was much better. The patient was placed in a Trendelenburg position and slightly airplaned to the right. Eventually I would place a left lower quadrant 5 mm trocar as well. We examined the abdomen in 360 degrees. There was an extremely redundant sigmoid colon with some distal dilation consistent with her diagnosis. No other identifiable abnormalities were noted. I began by mobilizing the white line of Toldt laterally down over the peritoneal reflection distally and up to the spleen proximally. Next I picked a spot of the rectosigmoid and made a window in the mesentery. I did this using the harmonic scalpel. A WOJCIECH purple cartridge linear stapler was then used to transect the rectosigmoid. I then evaluated the proximal left colon and found a spot where I could create an anastomosis tension-free. I marked a spot using a 3-0 Polysorb stitch. I then used the harmonic scalpel to take down the mesentery of the sigmoid colon from distal to proximal until I reached the marking suture. Next we grasped the staple line of the colon with a grasper and extended the left lower quadrant trocar site medially and laterally including the fascia. We then toweled off this incision and delivered the sigmoid colon onto the anterior abdominal wall. A bowel clamp was placed and the bowel was divided and the specimen sent to pathology. We used sizers to estimate the size of the lumen to be 28 mm. 2-0 silk was used to hand sew a pursestring. The anvil of the 28 mm stapler was placed into the end of the colon and secured using the pursestring. This was then placed back into the abdominal cavity. At this point we changed our gloves. The fascia of the left lower quadrant incision was closed using 0 PDS in running fashion. Next we re-insufflated the abdomen. The anvil laid over the pelvic brim with no tension whatsoever. We used sizers to come into the rectal stump followed by the EEA handle. The spike was deployed anterior to the staple line. The handle was connected to the anvil. They were secured together without any tension whatsoever. The stapler was fired. Both donuts were intact. We did use a rigid proctoscope to insufflate the rectal stump to do a leak test. I clamped off the proximal colon and we filled the pelvis with water. It was completely airtight with no evidence of a leak. We irrigated 1 final time. There was adequate hemostasis. A 10 flat Jose-Pimentel drain was placed into the pelvis and brought out through the right lower quadrant incision. It was secured to the skin using 0 Vicryl. All the trocars were removed and the abdomen desufflated. The fascia of the camera port was closed using 0 Vicryl in [id number] fashion. All wounds were irrigated. The larger incision was closed using 3-0 Vicryl for deep layers and 4 Monocryl for skin. The smaller trocar sites were closed using 4-0 Monocryl. Marcaine with epinephrine was injected around them for postoperative analgesia and skin glue used as a dressing. Patient was awakened extubated and transferred to recovery in stable condition. My physician assistant city attorney was present through the entire case and was instrumental in providing exposure, running the camera, assisting with the anastomosis, performing the leak check, wound closure and dressing placement. I attest to the content of the Intraoperative Record and any orders documented therein. Any exceptions are noted below.
--- NOTE | 2025-02-13 14:57 | Anesthesiology Progress Note ---
Date of Service February 13, 2025 Anesthesia Post Procedure Vital Signs Vital Signs: Temp Pulse Pulse Resp BP Pulse Ox O2 Del Method 02/13/25 14:37 36 C L 97 H 18 139/58 L 99 Nasal Cannula 02/13/25 10:15 36.6 C 65 18 115/69 100 Room Air O2 Flow Rate 02/13/25 14:37 4 02/13/25 10:15 Transfer of Care Handoff Completed per policy Notes Mental Status: alert / awake / arousable and participated in evaluation Patient Amnestic to Procedure: Yes Nausea / Vomiting: adequately controlled Pain: adequately controlled Airway Patency, RR, SpO2: stable & adequate BP & HR: stable & adequate Hydration State: stable & adequate Anesthetic Complications: no major complications apparent and Pt Satisfied with anesthetic care
[2025-02-13] MEDS: HYDROmorphone INJ 1 MG/ML SYRINGE IV PRN (15:10)
[2025-02-13] MEDS ORDERED: MoRPHine SULFATE 2 MG/ML CARP IV PRN (15:59)
[2025-02-13] MEDS ORDERED: BACLOFEN 10 MG TAB PO PRN (15:59)
[2025-02-13] MEDS: ONDANSETRON INJ 2 MG/ML 2 ML VIAL IV PRN (16:29)
[2025-02-13] MEDS: LACTATED RINGER'S 1,000 ML IV SCH (16:32)
[2025-02-13] MEDS: HYOSCYAMINE SULFATE 0.125 MG TAB PO PRN (16:49)
[2025-02-13] MEDS: MoRPHine SULFATE 4 MG/ML 1 ML CARP\\VIAL IV PRN (16:56)
[2025-02-13] MEDS: ALUMINUM/MAGNESIUM SUSP 30 ML UDC PO STA (18:41)
[2025-02-13] MEDS: GABAPENTIN 600 MG TAB PO SCH (20:10)
[2025-02-13] MEDS: LUBIPROSTONE 8 MCG CAP PO SCH (20:10)
[2025-02-13] MEDS: ROSUVASTATIN CALCIUM 5 MG TAB PO SCH (20:10)
[2025-02-13] MEDS: CETIRIZINE HCL 10 MG TABLET PO SCH (20:10)
[2025-02-13] MEDS: BACLOFEN 10 MG TAB PO SCH (20:10)
[2025-02-13] MEDS: busPIRone 15 MG TAB PO SCH (20:10)
[2025-02-13] MEDS: FAMOTIDINE 20 MG TAB PO SCH (20:10)
[2025-02-13] MEDS: ACETAMINOPHEN 1,000 MG/100 ML VIAL IV SCH (20:11)
[2025-02-14] MEDS: HYDROmorphone INJ 0.5 MG/0.5 ML SYR IV PRN (00:28)
[2025-02-14] MEDS: LEVOTHYROXINE SODIUM 75 MCG TABLET PO SCH (06:01)
[2025-02-14 07:04] LABS: Hematocrit (blood only) 32.2 % (37.0-47.0); Hemoglobin 11.5 g/dl (12.0-16.0); Immature Granulocytes # (auto) 0.02 K/uL (0.01-0.20); Immature Granulocytes % (auto) 0.3 %; Mean Corpuscular Hemoglobin 30.2 pg (25.0-34.0); Mean Corpuscular Volume 84.5 fL (80.0-100.0); Platelet Count 197 K/uL (130-400); RDW Standard Deviation 41.1 fL (36.4-46.3); Red Blood Count 3.81 M/uL (4.20-5.40); White Blood Count 7.77 K/ul (4.8-10.8)
[2025-02-14 07:21] LABS: Anion Gap 6.0 (3-11); Blood Urea Nitrogen 4.0 mg/dl (6-23); Calcium 8.5 mg/dl (8.6-10.3); Carbon Dioxide 27.0 mmol/L (21-32); Chloride 104.0 mmol/L (98-107); Creatinine Clr Calc Pharmacy 35.2 ml/min; Glucose 88.0 mg/dl (70-99(Fasting)); Potassium 3.7 mmol/L (3.5-5.1); Sodium 137.0 mmol/L (136-145)
--- NOTE | 2025-02-14 08:39 | Surgery Progress Note ---
Date of Service February 14, 2025 Assessment & Plan (1) S/P laparoscopic colectomy: Plan: Postoperative day #1. Doing as expected Hemoglobin drop. Likely dilutional. If stable tomorrow we will initiate Lovenox Initiate clear liquids Will DC Fernandez and add Ativan both of which might help her lower abdominal spasms. Dr. Cooper covering for the weekend Admission and Anticipated Discharge Date Admission Date: February 13, 2025 Subjective Patient seen. Doing okay. She is having rather severe lower abdominal discomfort/spasms. She tells me she has not had any pain medicine since last evening. Physical Exam Physical Exam: Alert no acute distress Abdomen is soft with expected tenderness. PARVEZ drain with serous output. Results & Data Vital Signs (Past 12 Hours) Vital Signs Temp Pulse Resp BP BP Pulse Ox O2 Del Method 02/14/25 07:49 36.6 C 60 17 102/59 L 97 Room Air 02/14/25 03:06 36.7 C 77 18 115/69 94 Room Air 02/13/25 23:04 36.6 C 85 18 136/69 96 Room Air PG Care Time/CCT Total # of Minutes Spent Total Time Spent with Patient: Total time spent is greater than 50% in coordination of care (as documented) at patient's floor/unit and/or counseling patient: Coding Level of Care Code 42096 Post Operative Follow-Up Diagnoses S/P laparoscopic colectomy Z90.49
[2025-02-14] MEDS: TAMSULOSIN HCL 0.4 MG CAP PO SCH (09:09)
[2025-02-14] MEDS: GABAPENTIN 600 MG TAB PO SCH (09:10)
[2025-02-14] MEDS: LORazepam 0.5 MG TAB SL PRN (13:47)
[2025-02-14] MEDS: GABAPENTIN 100 MG CAP PO PRN (20:10)
[2025-02-15 06:18] LABS: Hematocrit (blood only) 30.4 % (37.0-47.0); Hemoglobin 10.4 g/dl (12.0-16.0); Immature Granulocytes # (auto) 0.01 K/uL (0.01-0.20); Immature Granulocytes % (auto) 0.2 %; Mean Corpuscular Hemoglobin 29.5 pg (25.0-34.0); Mean Corpuscular Volume 86.1 fL (80.0-100.0); Platelet Count 173 K/uL (130-400); RDW Standard Deviation 41.9 fL (36.4-46.3); Red Blood Count 3.53 M/uL (4.20-5.40); White Blood Count 6.26 K/ul (4.8-10.8)
[2025-02-15 06:40] LABS: Anion Gap 4.0 (3-11); Blood Urea Nitrogen 3.0 mg/dl (6-23); Calcium 8.4 mg/dl (8.6-10.3); Carbon Dioxide 32.0 mmol/L (21-32); Chloride 105.0 mmol/L (98-107); Creatinine Clr Calc Pharmacy 31.7 ml/min; Glucose 94.0 mg/dl (70-99(Fasting)); Potassium 3.5 mmol/L (3.5-5.1); Sodium 141.0 mmol/L (136-145)
[2025-02-15 08:04] LABS: Appearance Urine Clear (Clear); Bacteria Urine Automated None Seen (None Seen); Cast Urine Automated 0-2 /lpf (0-2); Epithelial Cell Urine Auto 0-2 /hpf (0-2); Glucose Urine UA Negative (Negative); RBC Urine Automated 0-2 /hpf (0-2); WBC Urine Automated 0-5 /hpf (0-5)
--- NOTE | 2025-02-15 09:12 | Surgery Progress Note ---
Date of Service February 15, 2025 Assessment & Plan (1) S/P laparoscopic colectomy: Plan: Will start Lovenox today for DVT prophylaxis Encourage ambulation and incentive spirometry Pain control as needed If she continues with urinary retention, we will replace the Fernandez and leave in place for 24 to 48 hours to decompress her bladder We are going to make sure she is on her Flomax Keep her on clear liquids till more meaningful return of bowel function Admission and Anticipated Discharge Date Admission Date: February 13, 2025 Subjective Patient seen and examined. Was straight cathed twice yesterday after Fernandez removal. Afebrile. Abdominal pain is moderately controlled on her current regimen. She had a small bowel movement but states she is not passing flatus. Denies any nausea or vomiting. Physical Exam Constitutional: WD/WN, vitals as above Respiratory: normal respiratory effort, lungs clear to auscultation Cardiovascular: RRR, no murmur, no edema Gastrointestinal (Abdomen): Inspection/Auscultation: abdomen normal to inspection; abdomen not distended Percussion/Palpation: + abdomen tender (Appropriately) and abdomen soft; no guarding Incisions with Dermabond, without drainage, slight surrounding erythema Results & Data Vital Signs (Past 12 Hours) Vital Signs Temp Pulse Resp BP Pulse Ox O2 Del Method 02/15/25 07:08 36.7 C 68 18 111/67 95 Room Air 02/15/25 05:52 37.1 C 77 18 107/73 94 Room Air PG Care Time/CCT Total # of Minutes Spent Total Time Spent with Patient: Total time spent is greater than 50% in coordination of care (as documented) at patient's floor/unit and/or counseling patient: Coding Level of Care Code 72472 Post Operative Follow-Up Diagnoses S/P laparoscopic colectomy Z90.49
[2025-02-15] MEDS: TAMSULOSIN HCL 0.4 MG CAP PO ONE (09:41)
[2025-02-15] MEDS: ENOXAPARIN INJ 40 MG/0.4 ML SYR SQ SCH (12:20)
[2025-02-16 06:50] LABS: Hematocrit (blood only) 31.0 % (37.0-47.0); Hemoglobin 11.1 g/dl (12.0-16.0); Immature Granulocytes # (auto) 0.02 K/uL (0.01-0.20); Immature Granulocytes % (auto) 0.3 %; Mean Corpuscular Hemoglobin 30.7 pg (25.0-34.0); Mean Corpuscular Volume 85.9 fL (80.0-100.0); Platelet Count 186 K/uL (130-400); RDW Standard Deviation 43.0 fL (36.4-46.3); Red Blood Count 3.61 M/uL (4.20-5.40); White Blood Count 5.92 K/ul (4.8-10.8)
[2025-02-16 07:19] LABS: Anion Gap 4.0 (3-11); Blood Urea Nitrogen 4.0 mg/dl (6-23); Calcium 8.2 mg/dl (8.6-10.3); Carbon Dioxide 32.0 mmol/L (21-32); Chloride 105.0 mmol/L (98-107); Creatinine Clr Calc Pharmacy 84.8 ml/min; Glucose 92.0 mg/dl (70-99(Fasting)); Potassium 3.5 mmol/L (3.5-5.1); Sodium 141.0 mmol/L (136-145)
[2025-02-16] MEDS: TAMSULOSIN HCL 0.4 MG CAP PO SCH (09:02)
--- NOTE | 2025-02-16 09:06 | Surgery Progress Note ---
Date of Service February 16, 2025 Assessment & Plan (1) S/P laparoscopic colectomy: Plan: Encourage ambulation and incentive spirometry Pain control improved today. Madrid catheter in place- would recommend keeping for today with possible removal tomorrow. She is passing gas and did have a bowel movement- advanced to full liquids today. Pt seen and examine with Dr. Cooper. Admission and Anticipated Discharge Date Admission Date: February 13, 2025 Supervising Physician Co-Signing Physician Notes Postoperative day 3 sigmoidectomy for sigmoid volvulus She is overall doing well and her pain is better controlled Leave the Madrid in for today for bladder decompression Advance to full liquids Encourage ambulation incentive spirometry Lovenox for DVT prophylaxis Subjective Pt reports that she is ok this morning- does not like that madrid catheter was p laced. Tolerating clear liquids, would like to advance diet for lunch. Pain is better controlled today. Physical Exam Constitutional: WD/WN, vitals as above Respiratory: normal respiratory effort, lungs clear to auscultation Cardiovascular: RRR, no murmur, no edema Gastrointestinal (Abdomen): Inspection/Auscultation: abdomen normal to inspection; abdomen not distended Percussion/Palpation: + abdomen tender (Appropriately) and abdomen soft; no guarding Incisions with Dermabond, without drainage, slight surrounding erythema (improved from yesterday) Results & Data Vital Signs (Past 12 Hours) Vital Signs Temp Pulse Pulse Resp BP Pulse Ox O2 Del Method 02/16/25 07:20 36.9 C 64 18 114/67 94 Room Air 02/15/25 23:25 36.9 C 70 16 98/60 L 94 Room Air PG Care Time/CCT Total # of Minutes Spent Total Time Spent with Patient: Total time spent is greater than 50% in coordination of care (as documented) at patient's floor/unit and/or counseling patient: Coding Level of Care Code 75194 Post Operative Follow-Up Diagnoses S/P laparoscopic colectomy Z90.49
--- NOTE | 2025-02-16 14:19 | Surgery Progress Note ---
Date of Service February 16, 2025 Assessment & Plan (1) S/P laparoscopic colectomy: Plan: Increased abdominal pain with full liquids for lunch. No nausea or vomiting. I did back her down to NPO status, which she is not very happy with. I explained to her that sometimes we need to give the body some more time to recover after surgery. Admission and Anticipated Discharge Date Admission Date: February 13, 2025 Subjective Contacted by patient's nurse who reports that after patient had full liquids for lunch she developed abdominal pain requiring Dilaudid. Per patient, the Dilaudid helped, but she is still having abdominal spasms. Physical Exam Constitutional: WD/WN, vitals as above Respiratory: normal respiratory effort, lungs clear to auscultation Cardiovascular: RRR, no murmur, no edema Gastrointestinal (Abdomen): Inspection/Auscultation: abdomen normal to inspection; abdomen not distended Percussion/Palpation: + abdomen tender (Appropriately) and abdomen soft; no guarding Incisions with Dermabond, without drainage, slight surrounding erythema (improved from yesterday) slight abdominal distention Results & Data Vital Signs (Past 12 Hours) Vital Signs Temp Pulse Resp BP Pulse Ox O2 Del Method 02/16/25 07:20 36.9 C 64 18 114/67 94 Room Air PG Care Time/CCT Total # of Minutes Spent Total Time Spent with Patient: Total time spent is greater than 50% in coordination of care (as documented) at patient's floor/unit and/or counseling patient: Coding Level of Care Code 34187 Post Operative Follow-Up Diagnoses S/P laparoscopic colectomy Z90.49
[2025-02-17 06:52] LABS: Hematocrit (blood only) 34.7 % (37.0-47.0); Hemoglobin 11.7 g/dl (12.0-16.0); Immature Granulocytes # (auto) 0.02 K/uL (0.01-0.20); Immature Granulocytes % (auto) 0.3 %; Mean Corpuscular Hemoglobin 29.0 pg (25.0-34.0); Mean Corpuscular Volume 86.1 fL (80.0-100.0); Platelet Count 209 K/uL (130-400); RDW Standard Deviation 42.7 fL (36.4-46.3); Red Blood Count 4.03 M/uL (4.20-5.40); White Blood Count 6.10 K/ul (4.8-10.8)
[2025-02-17 07:13] LABS: Anion Gap 5.0 (3-11); Blood Urea Nitrogen 4.0 mg/dl (6-23); Calcium 8.4 mg/dl (8.6-10.3); Carbon Dioxide 33.0 mmol/L (21-32); Chloride 103.0 mmol/L (98-107); Creatinine Clr Calc Pharmacy 78.9 ml/min; Glucose 93.0 mg/dl (70-99(Fasting)); Potassium 3.6 mmol/L (3.5-5.1); Sodium 141.0 mmol/L (136-145)
--- NOTE | 2025-02-17 08:04 | Surgery Progress Note ---
Date of Service February 17, 2025 Assessment & Plan (1) S/P laparoscopic colectomy: Plan: doing well. +bs's. wbc good. no fevers +flatus. awaiting bowel fx will increase flomax to bid ( her urologist has her do this at home) and d/c madrid restart clears. can advance to fulls again later if tolerates Admission and Anticipated Discharge Date Admission Date: February 13, 2025 Subjective pt seen. doing ok . pain controlled. no nausea. Physical Exam Physical Exam: alert. nad abd: soft. incisions look good. PARVEZ serous/pink Results & Data Vital Signs (Past 12 Hours) Vital Signs Temp Pulse Resp BP Pulse Ox O2 Del Method 02/17/25 07:43 66 16 116/69 93 Room Air 02/16/25 23:00 36.4 C L 65 16 118/67 93 Room Air PG Care Time/CCT Total # of Minutes Spent Total Time Spent with Patient: Total time spent is greater than 50% in coordination of care (as documented) at patient's floor/unit and/or counseling patient: Coding Level of Care Code 02823 Post Operative Follow-Up Diagnoses S/P laparoscopic colectomy Z90.49
[2025-02-17] MEDS ORDERED: TAMSULOSIN HCL 0.4 MG CAP PO SCH (09:00)
[2025-02-17] MEDS: TAMSULOSIN HCL 0.4 MG CAP PO SCH (09:50)
[2025-02-17] MEDS: SODIUM CHLORIDE 0.9% 250 ML IV ONE (10:29)
--- NOTE | 2025-02-18 08:25 | Surgery Progress Note ---
Date of Service February 18, 2025 Assessment & Plan (1) S/P laparoscopic colectomy: Plan: Patient is POD#5 s/p laparoscopic colectomy -Overall doing well, passing small amount of gas and had a small BM yesterday -Tolerating clears, will advance to fulls this morning -Continue Flomax -PARVEZ drain to remain in place for now -Ok for patient to shower as above. doing well. discussed path report. will advance diet. d/c planning. Admission and Anticipated Discharge Date Admission Date: February 13, 2025 Subjective Patient seen and evaluated this morning, states she is feeling overall well Passing small amount of gas and did have a small BM yesterday Tolerating clears without any issues or worsening abdominal pain. Denies any N/V PARVEZ drain in place, 215cc/24 hours, serous output Fernandez was removed yesterday, patient voiding without issue VSS, afebrile Physical Exam Constitutional: WD/WN, vitals as above Respiratory: normal respiratory effort, lungs clear to auscultation Cardiovascular: Rate/Rhythm: regular rate Gastrointestinal (Abdomen): Abdomen soft, nondistended, appropraite TTP over surgical sites. Incisions with Dermabond in place, c/d/i without signs of infection PARVEZ drain in place with serous output Results & Data Vital Signs (Past 12 Hours) Vital Signs Temp Pulse Resp BP Pulse Ox O2 Del Method 02/18/25 07:00 36.9 C 75 18 134/77 94 Room Air 02/17/25 23:13 37.1 C 78 16 115/71 94 Room Air PG Care Time/CCT Total # of Minutes Spent Total Time Spent with Patient: Total time spent is greater than 50% in coordination of care (as documented) at patient's floor/unit and/or counseling patient: [place]oding [place] [address] Post Operative Follow-Up Patient Type Established Medical Decision Making Straight Forward Diagnoses S/P laparoscopic colectomy Z90.49
[2025-02-18 14:36] VITALS: RESP 16
[2025-02-18 17:08] LABS: Appearance Urine Clear (Clear); Bacteria Urine Automated 4+ (None Seen); Cast Urine Automated 0-2 /lpf (0-2); Epithelial Cell Urine Auto 0-2 /hpf (0-2); Glucose Urine UA Negative (Negative); RBC Urine Automated 0-2 /hpf (0-2); WBC Urine Automated 0-5 /hpf (0-5)
--- NOTE | 2025-02-19 07:39 | Surgery Progress Note ---
Date of Service February 19, 2025 Assessment & Plan (1) S/P laparoscopic colectomy: Plan: Patient is POD#6 s/p laparoscopic colectomy -Overall doing well from a surgical standpoint -Tolerating low fiber diet -PARVEZ drain removed yesterday -Patient is complaining about UTI symptoms, UA yesterday with ketones and trace bacteria present. Patient would like to have antibiotics sent to her pharmacy. -If she tolerates breakfast without any issue, patient is stable for discharge home. Post-operative instructions were covered and patient will follow up with Dr. Vicente in the outpatient setting in the next week or so. Admission and Anticipated Discharge Date Admission Date: February 13, 2025 Subjective Patient seen and evaluated this morning, doing well this morning Tolerating low fiber diet without any reported issues PARVEZ drain was d/c yesterday Patient is complaining about UTI symptoms this morning, UA collected yesterday with trace bacteria present VSS, afebrile Physical Exam Constitutional: WD/WN, vitals as above Respiratory: normal respiratory effort, lungs clear to auscultation Cardiovascular: RRR, no murmur, no edema Gastrointestinal (Abdomen): Abdomen soft, nondistended, nontender to palpation Incisions with Dermabond in place, c/d/i without any signs of infection Skin: no rashes, warm and dry Results & Data Vital Signs (Past 12 Hours) Vital Signs Temp Pulse Resp BP Pulse Ox O2 Del Method 02/18/25 22:43 37.0 C 78 16 113/66 94 Room Air PG Care Time/CCT Total # of Minutes Spent Total Time Spent with Patient: Total time spent is greater than 50% in coordination of care (as documented) at patient's floor/unit and/or counseling patient: [place] [address] Post Operative Follow-Up Patient Type Established History Problem Focused Exam Problem Focused Medical Decision Making Straight Forward Diagnoses S/P laparoscopic colectomy Z90.49
[2025-02-19 08:03] VITALS: BP 129/65; PULSE 81; TEMP 98.2; O2SAT 91
== END 2025-02-19 09:53 | disposition home or self-care (01) | DRG 331 ==
LOC: ASU 10:00 → 3E 14:41

== ENCOUNTER 2025-02-21 14:51 | Inpatient (IN) ==
--- NOTE | 2025-02-21 15:13 | Emergency Department Note ---
Impression & Plan Fever postop, Abdominal pain, Infarct of liver ED Provider Note ED Provider Note NAME: ROSEMARIE BEAUCHAMP AGE:69 SEX: Female : 1955 ARRIVES VIA: POV INFORMANT: Patient ED PROVIDER(s): Leandra Schultz DO CHIEF COMPLAINT: abdominal pain, fever HPI: 69-year-old female presents emergency room with complaints of abdominal pain. Patient is status post sigmoid volvulus repair on 94. Patient states she started spiking temp of 103 yesterday. States that she failed to improve, so she came in to be seen. States that she is having left sided pain radiating down into her suprapubic region. Her incision sites are clean and dry with some hematoma. She is also complaining of left calf pain PAST MEDICAL HISTORY:See Below PAST SURGICAL HISTORY:See Below FAMILY HISTORY:See Below SOCIAL HISTORY:See Below HOME MEDICATIONS:See Below ALLERGIES:See Below VITALS:See Below PHYSICAL EXAMINATION: GENERAL: alert, well appearing, well nourished, no distress, non-toxic NECK: supple, no nuchal rigidity, no adenopathy, non-tender LUNGS: Clear to auscultation. Normal chest wall mechanics, no w/r/r HEART: no murmurs, S1 normal and S2 normal ABDOMEN: abdomen soft, tenderness to LLQ, suprapubic region, normo-active bowel sounds, no masses, no rebound or guarding. Surgical sites clean and dry with some bruising. BACK: Back is symmetrical on inspection and there is no deformity, no midline tenderness, no CVA tenderness. SKIN: no rashes, petechiae, orbruising UPPER EXTREMITIES: upper extremities are grossly normal. FROM, nml pulses b/l. LOWER EXTREMITIES: No pitting edema. FROM, nml pulses b/l. Pain in L calf. NEURO EXAM: Normal sensorium. Vital Signs: reviewed and remarkable Differential Diagnosis: Etiologies such as appendicitis, diverticulitis, obstruction, inflammatory bowel disease, renal colic, PUD, biliary pathology, pancreatitis, mesenteric ischemia, aortic pathology, infections, genitourinary, UTI, perforated viscus, as well as others were entertained. MEDICAL DECISION MAKIN-year-old female presents the emergency room with complaints of abdominal pain. Patient found to have infarcts in liver on CT. Spoke with surgery, they are comfortable with plans for anticoagulation. Spoke with patient, she has no risks, is comfortable with plan for anticoagulation. Spoke with her about her family history, she does have a history on her father side of clots, he of a blood clot. She states she does not know if anyone's ever been tested for any anticoagulation disorders. Consultation(s): hospitalist, surgery ER Treatment Provided: See below Diagnostics Interpreted By Me: -Cardiac Monitoring: An order was placed for continuous cardiac monitoring. The monitor shows a rate of 78 with sinus rhythm. -Laboratory studies: As stated above and show below. -Imaging studies: CT abd/pelvis - liver infarcts; US - no acute changes Triage Nursing Note Reviewed Prior/Outside Records Reviewed Past Med/Surg History Problem List (Updated 02/21/25 @ 19:46 by Leandra Schultz DO) Infarct of liver (Acute) Abdominal pain (Acute) Fever postop (Acute) S/P laparoscopic colectomy (02/13/25) Laparoscopic Sigmoid Colectomy, enterolysis- Emanuel Vicente DO Sigmoid volvulus Chronic constipation Abnormal CT scan, sigmoid colon Elevated AFP Ovarian mass, right Encounter for pre-operative examination Right lumbar radiculopathy Hypertension (Acute) Lumbago (Chronic) Hyperlipidemia (Chronic) Esophageal reflux (Chronic) Chondromalacia patellae (Chronic) Benign hypertension (Chronic) Pugh esophagus (Chronic) Fibromyalgia (Chronic) Aortic regurgitation (Chronic) GERD (gastroesophageal reflux disease) (Chronic) Migraine (Chronic) Medical History CAD (coronary artery disease) 2019 cath: Mild to moderate nonobstructive CAD- 40-50% proximal ramus, 20-30% proximal first diagonal Medical management recommended Atypical chest pain Chronic constipation Sigmoid volvulus Carpal tunnel syndrome on both sides Deviated nasal septum "Slight" Incomplete bladder emptying Follows with [facility] [place] Aortic regurgitation Follows with Dr. Mcguire History of asthma No longer uses inhaler, "resolved" Hx of migraines Gets botox, last injection 01/2025, no longer gets headaches Medical marijuana use THC cream on painful hands Anxiety and depression Spinal stenosis Peripheral neuropathy Chronic back pain Barretts esophagus Fibromyalgia History of stomach ulcers GERD (gastroesophageal reflux disease) IBS (irritable bowel syndrome) Hypothyroidism Hyperlipidemia Hypertension Surgical History H/O colectomy (02/13/25) Laparoscopic Sigmoid Colectomy, enterolysis- Emanuel Vicente, DO History of carpal tunnel surgery of left wrist Hx of bilateral oophorectomy Hx of cystoscopy Hx of arthroscopy of right knee Hx of lumbar discectomy (1996) History of tonsillectomy and adenoidectomy Status post epidural steroid injection multiple Family history of reaction to anesthesia Brother- nausea History of dilatation and curettage History of bilateral tubal ligation History of esophagogastroduodenoscopy (EGD) History of laparoscopy History of colonoscopy (01/31/25) History of hysterectomy RYLAN History of tooth extraction History of cholecystectomy (1984) History of appendectomy History of section (1982) Fusion of spine (2002) L4, L5 ("Failed" per patient) History of cardiac cath 06/2019- no stents 10+ years ago- no stents Family History Uncle Colon cancer Sister Breast cancer Aunt Breast cancer Stomach cancer Family/Other Prostate cancer maternal cousin Family/Other Breast cancer Father Heart disease Denies family history of Ovarian cancer Social History Smoking Status: Never smoker Tobacco Type: Cigarettes packs per day: 1; Second Hand Exposure: No; Do You Dip or Chew Tobacco: No; Hx Alcohol Use: Yes Alcohol type: beer and hard liquor Alcohol Intake Frequency: 2-3 x/Week Preferred Language: Faroese Communication Ability: 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 Beliefs That Will Affect Care: None marital status: Current Living Situation: Spouse current occupational status: retired How many Children do You have: 1 Feels Safe at Home: Yes Diet: regular during the past year weight has: decreased > 10 lbs Assistive Devices: None Allergies Allergies Allergy/AdvReac Type Severity Reaction Status Date / Time aspirin AdvReac Mild Severe Verified 02/13/25 10:18 stomach pain cephalexin AdvReac Mild GI symptoms Verified 02/13/25 10:18 codeine AdvReac Mild Severe Verified 02/13/25 10:18 stomach pain NSAIDS (Non-Steroidal AdvReac Mild Stomach Verified 02/13/25 10:18 Anti-Inflamma pain Home Meds Home Medications Medication Instructions Recorded Confirmed calcium carbonate 1,000 1 tab PO BID PRN Stomach Upset 06/28/19 02/21/25 mg-simethicone 60 mg chewable tablet (Maalox Advanced) docusate sodium 100 mg capsule 100 mg PO HS 06/28/19 02/21/25 levothyroxine 75 mcg tablet 75 mcg PO DAILYBB 11/23/20 02/21/25 tamsulosin 0.4 mg capsule 0.4 mg PO QAM 06/25/24 02/21/25 baclofen 10 mg tablet 10 mg PO BID PRN muscle spasms 01/29/25 02/21/25 baclofen 10 mg tablet 10 mg PO HS 01/29/25 02/21/25 buspirone 15 mg tablet 15 mg PO BID 01/29/25 02/21/25 cetirizine 10 mg tablet (Zyrtec) 10 mg PO HS 01/29/25 02/21/25 famotidine 20 mg tablet 20 mg PO BID 01/29/25 02/21/25 gabapentin 100 mg capsule 100 mg PO TID PRN back/nerve pain 01/29/25 02/21/25 gabapentin 600 mg tablet 1,200 mg PO HS 01/29/25 02/21/25 gabapentin 600 mg tablet 600 mg PO QAM 01/29/25 02/21/25 hyoscyamine sulfate 0.125 mg tablet 0.125 mg PO TID PRN Spasms 01/29/25 02/21/25 lubiprostone 24 mcg capsule 24 mcg PO BID 01/29/25 02/21/25 pantoprazole 40 mg tablet,delayed 40 mg PO BID 01/29/25 02/21/25 release rosuvastatin 10 mg tablet 5 mg PO HS 01/29/25 02/21/25 tramadol 50 mg tablet 50 - 100 mg PO Q6 PRN Pain 01/29/25 02/21/25 trazodone 100 mg tablet 200 mg PO HS 01/29/25 02/21/25 Previous Rx's Medication Instructions Recorded ondansetron 4 mg disintegrating 4 mg PO Q6H PRN nausea and 02/03/25 tablet vomiting #14 tabs nitrofurantoin 100 mg PO BID 7 days #14 caps 02/19/25 monohydrate/macrocrystals 100 mg capsule (Macrobid) oxycodone 5 mg tablet 5 mg PO Q6H PRN pain #12 tabs 02/19/25 Results & Data (ED) Vital Signs Vital Signs - 24 hr 02/21/25 14:56 02/21/25 15:06 02/21/25 15:06 Temperature 36.7 C Temperature Source Temporal Artery Scan Pulse Rate 91 H 87 Pulse Rate [Apical] Pulse Rate from SpO2 Sensor 86 Respiratory Rate 18 14 Respiratory Effort / Characteristics Non-Labored Spontaneous Respiratory Depth Normal Respiratory Pattern Regular Blood Pressure 149/71 H 159/76 H Blood Pressure [Right Arm] Blood Pressure Mean 97 100 Blood Pressure Mean [Right Arm] Blood Pressure Position Sitting Blood Pressure Position [Right Arm] Pulse Oximetry 97 97 Oxygen Delivery Method Room Air Sepsis Recent Fever Within 48 Hours No Sepsis New/Unexplained Change in Mental Status No Sepsis Action Taken by Nursing No Action Required 02/21/25 15:06 02/21/25 15:14 02/21/25 15:57 Temperature Temperature Source Pulse Rate 91 H 82 Pulse Rate [Apical] Pulse Rate from SpO2 Sensor 82 Respiratory Rate 15 Respiratory Effort / Characteristics Respiratory Depth Respiratory Pattern Blood Pressure 159/76 H Blood Pressure [Right Arm] Blood Pressure Mean 100 Blood Pressure Mean [Right Arm] Blood Pressure Position Blood Pressure Position [Right Arm] Pulse Oximetry 94 Oxygen Delivery Method Sepsis Recent Fever Within 48 Hours Sepsis New/Unexplained Change in Mental Status Sepsis Action Taken by Nursing 02/21/25 15:58 02/21/25 15:58 02/21/25 16:03 Temperature Temperature Source Pulse Rate 79 Pulse Rate [Apical] 79 Pulse Rate from SpO2 Sensor 79 Respiratory Rate 20 18 Respiratory Effort / Characteristics Non-Labored Spontaneous Respiratory Depth Normal Respiratory Pattern Regular Blood Pressure Blood Pressure [Right Arm] 159/76 H Blood Pressure Mean Blood Pressure Mean [Right Arm] 103 Blood Pressure Position Blood Pressure Position [Right Arm] Semi-fowlers Pulse Oximetry 96 96 98 Oxygen Delivery Method Room Air Room Air Sepsis Recent Fever Within 48 Hours Sepsis New/Unexplained Change in Mental Status Sepsis Action Taken by Nursing 02/21/25 16:39 02/21/25 16:51 02/21/25 17:19 Temperature Temperature Source Pulse Rate 67 67 Pulse Rate [Apical] 67 Pulse Rate from SpO2 Sensor 68 68 Respiratory Rate 18 14 16 Respiratory Effort / Characteristics Non-Labored Spontaneous Respiratory Depth Normal Respiratory Pattern Regular Blood Pressure Blood Pressure [Right Arm] 149/77 H Blood Pressure Mean Blood Pressure Mean [Right Arm] 101 Blood Pressure Position Blood Pressure Position [Right Arm] Semi-fowlers Pulse Oximetry 96 98 99 Oxygen Delivery Method Room Air Sepsis Recent Fever Within 48 Hours Sepsis New/Unexplained Change in Mental Status Sepsis Action Taken by Nursing 02/21/25 17:19 02/21/25 17:21 02/21/25 17:30 Temperature Temperature Source Pulse Rate 79 69 Pulse Rate [Apical] Pulse Rate from SpO2 Sensor 78 69 Respiratory Rate 19 16 Respiratory Effort / Characteristics Respiratory Depth Respiratory Pattern Blood Pressure 149/77 H Blood Pressure [Right Arm] Blood Pressure Mean 94 Blood Pressure Mean [Right Arm] Blood Pressure Position Blood Pressure Position [Right Arm] Pulse Oximetry 98 96 Oxygen Delivery Method Sepsis Recent Fever Within 48 Hours Sepsis New/Unexplained Change in Mental Status Sepsis Action Taken by Nursing 02/21/25 17:42 02/21/25 18:00 02/21/25 18:12 Temperature Temperature Source Pulse Rate 67 71 Pulse Rate [Apical] Pulse Rate from SpO2 Sensor 68 71 Respiratory Rate 18 18 Respiratory Effort / Characteristics Respiratory Depth Respiratory Pattern Blood Pressure 148/83 H Blood Pressure [Right Arm] Blood Pressure Mean 116 Blood Pressure Mean [Right Arm] Blood Pressure Position Blood Pressure Position [Right Arm] Pulse Oximetry 99 98 Oxygen Delivery Method Sepsis Recent Fever Within 48 Hours Sepsis New/Unexplained Change in Mental Status Sepsis Action Taken by Nursing 02/21/25 18:51 02/21/25 18:59 02/21/25 19:00 Temperature Temperature Source Pulse Rate 67 69 Pulse Rate [Apical] Pulse Rate from SpO2 Sensor 66 Respiratory Rate 17 Respiratory Effort / Characteristics Respiratory Depth Respiratory Pattern Blood Pressure 137/104 H Blood Pressure [Right Arm] Blood Pressure Mean 108 Blood Pressure Mean [Right Arm] Blood Pressure Position Blood Pressure Position [Right Arm] Pulse Oximetry 98 Oxygen Delivery Method Sepsis Recent Fever Within 48 Hours Sepsis New/Unexplained Change in Mental Status Sepsis Action Taken by Nursing 02/21/25 19:12 Temperature Temperature Source Pulse Rate 78 Pulse Rate [Apical] Pulse Rate from SpO2 Sensor 77 Respiratory Rate 20 Respiratory Effort / Characteristics Respiratory Depth Respiratory Pattern Blood Pressure Blood Pressure [Right Arm] Blood Pressure Mean Blood Pressure Mean [Right Arm] Blood Pressure Position Blood Pressure Position [Right Arm] Pulse Oximetry 98 Oxygen Delivery Method Sepsis Recent Fever Within 48 Hours Sepsis New/Unexplained Change in Mental Status Sepsis Action Taken by Nursing Laboratory Data 02/21/25 15:50 02/21/25 15:50 Lab Results 02/21/25 02/21/25 02/21/25 Range/Units 15:34 15:50 17:51 WBC 7.04 (4.8-10.8) K/ul RBC 4.08 L (4.20-5.40) M/uL Hgb 12.2 (12.0-16.0) g/dl Hct 34.5 L (37.0-47.0) % MCV 84.6 (80.0-100.0) fL MCH 29.9 (25.0-34.0) pg MCHC 35.4 (32.0-36.0) g/dL RDW Std Deviation 41.2 (36.4-46.3) fL RDW Coeff of Melani 13.3 (11.5-14.5) % Plt Count 283 (130-400) K/uL MPV 11.1 (9.4-12.4) fL Immature Gran % (Auto) 0.4 % Neut % (Auto) 72.9 % Lymph % (Auto) 14.2 % [place] % (Auto) 10.4 % Eos % (Auto) 1.7 % Baso % (Auto) 0.4 % Neut # (Auto) 5.13 (1.40-6.50) K/uL Lymph # (Auto) 1.00 L (1.20-3.40) K/uL [place] # (Auto) 0.73 H (0.11-0.59) K/uL Eos # (Auto) 0.12 (0.00-0.50) K/uL Baso # (Auto) 0.03 (0.00-0.20) K/uL Immature Gran # (Auto) 0.03 (0.01-0.20) K/uL Sodium 137 (136-145) mmol/L Potassium 3.8 (3.5-5.1) mmol/L Chloride 101 (98-107) mmol/L Carbon Dioxide 27 (21-32) mmol/L Anion Gap 9 (3-11) BUN 5 L (6-23) mg/dl Creatinine 0.73 (0.6-1.2) mg/dl Est Cr Clr Drug Dosing 74.5 ml/min eGFR 89.52 BUN/Creatinine Ratio 6.8 L (10-20) Glucose 118 H (70-99(Fasting)) mg/dl Lactate 0.8 (0.4-2.0) mmol/L Calcium 8.9 (8.6-10.3) mg/dl Total Bilirubin 0.5 (0.2-1.0) mg/dl AST 63 H (13-39) U/L ALT 30 (7-52) U/L Alkaline Phosphatase 131 H (34-104) U/L Total Protein 7.1 (6.0-8.3) gm/dl Albumin 3.7 (3.4-5.0) gm/dl Globulin 3.4 (2.5-4.0) gm/dl Albumin/Globulin Ratio 1.1 (0.9-2) Lipase 11 (11-82) U/L Urine Color Yellow Urine Appearance Clear (Clear) Urine pH 6.5 (4.5-7.5) Ur Specific [place] 1.006 (1.000-1.030) Urine Protein Negative (Negative) Urine Glucose (UA) Negative (Negative) Urine Ketones 1+ H (Negative) Urine Blood Negative (Negative) Urine Nitrite Negative (Negative) Urine Bilirubin Negative (Negative) Urine Urobilinogen Negative (Negative) Ur Leukocyte Esterase Trace H (Negative) Urine WBC (Auto) 0-5 (0-5) /hpf Urine RBC (Auto) 0-2 (0-2) /hpf U Hyaline Cast (Auto) 0-2 (0-2) /lpf U Epithel Cells (Auto) 6-10 H (0-2) /hpf Urine Bacteria (Auto) None Seen (None Seen) Urine Comment SARS-CoV-2, RNA, NAAT NEGATIVE (NEGATIVE) Administered Medications Discontinued Medications Sodium Chloride (Nss) 1,000 mls @ 999 mls/hr IV .Q1H1M STA Stop: 02/21/25 16:06 Last Infusion: 02/21/25 17:14 Dose: Infused Documented By: Admin: 02/21/25 16:03 Dose: 999 mls/hr Documented By: ALEJANDRO Acetaminophen (Ofirmev) 1,000 mg in 100 mls @ 400 mls/hr IV NOW STA Stop: 02/21/25 15:20 Last Infusion: 02/21/25 17:14 Dose: Infused Documented By: Admin: 02/21/25 16:03 Dose: 400 mls/hr Documented By: ALEJANDRO Ioversol (Optiray 320 100ml) 94 ml IV ONCE ONE Stop: 02/21/25 17:20 Last Admin: 02/21/25 17:19 Dose: 94 ml Documented By: ELIZABETH Morphine Sulfate (Morphine Sulfate 4 Mg/Ml 1 Ml Carp\\Vial) 4 mg IV NOW STA Stop: 02/21/25 19:32 Last Admin: 02/21/25 19:52 Dose: Not Given Documented By: ALEJANDRO Ondansetron HCl (Ondansetron Inj 2 Mg/Ml 2 Ml Vial) 4 mg IV NOW STA Stop: 02/21/25 19:32 Last Admin: 02/21/25 19:52 Dose: 4 mg Documented By: ALEJANDRO Imaging Data Radiologist's Impression: Abdomen/Pelvis CT 02/21/25 15:07 Clinical History: Pain and fever Technique: Axial computed tomography images were obtained of the abdomen and pelvis after the administration of intravenous contrast. Comparison is made to the prior CT dated 02/03/2025 Findings: The liver is overall of normal size, attenuation, and contour with no sign of cirrhosis or significant fatty infiltration. There are 3 new wedge-shaped low attenuation areas within the liver. There are several small 2-3 mm cysts in the right hepatic lobe. No definite liver mass lesion is seen. The portal vein is patent. The gallbladder has been removed. There is mild bile duct dilatation that may be due to the post cholecystectomy state. The spleen is of normal size. No focal splenic lesion is evident. The pancreas appears normal with no sign of acute or chronic pancreatitis and no mass lesion noted. The pancreatic duct is of normal caliber. The adrenal glands appear unremarkable. No definite renal or proximal ureteral calculi are seen on this contrast-enhanced study. There is no hydronephrosis or perinephric stranding. No renal mass lesion is identified. The aorta is of normal caliber. No abdominal adenopathy is seen. There is a small hiatal hernia. There is no sign of small bowel obstruction. There are anastomotic sutures of the sigmoid colon. No free intraperitoneal fluid or air is identified. The appendix has been removed No distal ureteral or bladder calculi are seen. No bladder mass lesion is evident. There is a small pocket of air within the urinary bladder that may be due to recent catheterization. The iliac arteries are of normal caliber. No pelvic adenopathy is noted. The uterus has been removed The lungs bases appear clear. Lumbar scoliosis and degenerative disc disease is seen. No fracture is identified. No focal osseous lesion is seen Impression: 1. New wedge-shaped low attenuation areas within the liver that could be due to infarcts 2. Small hepatic cysts 3. Small hiatal hernia ACT 112: Positive. There are findings on this exam that require communication between the performing entity and the patient following Patient Test Result Information Act ([place] ACT 112) guidelines. Electronically signed by Panda Aggarwal 02-21-2025 6:56 PM Discharge Plan Visit Data Chief Complaint: Abdominal Pain Stated Complaint: FEVER, BACK PAIN, PAIN AT INCISION, HX COLON SURG ED Provider: Leandra Schultz Discharge Problem: Fever postop, Abdominal pain, Infarct of liver Patient Disposition: Admitted As Inpatient Condition: Fair Forms Stand Alone Forms: [facility] Prescriptions Prescriptions: No Action docusate sodium 100 mg Capsule 100 mg PO HS Maalox Advanced 1,000-60 mg Tablet,Chewable 1 tab PO BID PRN (Reason: Stomach Upset) levothyroxine 75 mcg tablet 75 mcg PO DAILYBB ondansetron 4 mg tablet,disintegrating 4 mg PO Q6H PRN (Reason: nausea and vomiting) Qty: 14 0RF tamsulosin 0.4 mg capsule 0.4 mg PO QAM buspirone 15 mg tablet 15 mg PO BID trazodone 100 mg tablet 200 mg PO HS lubiprostone 24 mcg capsule 24 mcg PO BID baclofen 10 mg tablet 10 mg PO HS pantoprazole 40 mg tablet,delayed release (DR/EC) 40 mg PO BID hyoscyamine sulfate 0.125 mg tablet 0.125 mg PO TID PRN (Reason: Spasms) Rx Instructions: definately uses 1 every bedtime tramadol 50 mg tablet 50 - 100 mg PO Q6 PRN (Reason: Pain) Hold Instructions: Resume on 02/28/25. Hold until you are done with your Oxycodone rosuvastatin 10 mg tablet 5 mg PO HS gabapentin 600 mg tablet 1,200 mg PO HS gabapentin 100 mg capsule 100 mg PO TID PRN (Reason: back/nerve pain) gabapentin 600 mg tablet 600 mg PO QAM famotidine 20 mg Tablet 20 mg PO BID baclofen 10 mg tablet 10 mg PO BID PRN (Reason: muscle spasms) cetirizine [Zyrtec] 10 mg Tablet 10 mg PO HS oxycodone 5 mg tablet 5 mg PO Q6H PRN (Reason: pain) Qty: 12 0RF Rx Instructions: Initial therapy post surgery nitrofurantoin monohyd/m-cryst [Macrobid] 100 mg capsule 100 mg PO BID 7 Days Qty: 14 0RF Rx Instructions: must administer with a meal/food Referrals Referrals: Na Faria MD [Primary Care Provider] -
--- NOTE | 2025-02-21 15:54 | Surgery Consultation ---
Date of Consultation February 21, 2025 Assessment & Plan (1) S/P laparoscopic colectomy: This is a 69yF with a PMH of HTN, GERD, fibromyalgia, with recent history of sigmoid volvulus now s/p elective sigmoid colon resection with Dr. Vicente on 02/13. The patient was discharged to home on 02/19 without event. Unfortunately patient developed some low grade temps yesterday now up to 103F today associated with some intermittent LLQ pain that radiates into her back. She is not getting significant relief from the pain despite pain medications. After discussion with our office it was encouraged she come into the ER for further evaluation. In the ER patient's vital signs are stable with Temp 98.1F, HR 91, BP 149/71 and saturating in the 90s on room air. On examination her abdomen is soft with tenderness to palpation over the LLQ and LLQ incision that radiates into her left lower back. Her incisions are all c/d/i without signs of infection. The is some mild firmness under her LLQ incision likely 2/2 to fascial/muscle closure underneath. In regards to her calf I do not appreciate significant swelling comp ared to the R side. It is reassuring that she has been tolerating a diet without nausea/vomiting and having + bowel function in terms of both flatus and BMs. We agree the fevers and pain need to be worked up. Labs are currently pending along with a CT a/p for further evaluation. She also has a L lower extremity venous doppler pending to rule out DVT. We will follow up on the results of her workup and provide further recommendations once we have more information. History of Present Illness History of Present Illness This is a 69yF with a PMH of HTN, GERD, fibromyalgia, with recent history of sigmoid volvulus now s/p elective sigmoid colon resection with Dr. Vicente on 02/13. The patient's post operative course was fairly straight forward and as she starting having + bowel function her diet was advanced as tolerated and she was discharged to home without event on 02/19. The patient states she was doing well and eating/drinking without nausea/vomiting, + bowel function, and has had decent energy. Unfortunately yesterday she had a low grade temp to 100F and developed intermittent left sided lower abdominal pain radiating into her back. Her pain continued into today and she took her temperature on two separate occasions that was 100F early on and then 103F at noon. She has been taking her pain meds but despite them the pain is breaking through. Given her fever and pain she called our office and was encouraged to come to the ER for further evaluation. The patient tells me she has been eating without issues and around 1:30pm today had some leftover spam, noodles, and vegetables she had from dinner last night. She has required miralax since discharge and was able to have 2 BMs yesterday and reported another 2 BMs this AM. She continues to pass flatus. She denies chest pain/SOB, chills, blood in BMs, or issues with voiding. She has some abdominal spasms now and again but states this pain feels different. She was concerned for UTI during her last admission and was discharged home on macrobid and states she has been feeling well from a urinary standpoint. She denies history of kidney stones. She also tells me that she has had some left lower calf pain/throbbing today. Allergies Allergy/AdvReac Type Severity Reaction Status Date / Time aspirin AdvReac Mild Severe Verified 02/13/25 10:18 stomach pain cephalexin AdvReac Mild GI symptoms Verified 02/13/25 10:18 codeine AdvReac Mild Severe Verified 02/13/25 10:18 stomach pain NSAIDS (Non-Steroidal AdvReac Mild Stomach Verified 02/13/25 10:18 Anti-Inflamma pain Home Medications Medication Instructions Recorded Confirmed Type calcium carbonate 1,000 1 tab PO BID PRN Stomach Upset 06/28/19 02/21/25 History mg-simethicone 60 mg chewable tablet (Maalox Advanced) docusate sodium 100 mg capsule 100 mg PO HS 06/28/19 02/21/25 History levothyroxine 75 mcg tablet 75 mcg PO DAILYBB 11/23/20 02/21/25 History tamsulosin 0.4 mg capsule 0.4 mg PO QAM 06/25/24 02/21/25 History baclofen 10 mg tablet 10 mg PO BID PRN muscle spasms 01/29/25 02/21/25 History baclofen 10 mg tablet 10 mg PO HS 01/29/25 02/21/25 History buspirone 15 mg tablet 15 mg PO BID 01/29/25 02/21/25 History cetirizine 10 mg tablet (Zyrtec) 10 mg PO HS 01/29/25 02/21/25 History famotidine 20 mg tablet 20 mg PO BID 01/29/25 02/21/25 History gabapentin 100 mg capsule 100 mg PO TID PRN back/nerve pain 01/29/25 02/21/25 History gabapentin 600 mg tablet 1,200 mg PO HS 01/29/25 02/21/25 History gabapentin 600 mg tablet 600 mg PO QAM 01/29/25 02/21/25 History hyoscyamine sulfate 0.125 mg tablet 0.125 mg PO TID PRN Spasms 01/29/25 02/21/25 History lubiprostone 24 mcg capsule 24 mcg PO BID 01/29/25 02/21/25 History pantoprazole 40 mg tablet,delayed 40 mg PO BID 01/29/25 02/21/25 History release rosuvastatin 10 mg tablet 5 mg PO HS 01/29/25 02/21/25 History tramadol 50 mg tablet 50 - 100 mg PO Q6 PRN Pain 01/29/25 02/21/25 History trazodone 100 mg tablet 200 mg PO HS 01/29/25 02/21/25 History ondansetron 4 mg disintegrating 4 mg PO Q6H PRN nausea and 02/03/25 02/21/25 Rx tablet vomiting #14 tabs nitrofurantoin 100 mg PO BID 7 days #14 caps 02/19/25 02/21/25 Rx monohydrate/macrocrystals 100 mg capsule (Macrobid) oxycodone 5 mg tablet 5 mg PO Q6H PRN pain #12 tabs 02/19/25 02/21/25 Rx Patient History Medical History CAD (coronary artery disease) 2019 cath: Mild to moderate nonobstructive CAD- 40-50% proximal ramus, 20-30% proximal first diagonal Medical management recommended Atypical chest pain Chronic constipation Sigmoid volvulus Carpal tunnel syndrome on both sides Deviated nasal septum "Slight" Incomplete bladder emptying [place] [facility] [place] Aortic regurgitation Follows with Dr. Mcguire History of asthma No longer uses inhaler, "resolved" Hx of migraines Gets botox, last injection 01/2025, no longer gets headaches Medical marijuana use THC cream on painful hands Anxiety and depression Spinal stenosis Peripheral neuropathy Chronic back pain Barretts esophagus Fibromyalgia History of stomach ulcers GERD (gastroesophageal reflux disease) IBS (irritable bowel syndrome) Hypothyroidism Hyperlipidemia Hypertension Surgical History H/O colectomy (02/13/25) Laparoscopic Sigmoid Colectomy, enterolysis- Emanuel Vicente DO History of carpal tunnel surgery of left wrist Hx of bilateral oophorectomy Hx of cystoscopy Hx of arthroscopy of right knee Hx of lumbar discectomy (1996) History of tonsillectomy and adenoidectomy Status post epidural steroid injection multiple Family history of reaction to anesthesia Brother- nausea History of dilatation and curettage History of bilateral tubal ligation History of esophagogastroduodenoscopy (EGD) History of laparoscopy History of colonoscopy (01/31/25) History of hysterectomy RYLAN History of tooth extraction History of cholecystectomy (1984) History of appendectomy History of section (1982) Fusion of spine (2002) L4, L5 ("Failed" per patient) History of cardiac cath 06/2019- no stents 10+ years ago- no stents Family History Uncle Colon cancer Sister Breast cancer Aunt Breast cancer Stomach cancer Family/Other Prostate cancer maternal cousin Family/Other Breast cancer Father Heart disease Denies family history of Ovarian cancer Social History Smoking Status: Former smoker Tobacco Type: Cigarettes packs per day: 1; Second Hand Exposure: No; Do You Dip or Chew Tobacco: No; Hx Alcohol Use: Yes Alcohol type: beer and wine Alcohol Intake Frequency: 2-3 x/Week Hx Substance Use: No Preferred Language: Spanish Communication Ability: Effective Batch Unit Treater Required: No Beliefs That Will Affect Care: None marital status: Current Living Situation: Spouse Current Living Situation Comment: home with current occupational status: retired How many Children do You have: 1 Other Information That Helps Us Care for You: No Feels Safe at Home: Yes Safety Concerns: Feels Safe At This Time Diet: regular during the past year weight has: decreased > 10 lbs Assistive Devices: None Review of Systems Constitutional: + fever; no chills, no fatigue and no an orexia Respiratory: no dyspnea Cardiovascular: no chest pain Gastrointestinal: + abdominal pain (left lower abdomen rad iating into the L lower back); no nausea, no vomiting, no change in bowel habits and no blood in stools Genitourinary: no problem reported Musculoskeletal: + left calf pain Physical Exam Physical Exam: awake/alert, no distress Respiratory: normal respiratory effort Gastrointestinal (Abdomen): Inspection/Auscultation: + abdominal surgical incision (incisions are c/d/i with dermabond.no signs of infection. ); abdomen not distended Percussion/Palpation: + abdomen tender (tender to palpation over & around LLQ ) and abdomen soft; no guarding mild ecchymosis of LLQ incision Musculoskeletal: some discomfort to palpation of left calf. no significant swelling noted Results & Data Vital Signs (Past 12 Hours) Vital Signs Temp Pulse Resp BP Pulse Ox O2 Del Method 02/21/25 15:14 91 H 02/21/25 14:56 98.1 F 91 H 18 149/71 H 97 Room Air PG Care Time/CCT Total # of Minutes Spent Total Time Spent with Patient: Total time spent is greater than 50% in coordination of care (as documented) at patient's floor/unit and/or counseling patient: Coding Level of Care Code None Diagnoses S/P laparoscopic colectomy Z90.49
[2025-02-21] MEDS: ACETAMINOPHEN 1,000 MG/100 ML VIAL IV STA (16:03)
[2025-02-21] MEDS: SODIUM CHLORIDE 0.9% 1,000 ML IV STA (16:03)
[2025-02-21 16:29] LABS: Appearance Urine Clear (Clear); Bacteria Urine Automated None Seen (None Seen); Cast Urine Automated 0-2 /lpf (0-2); Glucose Urine UA Negative (Negative); RBC Urine Automated 0-2 /hpf (0-2); WBC Urine Automated 0-5 /hpf (0-5)
[2025-02-21 16:30] LABS: Alanine Aminotransferase 30.0 U/L (7-52); Albumin Globulin Ratio 1.1 (0.9-2); Alkaline Phosphatase 131.0 U/L (34-104); Anion Gap 9.0 (3-11); Bilirubin,Total 0.5 mg/dl (0.2-1.0); Blood Urea Nitrogen 5.0 mg/dl (6-23); Calcium 8.9 mg/dl (8.6-10.3); Carbon Dioxide 27.0 mmol/L (21-32); Chloride 101.0 mmol/L (98-107); Creatinine Clr Calc Pharmacy 74.5 ml/min; Globulin 3.4 gm/dl (2.5-4.0); Glucose 118.0 mg/dl (70-99(Fasting)); Lipase 11.0 U/L (11-82); Potassium 3.8 mmol/L (3.5-5.1); Sodium 137.0 mmol/L (136-145); Total Protein 7.1 gm/dl (6.0-8.3)
[2025-02-21] MEDS: OPTIRAY 320 100ml IV ONE (17:19)
[2025-02-21 18:47] LABS: Hematocrit (blood only) 34.5 % (37.0-47.0); Hemoglobin 12.2 g/dl (12.0-16.0); Immature Granulocytes # (auto) 0.03 K/uL (0.01-0.20); Immature Granulocytes % (auto) 0.4 %; Mean Corpuscular Hemoglobin 29.9 pg (25.0-34.0); Mean Corpuscular Volume 84.6 fL (80.0-100.0); Platelet Count 283 K/uL (130-400); RDW Standard Deviation 41.2 fL (36.4-46.3); Red Blood Count 4.08 M/uL (4.20-5.40); White Blood Count 7.04 K/ul (4.8-10.8)
--- NOTE | 2025-02-21 18:57 | CT Scan Report ---
Clinical History: Pain and fever Technique: Axial computed tomography images were obtained of the abdomen and pelvis after the administration of intravenous contrast. Comparison is made to the prior CT dated 02/03/2025 Findings: The liver is overall of normal size, attenuation, and contour with no sign of cirrhosis or significant fatty infiltration. There are 3 new wedge-shaped low attenuation areas within the liver. There are several small 2-3 mm cysts in the right hepatic lobe. No definite liver mass lesion is seen. The portal vein is patent. The gallbladder has been removed. There is mild bile duct dilatation that may be due to the post cholecystectomy state. The spleen is of normal size. No focal splenic lesion is evident. The pancreas appears normal with no sign of acute or chronic pancreatitis and no mass lesion noted. The pancreatic duct is of normal caliber. The adrenal glands appear unremarkable. No definite renal or proximal ureteral calculi are seen on this contrast-enhanced study. There is no hydronephrosis or perinephric stranding. No renal mass lesion is identified. The aorta is of normal caliber. No abdominal adenopathy is seen. There is a small hiatal hernia. There is no sign of small bowel obstruction. There are anastomotic sutures of the sigmoid colon. No free intraperitoneal fluid or air is identified. The appendix has been removed No distal ureteral or bladder calculi are seen. No bladder mass lesion is evident. There is a small pocket of air within the urinary bladder that may be due to recent catheterization. The iliac arteries are of normal caliber. No pelvic adenopathy is noted. The uterus has been removed The lungs bases appear clear. Lumbar scoliosis and degenerative disc disease is seen. No fracture is identified. No focal osseous lesion is seen Impression: 1. New wedge-shaped low attenuation areas within the liver that could be due to infarcts 2. Small hepatic cysts 3. Small hiatal hernia ACT 112: Positive. There are findings on this exam that require communication between the performing entity and the patient following Patient Test Result Information Act ([place] ACT 112) guidelines. Electronically signed by Panda Aggarwal 02-21-2025 6:56 PM
[2025-02-21] MEDS: MoRPHine SULFATE 4 MG/ML 1 ML CARP\\VIAL IV STA (19:52)
[2025-02-21] MEDS: ONDANSETRON INJ 2 MG/ML 2 ML VIAL IV STA (19:52)
[2025-02-21] MEDS: HYDROmorphone INJ 0.5 MG/0.5 ML SYR IV STA (20:47)
[2025-02-21] MEDS ORDERED: HYDROmorphone INJ 0.5 MG/0.5 ML SYR IV PRN (21:28)
--- NOTE | 2025-02-21 21:34 | History & Physical Report ---
Date of Service February 21, 2025 Assessment & Plan (1) Abdominal pain: (2) Fever postop: (3) Pain of left calf: Plan 69-year-old PMHx HTN, GERD, FM, and recent history of sigmoid volvulus s/p laparoscopic colectomy (elective sigmoid colon resection, 02/13) presenting for onset of low-grade fevers starting day [employer]. Had developed low-grade fever 100 F with intermittent LLQ abdominal pain radiating into her back. Pt states that she has been healing well since her surgery. 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 Reports that her normal body temp runs lower than this at her baseline, around 96-97 F. She also developed LLQ abdominal pain that started to radiate to her lower back, describing it as a throbbing pain that was a 4-5/10 on the pain scale with an occasional pinching pain that would be a 7/10 on the pain scale. Her present pain is in these same areas, rated a 2-3/10. The morning of arrival she took her temp at 0700 and reports that it was 98F. She continued to have the abdominal pain however. Around 1100 she took her temperature again and it was 100F. Again, at 1200, her temp jumped to 103F. She also admits to L calf tenderness that started the day of arrival. She denies prior clots. She does sometimes have difficulty with swallowing, admitting to history of GERD and Pugh's esophagus. Denies chest pain, SOB, palpitations, N/V/D/C, chills, numbness/tingling, weakness, or syncope. ED evaluation reveals CBC without leukocytosis, H&H 12.2/34.5; CMP BUN 5, ratio 6.8, glucose 118, AST 63, alkaline phosphatase 131; lactate 0.8; lipase 11; UA without infection; CTAP new wedge-shaped low-attenuation areas within the liver could be due to infarct, small hepatic cyst, small hiatal hernia; venous Dopplers pending.; Provided with 1L NSS, Zofran 4 mg IV, morphine 4 mg IV, hydromorphone 0.5 mg IV, and acetaminophen 1 g IV in ED. #Fever/Abdominal pain S/p laparoscopic colectomy (02/13/2025). Presenting with abdominal pain and fevers. No alternative source of infection suggested at time of admission. Pt was evaluated by general surgery earlier during day of arrival, CTAP was pending at that time. Following CTAP read, personally discussed case with on-call general surgery provider, discussed starting heparin drip for suspected hepatic infarcts. Provided with empiric antibiotics given recent surgical intervention and in presence of fever even without leukocytosis or elevated lactate. CTAP not suggestive of infectious source. No history of Afib. Anticoagulation for suggested infarct and abx for fever, no confirmed source at present. - CBC without leukocytosis, H&H 12.2/34.5; lactate 0.8; COVID-negative -- CBC am - UA without infection - CTAP new wedge-shaped low-attenuation areas within the liver could be due to infarcts, also noted small hepatic cyst and hiatal hernia - Zofran prn N/V - Acetaminophen prn fever/pain, dilaudid prn severe pain - Heparin drip started - continue - Zosyn IV - Doppler portal V pending - Echo pending am - Gen surg consulted -- appreciate input + recs #L calf pain Pain starting in L calf day of arrival. No h/o blood clots; states father had a blood clot "to his heart." - Dopplers pending - On heparin for above #Chronic constipation- Docusate, lubiprostone - continue #Back pain- Baclofen, gabapentin - continue #Psych/Sleep- Buspirone, trazodone - continue #GERD- Famotidine, Pantoprazole #Hypothyroidism- Levothyroxine - continue #HLD- Rosuvastatin - continue #- Tamsulosin, hyoscyamine prn - continue Dispo: Admit, med/tele - monitor for Afib VTE Prophylaxis: Heparin - tx dose This document was dictated utilizing [employer]. Please excuse any grammatical errors that may be secondary to use of this software. Admission and Anticipated Discharge Date Admission Date: 02/21/2025 History of Present Illness Chief Complaint: Abd pain, fever Primary Care Provider: Na Faria MD 69-year-old PMHx HTN, GERD, FM, and recent history of sigmoid volvulus s/p laparoscopic colectomy (elective sigmoid colon resection, 02/13) presenting for onset of low-grade fevers starting day [employer]. Had developed low-grade fever 100 F with intermittent LLQ abdominal pain radiating into her back. Pt states that she has been healing well since her surgery. 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 Reports that her normal body temp runs lower than this at her baseline, around 96-97 F. She also developed LLQ abdominal pain that started to radiate to her lower back, describing it as a throbbing pain that was a 4-5/10 on the pain scale with an occasional pinching pain that would be a 7/10 on the pain scale. Her present pain is in these same areas, rated a 2-3/10. Admits to history of "back problems" at baseline but this was different. The morning of arrival she took her temp at 0700 and reports that it was 98F. She continued to have the abdominal pain however. Around 1100 she took her temperature again and it was 100F. Again, at 1200, her temp jumped to 103F. She also admits to L calf tenderness that started the day of arrival. She denies prior clots. She does sometimes have difficulty with swallowing, admitting to history of GERD and Pugh's esophagus. Denies chest pain, SOB, palpitations, N/V/D/C, chills, numbness/tingling, weakness, or syncope. ED evaluation reveals CBC without leukocytosis, H&H 12.2/34.5; CMP BUN 5, ratio 6.8, glucose 118, AST 63, alkaline phosphatase 131; lactate 0.8; lipase 11; UA without infection; CTAP new wedge- shaped low-attenuation areas within the liver could be due to infarct, small hepatic cyst, small hiatal hernia; venous Dopplers pending.; Provided with 1L NSS, Zofran 4 mg IV, morphine 4 mg IV, hydromorphone 0.5 mg IV, and acetaminophen 1 g IV in ED. Please see Dr. Valera's attestation for adjustments/additions to treatment plan. Allergies Allergy/AdvReac Type Severity Reaction Status Date / Time aspirin AdvReac Mild Severe Verified 02/13/25 10:18 stomach pain cephalexin AdvReac Mild GI symptoms Verified 02/13/25 10:18 codeine AdvReac Mild Severe Verified 02/13/25 10:18 stomach pain NSAIDS (Non-Steroidal AdvReac Mild Stomach Verified 02/13/25 10:18 Anti-Inflamma pain Home Medications Medication Instructions Recorded Confirmed Type calcium carbonate 1,000 1 tab PO BID PRN Stomach Upset 06/28/19 02/21/25 History mg-simethicone 60 mg chewable tablet (Maalox Advanced) docusate sodium 100 mg capsule 100 mg PO HS 06/28/19 02/21/25 History levothyroxine 75 mcg tablet 75 mcg PO DAILYBB 11/23/20 02/21/25 History tamsulosin 0.4 mg capsule 0.4 mg PO QAM 06/25/24 02/21/25 History baclofen 10 mg tablet 10 mg PO BID PRN muscle spasms 01/29/25 02/21/25 History baclofen 10 mg tablet 10 mg PO HS 01/29/25 02/21/25 History buspirone 15 mg tablet 15 mg PO BID 01/29/25 02/21/25 History cetirizine 10 mg tablet (Zyrtec) 10 mg PO HS 01/29/25 02/21/25 History famotidine 20 mg tablet 20 mg PO BID 01/29/25 02/21/25 History gabapentin 100 mg capsule 100 mg PO TID PRN back/nerve pain 01/29/25 02/21/25 History gabapentin 600 mg tablet 1,200 mg PO HS 01/29/25 02/21/25 History gabapentin 600 mg tablet 600 mg PO QAM 01/29/25 02/21/25 History hyoscyamine sulfate 0.125 mg tablet 0.125 mg PO TID PRN Spasms 01/29/25 02/21/25 History lubiprostone 24 mcg capsule 24 mcg PO BID 01/29/25 02/21/25 History pantoprazole 40 mg tablet,delayed 40 mg PO BID 01/29/25 02/21/25 History release rosuvastatin 10 mg tablet 5 mg PO HS 01/29/25 02/21/25 History tramadol 50 mg tablet 50 - 100 mg PO Q6 PRN Pain 01/29/25 02/21/25 History trazodone 100 mg tablet 200 mg PO HS 01/29/25 02/21/25 History ondansetron 4 mg disintegrating 4 mg PO Q6H PRN nausea and 02/03/25 02/21/25 Rx tablet vomiting #14 tabs nitrofurantoin 100 mg PO BID 7 days #14 caps 02/19/25 02/21/25 Rx monohydrate/macrocrystals 100 mg capsule (Macrobid) oxycodone 5 mg tablet 5 mg PO Q6H PRN pain #12 tabs 02/19/25 02/21/25 Rx Past Med/Surg History Problem List (Updated 02/21/25 @ 23:01 by Dyan Harrison PA-C) Pain of left calf Infarct of liver (Acute) Abdominal pain (Acute) Fever postop (Acute) S/P laparoscopic colectomy (02/13/25) Laparoscopic Sigmoid Colectomy, enterolysis- Emanuel Vicente DO Sigmoid volvulus Chronic constipation Abnormal CT scan, sigmoid colon Elevated AFP Ovarian mass, right Encounter for pre-operative examination Right lumbar radiculopathy Hypertension (Acute) Lumbago (Chronic) Hyperlipidemia (Chronic) Esophageal reflux (Chronic) Chondromalacia patellae (Chronic) Benign hypertension (Chronic) Pugh esophagus (Chronic) Fibromyalgia (Chronic) Aortic regurgitation (Chronic) GERD (gastroesophageal reflux disease) (Chronic) Migraine (Chronic) Medical History CAD (coronary artery disease) 2019 cath: Mild to moderate nonobstructive CAD- 40-50% proximal ramus, 20-30% proximal first diagonal Medical management recommended Atypical chest pain Chronic constipation Sigmoid volvulus Carpal tunnel syndrome on both sides Deviated nasal septum "Slight" Incomplete bladder emptying Follows with [facility] Aortic regurgitation Follows with Dr. Mcguire History of asthma No longer uses inhaler, "resolved" Hx of migraines Gets botox, last injection 01/2025, no longer gets headaches Medical marijuana use THC cream on painful hands Anxiety and depression Spinal stenosis Peripheral neuropathy Chronic back pain Barretts esophagus Fibromyalgia History of stomach ulcers GERD (gastroesophageal reflux disease) IBS (irritable bowel syndrome) Hypothyroidism Hyperlipidemia Hypertension Surgical History H/O colectomy (02/13/25) Laparoscopic Sigmoid Colectomy, enterolysis- Emanuel Vicente DO History of carpal tunnel surgery of left wrist Hx of bilateral oophorectomy Hx of cystoscopy Hx of arthroscopy of right knee Hx of lumbar discectomy (1996) History of tonsillectomy and adenoidectomy Status post epidural steroid injection multiple Family history of reaction to anesthesia Brother- nausea History of dilatation and curettage History of bilateral tubal ligation History of esophagogastroduodenoscopy (EGD) History of laparoscopy History of colonoscopy (01/31/25) History of hysterectomy RYLAN History of tooth extraction History of cholecystectomy (1984) History of appendectomy History of section (1982) Fusion of spine (2002) L4, L5 ("Failed" per patient) History of cardiac cath 06/2019- no stents 10+ years ago- no stents Family History Uncle Colon cancer Sister Breast cancer Aunt Breast cancer Stomach cancer Family/Other Prostate cancer maternal cousin Family/Other Breast cancer Father Heart disease Denies family history of Ovarian cancer Social History Smoking Status: Former smoker Tobacco Type: Cigarettes packs per day: 1; Second Hand Exposure: No; Do You Dip or Chew Tobacco: No; Hx Alcohol Use: Yes Alcohol type: beer and wine Alcohol Intake Frequency: 2-3 x/Week Hx Substance Use: No Preferred Language: Barbadian Communication Ability: Effective Beater Boss Required: No Beliefs That Will Affect Care: None marital status: Current Living Situation: Spouse Current Living Situation Comment: home with current occupational status: retired How many Children do You have: 1 Other Information That Helps Us Care for You: No Feels Safe at Home: Yes Safety Concerns: Feels Safe At This Time Diet: regular during the past year weight has: decreased > 10 lbs Assistive Devices: None Review of Systems Review of Systems: All systems reviewed & are unremarkable except as noted in Subjective Physical Exam Physical Exam: General: No acute distress Skin: Warm and dry Head: Normocephalic, atraumatic Eyes: PERRL, conjunctivae clear, sclera non-icteric ENT: External ear and ear canal without swelling; nose atraumatic; good dentition, tongue normal appearance, pharynx normal Neck: Supple, no LAD Cardio: RRR, no M/G/R, S1 and S2 normal Resp: No respiratory distress, Lungs CTA in all lobes bilaterally, no wheezes, rales, or rhonchi Abdomen: Surgical sites healing, some ecchymosis, no erythema/edema; Soft, symmetric, nontender; No masses or hepatosplenomegaly; Bowel sounds normoactive MSK: No deformities; pulses palpable and equal; no edema; tenderness to palpation L calf, not at R calf; no size discrepancy. Neuro: Awake, alert; Sensation intact bilaterally; CN grossly intact Psych: Appropriate mood and affect; good judgement and insight. Results & Data Results & Data Vital Signs (Past 12 Hours) Vital Signs Temp Pulse Pulse Resp BP BP Pulse Ox 02/21/25 20:48 75 20 166/102 H 100 02/21/25 19:12 78 20 98 02/21/25 19:00 137/104 H 02/21/25 18:59 69 02/21/25 18:51 67 17 98 02/21/25 18:12 71 18 98 02/21/25 18:00 148/83 H 02/21/25 17:42 67 18 99 02/21/25 17:30 69 16 96 02/21/25 17:21 79 19 98 02/21/25 17:19 149/77 H 02/21/25 17:19 67 16 149/77 H 99 02/21/25 16:51 67 14 98 02/21/25 16:39 67 18 96 02/21/25 16:03 79 18 98 02/21/25 15:58 96 02/21/25 15:58 79 20 159/76 H 96 02/21/25 15:57 82 15 94 02/21/25 15:14 91 H 02/21/25 15:06 159/76 H 02/21/25 15:06 159/76 H 02/21/25 15:06 87 14 97 02/21/25 14:56 36.7 C 91 H 18 149/71 H 97 O2 Del Method 02/21/25 20:48 Room Air 02/21/25 19:12 02/21/25 19:00 02/21/25 18:59 02/21/25 18:51 02/21/25 18:12 02/21/25 18:00 02/21/25 17:42 02/21/25 17:30 02/21/25 17:21 02/21/25 17:19 02/21/25 17:19 Room Air 02/21/25 16:51 02/21/25 16:39 02/21/25 16:03 02/21/25 15:58 Room Air 02/21/25 15:58 Room Air 02/21/25 15:57 02/21/25 15:14 02/21/25 15:06 02/21/25 15:06 02/21/25 15:06 02/21/25 14:56 Room Air Laboratory Results 02/21/25 02/21/25 02/21/25 17:51 15:50 15:34 WBC 7.04 RBC 4.08 L Hgb 12.2 Hct 34.5 L MCV 84.6 MCH 29.9 MCHC 35.4 RDW Std Deviation 41.2 RDW Coeff of Melani 13.3 Plt Count 283 MPV 11.1 Immature Gran % (Auto) 0.4 Neut % (Auto) 72.9 Lymph % (Auto) 14.2 Winn % (Auto) 10.4 Eos % (Auto) 1.7 Baso % (Auto) 0.4 Neut # (Auto) 5.13 Lymph # (Auto) 1.00 L Winn # (Auto) 0.73 H Eos # (Auto) 0.12 Baso # (Auto) 0.03 Immature Gran # (Auto) 0.03 Sodium 137 Potassium 3.8 Chloride 101 Carbon Dioxide 27 Anion Gap 9 BUN 5 L Creatinine 0.73 Est Cr Clr Drug Dosing 74.5 eGFR 89.52 BUN/Creatinine Ratio 6.8 L Glucose 118 H Lactate 0.8 Calcium 8.9 Total Bilirubin 0.5 AST 63 H ALT 30 Alkaline Phosphatase 131 H Total Protein 7.1 Albumin 3.7 Globulin 3.4 Albumin/Globulin Ratio 1.1 Lipase 11 Urine Color Yellow Urine Appearance Clear Urine pH 6.5 Ur Specific [place] 1.006 Urine Protein Negative Urine Glucose (UA) Negative Urine Ketones 1+ H Urine Blood Negative Urine Nitrite Negative Urine Bilirubin Negative Urine Urobilinogen Negative Ur Leukocyte Esterase Trace H Urine WBC (Auto) 0-5 Urine RBC (Auto) 0-2 U Hyaline Cast (Auto) 0-2 U Epithel Cells (Auto) 6-10 H Urine Bacteria (Auto) None Seen Urine Comment SARS-CoV-2, RNA, NAAT NEGATIVE Diagnostic Findings Abdomen/Pelvis CT 02/21/25 15:07 Clinical History: Pain and fever Technique: Axial computed tomography images were obtained of the abdomen and pelvis after the administration of intravenous contrast. Comparison is made to the prior CT dated 02/03/2025 Findings: The liver is overall of normal size, attenuation, and contour with no sign of cirrhosis or significant fatty infiltration. There are 3 new wedge-shaped low attenuation areas within the liver. There are several small 2-3 mm cysts in the right hepatic lobe. No definite liver mass lesion is seen. The portal vein is patent. The gallbladder has been removed. There is mild bile duct dilatation that may be due to the post cholecystectomy state. The spleen is of normal size. No focal splenic lesion is evident. The pancreas appears normal with no sign of acute or chronic pancreatitis and no mass lesion noted. The pancreatic duct is of normal caliber. The adrenal glands appear unremarkable. No definite renal or proximal ureteral calculi are seen on this contrast-enhanced study. There is no hydronephrosis or perinephric stranding. No renal mass lesion is identified. The aorta is of normal caliber. No abdominal adenopathy is seen. There is a small hiatal hernia. There is no sign of small bowel obstruction. There are anastomotic sutures of the sigmoid colon. No free intraperitoneal fluid or air is identified. The appendix has been removed No distal ureteral or bladder calculi are seen. No bladder mass lesion is evident. There is a small pocket of air within the urinary bladder that may be due to recent catheterization. The iliac arteries are of normal caliber. No pelvic adenopathy is noted. The uterus has been removed The lungs bases appear clear. Lumbar scoliosis and degenerative disc disease is seen. No fracture is identified. No focal osseous lesion is seen Impression: 1. New wedge-shaped low attenuation areas within the liver that could be due to infarcts 2. Small hepatic cysts 3. Small hiatal hernia ACT 112: Positive. There are findings on this exam that require communication between the performing entity and the patient following Patient Test Result Information Act ([place] ACT 112) guidelines. Electronically signed by Panda Aggarwal 02-21-2025 6:56 PM Code Status & VTE Plan Code Status Full Supervising Physician Co-Signing Physician Notes Attending addendum: I have physically seen this patient, have supervised the PALLAVI's activities, and agree with the H&P unless as otherwise noted. Assessment and Plan: The patient is a 69-year-old female with past medical history including hypertension, GERD, fibromyalgia, with recent history of sigmoid volvulus status post laparoscopic colectomy/sigmoid colon resection on 02/13. The patient presents to the emergency department today with low-grade temperature up to 100 F that began 1 day, with intermittent left lower quadrant abdominal pain rating to her back prior to arrival. Temperature later peaked at 103 F. From the ED she received the following: Normal saline 1 L bolus, Zofran 4 mg IV, morphine 4 mg IV, Dilaudid 0.5 mg IV, and acetaminophen 1 g IV. Workup in the emergency department included a CT scan of abdomen pelvis, which was significant for new wedge-shaped low-attenuation areas within the liver that could be due to infarcts. Patient had been assessed by general surgery in the emergency department, and was [facility], with consult to general surgery. Fever/abdominal pain/suspected hepatic infarcts- Admission to medical telemetry Conversation with on-call general surgery, agreement to start heparin drip. Placed on empiric Zosyn 4.5 g IV every 8 hours Acetaminophen 1 g IV every 8 hours as needed mild pain or fever Dilaudid IV as needed moderate to severe pain Echocardiogram in the a.m. to assess for possible embolic source Normal abdominal/liver duplex ultrasound May need CTA versus MRCP Left calf pain- Lower extremity venous Doppler negative for DVT GERD- Continue pantoprazole and famotidine Chronic back pain- Continue baclofen and gabapentin Psychiatric- Continue buspirone and trazodone Hyperlipidemia- Continue rosuvastatin - Continue tamsulosin Hypothyroidism- Continue levothyroxine Chronic constipation- Continue docusate and lubiprostone PG Care Time/CCT Total # of Minutes Spent Total Time Spent with Patient: Total time spent is greater than 50% in coordination of care (as documented) at patient's floor/unit and/or counseling patient: Coding Level of Care Code 88646 INT INP/OBS CARE 3/75MIN Diagnoses Abdominal pain R10.9 Fever postop R50.82 Pain of left calf M79.662
--- NOTE | 2025-02-21 22:43 | Ultrasound Report ---
Exam(s): US VENOUS LEFT LOWER EXTREMITY EXAM: US Duplex Left Lower Extremity Veins CLINICAL HISTORY: Reason for exam: pain. TECHNIQUE: Real-time duplex ultrasound scan of the left lower extremity veins integrating B-mode two-dimensional vascular structure, Doppler spectral analysis, color flow Doppler imaging and compression. COMPARISON: No relevant prior studies available. FINDINGS: Deep veins: Unremarkable. No DVT in the visualized common femoral, femoral, proximal deep femoral or popliteal veins. The veins demonstrate normal color flow, are normally compressible, with normal phasic flow and/or augmentation response. Superficial veins: No thrombus. Soft tissues: No acute findings. No popliteal cyst. IMPRESSION: No evidence of DVT in the left lower extremity. Electronically signed by: Hong Adams MD 02/21/25 22:42 PM
[2025-02-21] MEDS ORDERED: SIMETHICONE PO PRN (23:30)
[2025-02-21] MEDS ORDERED: [UNRECOGNIZED DRUG - OTHER] PO PRN (23:30)
[2025-02-21] MEDS ORDERED: CALCIUM CARBONATE PO PRN (23:30)
[2025-02-21] MEDS ORDERED: GABAPENTIN 100 MG CAP PO PRN (23:30)
[2025-02-21] MEDS ORDERED: BACLOFEN 10 MG TAB PO PRN (23:30)
[2025-02-21] MEDS ORDERED: ONDANSETRON INJ 2 MG/ML 2 ML VIAL IV PRN (23:30)
[2025-02-21] MEDS ORDERED: MAGNESIUM HYDROXIDE SUSP 30 ML UDC PO PRN (23:30)
[2025-02-21] MEDS ORDERED: ALUMINUM/MAGNESIUM SUSP 30 ML UDC PO PRN (23:30)
[2025-02-21] MEDS: HEPARIN 25000 UNIT/500 ML D5W 25,000 UNITS/500 ML BAG IV SCH (23:40)
[2025-02-21] MEDS: PIPERACILLIN/TAZOBACTAM 4.5 GM/100 ML BAG IV STA (23:40)
--- NOTE | 2025-02-22 00:27 | Ultrasound Report ---
Exam(s): US VASCULAR EXAM: US Duplex Arterial/Venous of the Abdomen, Complete CLINICAL HISTORY: Reason for exam: Hepatic infarct, check hepatic artery. TECHNIQUE: Real-time duplex ultrasound scan of the abdomen integrating B-mode two- dimensional vascular structure, Doppler spectral analysis and color flow Doppler imaging. COMPARISON: No relevant prior studies available. FINDINGS: Portal veins: Unremarkable. Normal hepatopetal flow on color and spectral Doppler imaging. Hepatic arteries: Unremarkable. Normal flow on color and spectral Doppler imaging. Normal resistive indices. Hepatic veins: Unremarkable. Normal flow on color and spectral Doppler imaging. Splenic vein: Unremarkable. Normal flow on color and spectral Doppler imaging. Common bile duct: Abnormally dilated at 1.3 cm. IMPRESSION: Normal abdominal/liver duplex ultrasound. Dilated common bile duct at 1.3 cm. Electronically signed by: Hong Adams MD 02/22/25 00:25 AM
[2025-02-22] MEDS: MELATONIN 3 MG TAB PO PRN (00:42)
[2025-02-22] MEDS: GABAPENTIN 600 MG TAB PO SCH ×2 (00:42→08:13)
[2025-02-22] MEDS: DOCUSATE SODIUM 100 MG CAP PO SCH (00:42)
[2025-02-22] MEDS: LUBIPROSTONE 8 MCG CAP PO SCH (00:42)
[2025-02-22] MEDS: FAMOTIDINE 20 MG TAB PO SCH (00:42)
[2025-02-22] MEDS: busPIRone 15 MG TAB PO SCH (00:43)
[2025-02-22] MEDS: CETIRIZINE HCL 10 MG TABLET PO SCH (00:43)
[2025-02-22] MEDS: ROSUVASTATIN CALCIUM 5 MG TAB PO SCH (00:44)
[2025-02-22] MEDS: LEVOTHYROXINE SODIUM 75 MCG TABLET PO SCH (05:33)
[2025-02-22] MEDS: HYDROmorphone INJ 0.5 MG/0.5 ML SYR IV PRN (05:33)
[2025-02-22] MEDS: PIPERACILLIN/TAZOBACTAM 4.5 GM/100 ML BAG IV SCH (05:38)
[2025-02-22 06:17] LABS: Hematocrit (blood only) 31.5 % (37.0-47.0); Hemoglobin 10.6 g/dl (12.0-16.0); Mean Corpuscular Hemoglobin 28.6 pg (25.0-34.0); Mean Corpuscular Volume 85.1 fL (80.0-100.0); Platelet Count 284 K/uL (130-400); RDW Standard Deviation 42.7 fL (36.4-46.3); Red Blood Count 3.70 M/uL (4.20-5.40); White Blood Count 4.77 K/ul (4.8-10.8)
[2025-02-22 06:38] LABS: Anion Gap 7.0 (3-11); Blood Urea Nitrogen 4.0 mg/dl (6-23); Calcium 8.6 mg/dl (8.6-10.3); Carbon Dioxide 29.0 mmol/L (21-32); Chloride 103.0 mmol/L (98-107); Creatinine Clr Calc Pharmacy 80.9 ml/min; Glucose 100.0 mg/dl (70-99(Fasting)); Potassium 3.3 mmol/L (3.5-5.1); Sodium 139.0 mmol/L (136-145)
[2025-02-22 06:46] LABS: ANTI-Xa, UFH(UnfractionatedHep 0.30 IU/ml (0.3-0.7)
[2025-02-22] MEDS: TAMSULOSIN HCL 0.4 MG CAP PO SCH (08:12)
[2025-02-22 08:13] LABS: Alanine Aminotransferase 82.0 U/L (7-52); Alkaline Phosphatase 282.0 U/L (34-104); Bilirubin,Total 0.5 mg/dl (0.2-1.0); Total Protein 6.1 gm/dl (6.0-8.3)
--- NOTE | 2025-02-22 08:23 | Hospitalist Progress Note ---
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 She developed low-grade fevers at home, Tmax 103 F. Associated LLQ abdominal pain with radiation to her lower back. Also with left calf tenderness that started day of arrival; venous Doppler negative for DVT. CT A/P on admission with new wedge-shaped low- attenuation areas within the liver that could be due to infarcts. Patient had been assessed by general surgery in the emergency department, and was referred for further evaluation and treatment to the [facility], with consult to general surgery. #Fever | Abdominal pain | Liver infarcts | Recent laparoscopic colectomy - S/p laparoscopic colectomy (02/13/2025) performed for history of recent sigmoid vol vulus in the setting of chronic constipation. No alternative source of infection suggested at this time; no leukocytosis, lactate normal, CT A/P not suggestive of infectious source, UA negative, COVID negative. Anticoagulation for suggested infarct and abx for fever given recent surgical intervention, no confirmed source at present. Could potentially have infected hepatic infarcts? - Continue heparin drip for now. Will need PO anticoagulation on discharge - Continue empiric antibiotic with Zosyn 4.5 mg IV every 8 hours - If spikes fever, would get blood cultures - Acetaminophen as needed mild pain/fever, Dilaudid IV as needed moderatesevere pain - Portal vein ultrasound with normal flow but notes a dilated common bile duct at 1.3 cm - this is likely due to postcholecystectomy state - Liver enzymes increasing - likely due to hepatic infarcts - continue to trend - Echocardiogram pending to assess for possible embolic source of hepatic infarcts - pending - Continue to monitor on telemetry for A fib, so far has remained in NSR - Gen surg consulted and following -- appreciate input + recs #Urinary retention - h/o incomplete bladder emptying, initially refused straight or Fernandez cath, but after bladder scan showed 1200 mL of retention, agreed to straight cath. Follows with Urogyn at [facility] - has follow-up appointment in upcoming weeks for procedure. - History of 400+ ml PVR on [facility] urogyn note - Will increase tamsulosin to 0.8 mg daily (previously on 0.4 mg daily) - Continue hyoscyamine prn for bladder spasms - Bladder scan PRN - Urology consulted #Diarrhea - reports history of IBS and is on Amitiza - C. diff negative. Checked prior to giving Imodium given recent hospitalization/antibiotics/fevers - Can use Imodium PRN - Stop Amitiza and hold docusate #Hypokalemia - mild, K 3.3 - Replete with KCl 40 mEq PO - Monitor CMP with AM labs #L calf pain - Venous Doppler negative for DVT #Chronic constipation-having diarrhea-hold home constipation meds #Chronic back pain- Baclofen, gabapentin - continue #Psych/Sleep- Buspirone, trazodone - continue #GERD- Famotidine, Pantoprazole #Hypothyroidism- Levothyroxine - continue. Last TSH in our system from 2019 Check TSH in the morning #HLD- Rosuvastatin - continue Dispo: Continue inpatient stay VTE Prophylaxis: Heparin - tx dose Ordered C diff study Ordered Imodium Consulted urology Increased Flomax Discussed case with gen surg Repleted potassium Admission and Anticipated Discharge Date Admission Date: February 21, 2025 Supervising Physician Co-Signing Physician Notes FUNMI Supervision Note: I did not personally see or examine the patient today, but I verified all mayo points of FUNMI Benjamin's assessment and plan with the following exceptions/additions: None Subjective Patient seen and evaluated in bedside chair. She expresses frustration with her care overnight. Currently, she reports diarrhea and asked for Imodium. We discussed due to her recent hospitalization, antibiotic course, and fevers, I want to rule out C diff before giving her Imodium; she is understanding. She reports ongoing issues with urinary retention and is following with urology at [facility] and is supposed to have a procedure at the end of the month to address her urinary retention. We discussed doubling her dose of Flomax and continuing bladder scans given her significant retention (1200 ml) overnight. We further discussed her treatment plan for hepatic infarcts. Discussed imaging results from admission and pending echocardiogram. 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 She reports mild L LQ pain. Denies any nausea or vomiting. Denies feeling feverish or chilled since being in the hospital. She is well-tolerating her diet. Telemetry reviewed: NSR with PVCs in 60-90s. No A fib. Physical Exam Physical Exam: General: No acute distress, nondiaphoretic, well-developed, well-nourished. Skin: Warm, dry. No rashes or peripheral edema noted. Cardiac: Regular rate and rhythm without murmurs gallops or rubs. Pulm: Clear to auscultation bilaterally without wheezes, rales or rhonchi. Normal respiratory effort. 97% on room air. Abdominal: Soft, nondistended. Mild tenderness to palpation of LLQ. Healing abdominal incision in LLQ, no sign of infection. Mild ecchymosis in LLQ. Bowel sounds present. Neuro: A&O x3. No focal neurological deficits. Results & Data Results & Data Vital Signs (Past 12 Hours) Vital Signs Temp Pulse Pulse Pulse Resp BP Pulse Ox 02/22/25 04:00 98.6 F 69 16 121/69 96 02/22/25 02:41 90 02/22/25 00:15 98.6 F 90 14 170/78 H 98 02/21/25 23:00 98.8 F 81 18 163/82 H 96 02/21/25 20:48 75 20 166/102 H 100 O2 Del Method 02/22/25 04:00 Room Air 02/22/25 02:41 02/22/25 00:15 Room Air 02/21/25 23:00 Room Air 02/21/25 20:48 Room Air Laboratory Results Reviewed CBC with differential Reviewed coags Reviewed CMP Reviewed UA Reviewed quad screen Diagnostic Findings Reviewed CT A/P Reviewed venous Doppler study Reviewed portal vein ultrasound PG Care Time/CCT Total # of Minutes Spent Total Time Spent with Patient: Total time spent is greater than 50% in coordination of care (as documented) at patient's floor/unit and/or counseling patient: Coding Level of Care Code 50343 SUB INP/OBS CARE 3/50MIN Diagnoses Infarct of liver K76.3 Fever postop R50.82 S/P laparoscopic colectomy Z90.49 Abdominal pain R10.9 Pain of left calf M79.662"
[2025-02-22] MEDS ORDERED: FAMOTIDINE 20 MG TAB PO SCH (09:00)
[2025-02-22] MEDS ORDERED: LUBIPROSTONE 8 MCG CAP PO SCH (09:00)
[2025-02-22] MEDS ORDERED: busPIRone 15 MG TAB PO SCH (09:00)
--- NOTE | 2025-02-22 11:48 | Surgery Progress Note ---
Date of Service February 22, 2025 Assessment & Plan (1) Abdominal pain: Plan: Pt is s/p lap sigmoidectomy on 02/[address] galicia here w/ fevers and LLQ pain workup in the ER yesterday revealed no post surgical issues and saw + liver infarcts today wbc 4.7. she is tolerating a diet without n/v portal venous US of liver overall unremarkable outside of CBD measuring 1.3cm. imaging showed no DVT in the L calf on doppler she is currently being anticoagulated on IV hep gtt with hopes to transition to oral blood thinner upon discharge nothing surgically or procedurally to intervene upon from our perspective. may continue diet as tolerates. may f/u with dr. galicia as previously planned appreciate medicines assistance pt would very much like to stop the bladder scans and straight caths as long as she is voiding and not having any urinary complaints. this seems like an ongoing problem for her that she is going to follow up with outpatient urology for. may increase dose of flomax to BID or 0.8mg daily per her request (2) Infarct of liver: Admission and Anticipated Discharge Date Admission Date: February 21, 2025 Subjective Patient doing okay. Still with some intermittent LLQ discomfort. Otherwise expresses frustrations being straight cathed and bladder scanned when she is not having urinary complaints. Physical Exam Physical Exam: awake/alert, no distress Gastrointestinal (Abdomen): Inspection/Auscultation: + abdominal surgical incision (c/d/i, no infection, some bruising to the LLQ incision) Percussion/Palpation: + abdomen tender (LLQ) and abdomen soft Results & Data Vital Signs (Past 12 Hours) Vital Signs Temp Pulse Pulse Resp BP Pulse Ox O2 Del Method 02/22/25 11:24 98.2 F 74 18 114/72 97 Room Air 02/22/25 10:07 71 02/22/25 08:32 99.5 F 69 20 134/69 96 Room Air 02/22/25 04:00 98.6 F 69 16 121/69 96 Room Air 02/22/25 02:41 90 02/22/25 00:15 98.6 F 90 14 170/78 H 98 Room Air PG Care Time/CCT Total # of Minutes Spent Total Time Spent with Patient: Total time spent is greater than 50% in coordination of care (as documented) at patient's floor/unit and/or counseling patient: Coding Level of Care Code None Diagnoses Abdominal pain R10.9 Infarct of liver K76.3
[2025-02-22] MEDS: ACETAMINOPHEN 325 MG TAB PO PRN (12:01)
[2025-02-22 13:27] LABS: Cdiff Toxin B Gene (2yr or >) Negative Cdiff Gene (Neg)
[2025-02-22] MEDS: Heparin IV Adult Wt-Based Standard *NO* INITIAL Bolus Protocol IV STA (14:24)
[2025-02-22] MEDS: LOPERAMIDE HCL 2 MG CAP PO PRN (14:32)
[2025-02-22] MEDS: BACLOFEN 10 MG TAB PO SCH (19:51)
[2025-02-22] MEDS: POTASSIUM CHLORIDE CRTAB 20 MEQ TABCR PO STA (19:52)
[2025-02-22] MEDS ORDERED: GABAPENTIN 600 MG TAB PO SCH (21:00)
[2025-02-22] MEDS ORDERED: ROSUVASTATIN CALCIUM 5 MG TAB PO SCH (21:00)
[2025-02-22] MEDS ORDERED: CETIRIZINE HCL 10 MG TABLET PO SCH (21:00)
[2025-02-22] MEDS ORDERED: DOCUSATE SODIUM 100 MG CAP PO SCH (21:00)
[2025-02-23 06:04] LABS: Hematocrit (blood only) 30.3 % (37.0-47.0); Hemoglobin 10.1 g/dl (12.0-16.0); Mean Corpuscular Hemoglobin 28.9 pg (25.0-34.0); Mean Corpuscular Volume 86.6 fL (80.0-100.0); Platelet Count 304 K/uL (130-400); RDW Standard Deviation 43.7 fL (36.4-46.3); Red Blood Count 3.50 M/uL (4.20-5.40); White Blood Count 4.21 K/ul (4.8-10.8)
[2025-02-23 06:25] LABS: ANTI-Xa, UFH(UnfractionatedHep 0.45 IU/ml (0.3-0.7)
[2025-02-23 06:27] LABS: Alanine Aminotransferase 67.0 U/L (7-52); Albumin Globulin Ratio 1.2 (0.9-2); Alkaline Phosphatase 259.0 U/L (34-104); Anion Gap 3.0 (3-11); Bilirubin,Total 0.3 mg/dl (0.2-1.0); Blood Urea Nitrogen 5.0 mg/dl (6-23); Calcium 8.7 mg/dl (8.6-10.3); Carbon Dioxide 30.0 mmol/L (21-32); Chloride 108.0 mmol/L (98-107); Creatinine Clr Calc Pharmacy 69.8 ml/min; Globulin 2.6 gm/dl (2.5-4.0); Glucose 102.0 mg/dl (70-99(Fasting)); Potassium 4.3 mmol/L (3.5-5.1); Sodium 141.0 mmol/L (136-145); Total Protein 5.7 gm/dl (6.0-8.3)
[2025-02-23 06:36] LABS: Thyroid Stimulating Hormone 0.405 uIu/ml (0.300-4.500)
--- NOTE | 2025-02-23 06:57 | XCELERA ---
[id number]
--- NOTE | 2025-02-23 09:21 | Surgery Progress Note ---
<Statement entered by Bethany Carrillo MD - 02/23/25 13:20> I independently saw the patient and agree with the assessment and plan of care. Date of Service February 23, 2025 Assessment & Plan (1) Abdominal pain: Plan: Pt is s/p lap sigmoidectomy on 02/[address] Vicente admitted w/ fevers and LLQ pain, workup in the ER revealed no post surgical issues and saw some liver infarcts -Patient doing well from a surgical perspective. She is tolerating a diet without any issues, having bowel function, and is afebrile. -Patient hemodynamically stable, continue anticoagulation per primary team -Ok for discharge from a surgical standpoint, will defer to medical team. Patient instructed to have her follow up with Dr. Vicente in the outpatient setting as previously scheduled. -Please call with any questions or cancers (2) Infarct of liver: Admission and Anticipated Discharge Date Admission Date: February 21, 2025 Subjective Patient seen and evaluated this morning, sitting up in the chair during exam, doing well overall VSS and afebrile Tolerating diet without any issues. Patient states she did have some loose bowel movements overnight however this has subsided Physical Exam Constitutional: WD/WN, vitals as above Respiratory: normal respiratory effort, lungs clear to auscultation Cardiovascular: Rate/Rhythm: regular rate Gastrointestinal (Abdomen): Abdomen soft, nondistended, nontender to palpation Surgical sites with Dermabond in place, c/d/i without any signs of infection Skin: no rashes, warm and dry Results & Data Vital Signs (Past 12 Hours) Vital Signs Temp Pulse Pulse Resp BP BP Pulse Ox 02/23/25 08:11 36.8 C 76 20 107/63 98 02/23/25 07:50 61 02/23/25 03:19 36.5 C 55 L 16 110/70 94 02/22/25 23:46 79 02/22/25 23:22 36.8 C 63 16 116/68 96 O2 Del Method 02/23/25 08:11 Room Air 02/23/25 07:50 02/23/25 03:19 Room Air 02/22/25 23:46 02/22/25 23:22 Room Air PG Care Time/CCT Total # of Minutes Spent Total Time Spent with Patient: Total time spent is greater than 50% in coordination of care (as documented) at patient's floor/unit and/or counseling patient: Coding [place] [address] Post Operative Follow-Up Patient Type Established History Problem Focused Exam Problem Focused Medical Decision Making Straight Forward Diagnoses Abdominal pain R10.9 Infarct of liver K76.3
[2025-02-23] MEDS: TAMSULOSIN HCL 0.4 MG CAP PO SCH (09:35)
[2025-02-23] MEDS: HYOSCYAMINE SULFATE 0.125 MG TAB PO PRN (09:37)
--- NOTE | 2025-02-23 09:41 | Urology Consultation ---
Date of Consultation February 23, 2025 Assessment & Plan (1) Urinary retention: Plan Chronic incomplete emptying of her bladdermanaged by urogynecology in [place] Had a straight cath yesterday, really was not particular uncomfortable in this occurred Has been voiding spontaneously since then Overall, her slightly worsening retention was driven by her recent sigmoidectomy I do not believe she requires any additional treatment right now Please call if further issues She already has outpatient follow-up scheduled History of Present Illness Attending Physician: Ginger Jefferson MD History of Present Illness 69-year-old with a long history of incomplete bladder emptying Currently admitted secondary to a variety of other issues including recent lap sigmoidectomy Unable to void yesterday x 1 had a catheter placed She always has performed voiding with a variety of maneuvers including Credeabdominal pressure Was somewhat limited on this secondary to her recent surgery Otherwise she feels that she is emptying well and has been voiding since the catheter was placed She has outpatient follow-up with her urogynecologist in [place] next week Allergies Allergy/AdvReac Type Severity Reaction Status Date / Time aspirin AdvReac Mild Severe Verified 02/13/25 10:18 stomach pain cephalexin AdvReac Mild GI symptoms Verified 02/13/25 10:18 codeine AdvReac Mild Severe Verified 02/13/25 10:18 stomach pain NSAIDS (Non-Steroidal AdvReac Mild Stomach Verified 02/13/25 10:18 Anti-Inflamma pain Home Medications Medication Instructions Recorded Confirmed Type calcium carbonate 1,000 1 tab PO BID PRN Stomach Upset 06/28/19 02/21/25 History mg-simethicone 60 mg chewable tablet (Maalox Advanced) docusate sodium 100 mg capsule 100 mg PO HS 06/28/19 02/21/25 History levothyroxine 75 mcg tablet 75 mcg PO DAILYBB 11/23/20 02/21/25 History tamsulosin 0.4 mg capsule 0.4 mg PO QAM 06/25/24 02/21/25 History baclofen 10 mg tablet 10 mg PO BID PRN muscle spasms 01/29/25 02/21/25 History baclofen 10 mg tablet 10 mg PO HS 01/29/25 02/21/25 History buspirone 15 mg tablet 15 mg PO BID 01/29/25 02/21/25 History cetirizine 10 mg tablet (Zyrtec) 10 mg PO HS 01/29/25 02/21/25 History famotidine 20 mg tablet 20 mg PO BID 01/29/25 02/21/25 History gabapentin 100 mg capsule 100 mg PO TID PRN back/nerve pain 01/29/25 02/21/25 History gabapentin 600 mg tablet 1,200 mg PO HS 01/29/25 02/21/25 History gabapentin 600 mg tablet 600 mg PO QAM 01/29/25 02/21/25 History hyoscyamine sulfate 0.125 mg tablet 0.125 mg PO TID PRN Spasms 01/29/25 02/21/25 History lubiprostone 24 mcg capsule 24 mcg PO BID 01/29/25 02/21/25 History pantoprazole 40 mg tablet,delayed 40 mg PO BID 01/29/25 02/21/25 History release rosuvastatin 10 mg tablet 5 mg PO HS 01/29/25 02/21/25 History tramadol 50 mg tablet 50 - 100 mg PO Q6 PRN Pain 01/29/25 02/21/25 History trazodone 100 mg tablet 200 mg PO HS 01/29/25 02/21/25 History ondansetron 4 mg disintegrating 4 mg PO Q6H PRN nausea and 02/03/25 02/21/25 Rx tablet vomiting #14 tabs nitrofurantoin 100 mg PO BID 7 days #14 caps 02/19/25 02/21/25 Rx monohydrate/macrocrystals 100 mg capsule (Macrobid) oxycodone 5 mg tablet 5 mg PO Q6H PRN pain #12 tabs 02/19/25 02/21/25 Rx Patient History Medical History CAD (coronary artery disease) 2019 cath: Mild to moderate nonobstructive CAD- 40-50% proximal ramus, 20-30% proximal first diagonal Medical management recommended Atypical chest pain Chronic constipation Sigmoid volvulus Carpal tunnel syndrome on both sides Deviated nasal septum "Slight" Incomplete bladder emptying Follows with [facility] urology Aortic regurgitation Follows with Dr. Mcguire History of asthma No longer uses inhaler, "resolved" Hx of migraines Gets botox, last injection 01/2025, no longer gets headaches Medical marijuana use THC cream on painful hands Anxiety and depression Spinal stenosis Peripheral neuropathy Chronic back pain Barretts esophagus Fibromyalgia History of stomach ulcers GERD (gastroesophageal reflux disease) IBS (irritable bowel syndrome) Hypothyroidism Hyperlipidemia Hypertension Surgical History H/O colectomy (02/13/25) Laparoscopic Sigmoid Colectomy, enterolysis- Emanuel Vicente DO History of carpal tunnel surgery of left wrist Hx of bilateral oophorectomy Hx of cystoscopy Hx of arthroscopy of right knee Hx of lumbar discectomy (1996) History of tonsillectomy and adenoidectomy Status post epidural steroid injection multiple Family history of reaction to anesthesia Brother- nausea History of dilatation and curettage History of bilateral tubal ligation History of esophagogastroduodenoscopy (EGD) History of laparoscopy History of colonoscopy (01/31/25) History of hysterectomy RYLAN History of tooth extraction History of cholecystectomy (1984) History of appendectomy History of section (1982) Fusion of spine (2002) L4, L5 ("Failed" per patient) History of cardiac cath 06/2019- no stents 10+ years ago- no stents Family History Uncle Colon cancer Sister Breast cancer Aunt Breast cancer Stomach cancer Family/Other Prostate cancer maternal cousin Family/Other Breast cancer Father Heart disease Denies family history of Ovarian cancer Social History Smoking Status: Former smoker Tobacco Type: Cigarettes packs per day: 1; Second Hand Exposure: No; Do You Dip or Chew Tobacco: No; Hx Alcohol Use: Yes Alcohol type: beer and wine Alcohol Intake Frequency: 2-3 x/Week Hx Substance Use: No Preferred Language: Greenlandic Communication Ability: Effective 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 Required: No Beliefs That Will Affect Care: None marital status: Current Living Situation: Spouse Current Living Situation Comment: home with current occupational status: retired How many Children do You have: 1 Other Information That Helps Us Care for You: No Feels Safe at Home: Yes Safety Concerns: Feels Safe At This Time Diet: regular during the past year weight has: decreased > 10 lbs Assistive Devices: None Physical Exam Constitutional: well developed and well nourished Respiratory: no respiratory distress Cardiovascular: Extremities: no pedal edema Gastrointestinal (Abdomen): Inspection/Auscultation: abdomen normal to inspection Results & Data Vital Signs (Past 12 Hours) Vital Signs Temp Pulse Pulse Resp BP BP Pulse Ox 02/23/25 08:11 36.8 C 76 20 107/63 98 02/23/25 07:50 61 02/23/25 03:19 36.5 C 55 L 16 110/70 94 02/22/25 23:46 79 02/22/25 23:22 36.8 C 63 16 116/68 96 O2 Del Method 02/23/25 08:11 Room Air 02/23/25 07:50 02/23/25 03:19 Room Air 02/22/25 23:46 02/22/25 23:22 Room Air PG Care Time/CCT Total # of Minutes Spent Total Time Spent with Patient: Total time spent is greater than 50% in coordination of care (as documented) at patient's floor/unit and/or counseling patient: Coding Level of Care Code 10947 INT INP/OBS CARE 1/40MIN Diagnoses Urinary retention R33.9
[2025-02-23 11:33] VITALS: RESP 18; TEMP 97.9; O2SAT 97
[2025-02-23] MEDS: APIXABAN 5 MG TABLET PO ONE (11:53)
[2025-02-23 12:30] VITALS: BP 110/70; PULSE 81
--- NOTE | 2025-02-23 13:03 | Discharge Summary ---
Discharge Summary Date of Service February 23, 2025 Principal Dx & Hospital Course #1 = Principal Diagnosis (1) Infarct of liver: (2) Fever postop: (3) S/P laparoscopic colectomy: (4) Abdominal pain: (5) Pain of left calf: Plan 69-year-old PMHx HTN, GERD, FM, and recent history of sigmoid volvulus s/p laparoscopic colectomy (elective sigmoid colon resection, 02/13) presenting for onset of low-grade fevers starting day [employer]. She developed low-grade fevers at home, Tmax 103 F. Associated LLQ abdominal pain with radiation to her lower back. Also with left calf tenderness that started day of arrival; venous Doppler negative for DVT. CT A/P on admission with new wedge-shaped low- attenuation areas within the liver that could be due to infarcts. Patient had been assessed by general surgery in the emergency department, and was referred for further evaluation and treatment to the [facility], with consult to general surgery. #Fever | Abdominal pain | Liver infarcts | Recent laparoscopic colectomy - S/p laparoscopic colectomy (02/13/2025) performed for history of recent sigmoid volvulus in the setting of chronic constipation. No alternative source of infection suggested at this time; no leukocytosis, lactate normal, CT A/P not suggestive of infectious source, UA negative, COVID negative. Anticoagulation for suggested infarct and abx for fever given recent surgical intervention, no confirmed source at present. Remained afebrile throughout hospitalization. - Treated with heparin drip then transitioned to Eliquis. Recommend Eliquis 10 mg BID x 7 days, then 5 mg BID - Covered with empiric antibiotic of Zosyn 4.5 mg IV every 8 hours while admitted. No antibiotics continued on discharge - Portal vein ultrasound with normal flow but notes a dilated common bile duct at 1.3 cm - this is likely due to postcholecystectomy state - Liver enzymes elevated - likely due to hepatic infarcts - Echocardiogram with no cardiac source of emboli noted. LV systolic function normal, EF 60-65%, grade 1 diastolic dysfunction, RVSP normal - Monitored on telemetry throughout hospitalization, remained in NSR the whole time - Gen surg consulted and followed - follow-up with Dr. Vicente outpatient #Urinary retention - h/o incomplete bladder emptying, initially refused straight or Fernandez cath, but after bladder scan showed 1200 mL of retention, agreed to straight cath. Follows with Urogyn at [facility] - has follow-up appointment in upcoming weeks for procedure. - History of 400+ ml PVR on [facility] urogyn note - Increased tamsulosin to 0.8 mg daily (previously on 0.4 mg daily) - Continue hyoscyamine prn for bladder spasms - Urology consulted - no acute intervention. Follow-up with urogynecologist at [facility] as scheduled #Diarrhea - reports history of IBS and is on Amitiza - C. diff negative. Checked prior to giving Imodium given recent hospitalization/antibiotics/fevers - Can use Imodium PRN - Stopped Amitiza and held docusate - discussed resuming these when diarrhea resolves #Hypokalemia - mild, K 3.3, repleted with KCl 40 mEq PO and K improved to 4.3 #L calf pain - Venous Doppler negative for DVT #Chronic constipation-having diarrhea held home constipation meds #Chronic back pain- Baclofen, gabapentin - continue #Psych/Sleep- Buspirone, trazodone - continue #GERD- Famotidine, Pantoprazole #Hypothyroidism- TSH WNL this admission. Levothyroxine - continue #HLD- Rosuvastatin - continue Dispo: Discharged home 02/23 VTE Prophylaxis: Heparin - tx dose Notes For Next Care Provider No clear cause for fevers at home was identified. Infectious workup was negative. Empirically treated with IV Zosyn while hospitalized, but no further antibiotics prescribed on discharge. Treated with heparin drip for hepatic infarcts while admitted and ultimately transitioned to Eliquis. Recommend follow-up with your cord cutter as scheduled given significant urinary retention. Follow-up with general surgery as scheduled. Recommend follow-up with PCP in 1-2 weeks. Medication Changes From Visit Eliquis 10 mg twice daily x 7 days, then 5 mg twice daily Increased Flomax to 0.8 mg daily Can continue bowel regimen when diarrhea resolves Admission HPI Per Admitting Provider 69-year-old PMHx HTN, GERD, FM, and recent history of sigmoid volvulus s/p laparoscopic colectomy (elective sigmoid colon resection, 02/13) presenting for onset of low-grade fevers starting day [employer]. Had developed low-grade fever 100 F with intermittent LLQ abdominal pain radiating into her back. Pt states that she has been healing well since her surgery. The day [employer] however, she noticed that she was sweating throughout the night and had a low-grade fever of 100F. Reports that her normal body temp runs lower than this at her baseline, around 96-97 F. She also developed LLQ abdominal pain that started to radiate to her lower back, describing it as a throbbing pain that was a 4-5/10 on the pain scale with an occasional pinching pain that would be a 7/10 on the pain scale. Her present pain is in these same areas, rated a 2-3/10. Admits to history of "back problems" at baseline but this was different. The morning of arrival she took her temp at 0700 and reports that it was 98F. She continued to have the abdominal pain however. Around 1100 she took her temperature again and it was 100F. Again, at 1200, her temp jumped to 103F. She also admits to L calf tenderness that started the day of arrival. She denies prior clots. She does sometimes have difficulty with swallowing, admitting to history of GERD and Pugh's esophagus. Denies chest pain, SOB, palpitations, N/V/D/C, chills, numbness/tingling, weakness, or syncope. ED evaluation reveals CBC without leukocytosis, H&H 12.2/34.5; CMP BUN 5, ratio 6.8, glucose 118, AST 63, alkaline phosphatase 131; lactate 0.8; lipase 11; UA without infection; CTAP new wedge- shaped low-attenuation areas within the liver could be due to infarct, small hepatic cyst, small hiatal hernia; venous Dopplers pending.; Provided with 1L NSS, Zofran 4 mg IV, morphine 4 mg IV, hydromorphone 0.5 mg IV, and acetaminophen 1 g IV in ED. Please see Dr. Valera's attestation for adjustments/additions to treatment plan. Discharge Exam General: No acute distress, nondiaphoretic, well-developed, well-nourished. Skin: Warm, dry. No rashes or peripheral edema noted. Cardiac: Regular rate and rhythm without murmurs gallops or rubs. Pulm: Clear to auscultation bilaterally without wheezes, rales or rhonchi. Normal respiratory effort. 97% on room air. Abdominal: Soft, nondistended. Mild tenderness to palpation of LLQ. Healing abdominal incision in LLQ, no sign of infection. Mild ecchymosis in LLQ. Bowel sounds present. Neuro: A&O x3. No focal neurological deficits. Discharge Plan Discharge Items Patient Disposition: Home - Self-Care Reason For Visit: FEVER, ABD PAIN, HEPATIC INFARCT Discharge Diagnosis: Hepatic infarcts, urinary retention Condition on Discharge: Fair Activity: Per Instructions section Lifting: No more than 10 pounds Bathing Comment: may shower; no soaking in tubs/pools x 2 weeks from surgical date Exercise/Sports: Wait until after follow-up appointment Driving/Machine Use: no driving if taking narcotics for pain Non-emergency contact: Primary Care Provider and Surgeon Call non-emergency contact if: you have any medication questions, your pain is not controlled, you have a fever, your temperature is above 101.5, your wound has increased redness, your wound has increased drainage and your wound pain has increased Follow-up/Referrals: Emanuel Vicente DO [Surgeon] - (follow up with dr. vicente as previously planned) Na Faria MD [Primary Care Provider] - (Follow-up in 1-2 weeks) Diet: Low Fiber Addtl Attending Provider Instructions: Jojo, You were admitted to the hospital due to a fever in the setting of recent surgical intervention. Your infectious workup was negative. You were empirically treated with antibiotics while in the hospital, but it is not felt that you need any further antibiotics on discharge. Your workup in the emergency department revealed hepatic infarcts. You had an ultrasound of your portal vein that showed normal flow. You had an echocardiogram that did not find a cardiac source of emboli (blood clot). You were monitored on telemetry (heart monitor) and remained in a normal sinus rhythm with no evidence of atrial fibrillation. You were treated with a heparin drip and are being transitioned to Eliquis to continue taking at home for treatment of your hepatic infarcts. You were also evaluated by the urologist for your urinary retention, who recommends you follow-up as scheduled with your urogynecologist at [facility]. Upon discharge from the hospital: * Take Eliquis (blood thinner) 10 mg (2 tabs) twice daily x 7 days. After 7 days (starting on 03/02) take Eliquis 5 mg (1 tab) twice daily. Common side effects include minor bleeding (bruising, nosebleeds, gum bleeding when brushing teeth) and nausea. * Continue on the double dose of Flomax (0.8 mg daily) until you follow-up with your urogynecologist to help with your urinary retention. * Follow the additional instructions from your surgical team listed below. * Follow-up with your PCP in 1-2 weeks. * Follow-up with your urogynecologist as scheduled. Please return to the hospital if you experience any of the following: Signs of major bleeding (heavy/uncontrollable bleeding, vomiting blood or material that looks like coffee grounds, coughing up blood, blood in your urine, red or black/tarry stool, severe headache), dizziness, changes in vision, confusion, chest pain, difficulty breathing, passing out, or if fever of 101 F or higher. It was a pleasure taking care of you while you were in the hospital, Geena Benjamin PA-C Addtl [employer] Provider Instructions: SPECIAL CARE INSTRUCTIONS: * You have skin glue over your incisions called dermabond. you may shower with this on. It will tend to dissolve and fall off within a couple weeks. Do not pick at the skin glue * Diet- low fiber diet until seen by dr. vicente Call your doctor if: * Temperature above 101 degrees, nausea/vomiting, fever/chills * Pain not relieved by pain medicine ordered * There is increased drainage or redness from any incision * You have any unanswered questions or concerns [phone]. FOLLOW UP VISIT: If not already scheduled, please call the office for a follow-up visit. Office Pending Studies at Discharge: No Stand-Alone Forms: My [facility] Provenance, Smoking Cessation Medications and DC Order Prescriptions: New Eliquis 5 mg tablet 5 mg PO BID Qty: 72 0RF Continued docusate sodium 100 mg Capsule 100 mg PO HS Maalox Advanced 1,000-60 mg Tablet,Chewable 1 tab PO BID PRN (Reason: Stomach Upset) levothyroxine 75 mcg tablet 75 mcg PO DAILYBB ondansetron 4 mg tablet,disintegrating 4 mg PO Q6H PRN (Reason: nausea and vomiting) Qty: 14 0RF buspirone 15 mg tablet 15 mg PO BID trazodone 100 mg tablet 200 mg PO HS lubiprostone 24 mcg capsule 24 mcg PO BID baclofen 10 mg tablet 10 mg PO HS pantoprazole 40 mg tablet,delayed release (DR/EC) 40 mg PO BID hyoscyamine sulfate 0.125 mg tablet 0.125 mg PO TID PRN (Reason: Spasms) Rx Instructions: definately uses 1 every bedtime tramadol 50 mg tablet 50 - 100 mg PO Q6 PRN (Reason: Pain) Hold Instructions: Resume on 02/28/25. Hold until you are done with your Oxycodone rosuvastatin 10 mg tablet 5 mg PO HS gabapentin 600 mg tablet 1,200 mg PO HS gabapentin 100 mg capsule 100 mg PO TID PRN (Reason: back/nerve pain) gabapentin 600 mg tablet 600 mg PO QAM famotidine 20 mg Tablet 20 mg PO BID baclofen 10 mg tablet 10 mg PO BID PRN (Reason: muscle spasms) cetirizine [Zyrtec] 10 mg Tablet 10 mg PO HS oxycodone 5 mg tablet 5 mg PO Q6H PRN (Reason: pain) Qty: 12 0RF Rx Instructions: Initial therapy post surgery Changed tamsulosin 0.4 mg capsule 0.8 mg PO QAM Qty: 0 0RF Discontinued nitrofurantoin monohyd/m-cryst [Macrobid] 100 mg capsule 100 mg PO BID 7 Days Qty: 14 0RF Rx Instructions: must administer with a meal/food Discharge Orders: Discharge Order (Routine); Ordered 02/23/25 Ordered By: Geena Moreland/Other Patient Handouts: Apixaban Oral Tablet Admission Data Admit Date/Time: 02/21/25 21:34 Attending Provider: Ginger Jefferson Admit Provider: Ze Valera Primary Care Provider: Na Faria Other Providers: Ze Valera; Bethany Carrillo; Jese Wells Other Interventions: Discharge Summary Assessment (RN) Last Done: 02/23/25 12:29 Hospital Stay Data Consultations 02/21/25 22:36 ED Decision to Admit Stat 02/21/25 23:30 Consult General Surgery Routine 02/22/25 15:34 Consult Urology Routine Diagnostic Imagining Performed Abdomen/Pelvis CT 02/21/25 15:07 Clinical History: Pain and fever Technique: Axial computed tomography images were obtained of the abdomen and pelvis after the administration of intravenous contrast. Comparison is made to the prior CT dated 02/03/2025 Findings: The liver is overall of normal size, attenuation, and contour with no sign of cirrhosis or significant fatty infiltration. There are 3 new wedge-shaped low attenuation areas within the liver. There are several small 2-3 mm cysts in the right hepatic lobe. No definite liver mass lesion is seen. The portal vein is patent. The gallbladder has been removed. There is mild bile duct dilatation that may be due to the post cholecystectomy state. The spleen is of normal size. No focal splenic lesion is evident. The pancreas appears normal with no sign of acute or chronic pancreatitis and no mass lesion noted. The pancreatic duct is of normal caliber. The adrenal glands appear unremarkable. No definite renal or proximal ureteral calculi are seen on this contrast-enhanced study. There is no hydronephrosis or perinephric stranding. No renal mass lesion is identified. The aorta is of normal caliber. No abdominal adenopathy is seen. There is a small hiatal hernia. There is no sign of small bowel obstruction. There are anastomotic sutures of the sigmoid colon. No free intraperitoneal fluid or air is identified. The appendix has been removed No distal ureteral or bladder calculi are seen. No bladder mass lesion is evident. There is a small pocket of air within the urinary bladder that may be due to recent catheterization. The iliac arteries are of normal caliber. No pelvic adenopathy is noted. The uterus has been removed The lungs bases appear clear. Lumbar scoliosis and degenerative disc disease is seen. No fracture is identified. No focal osseous lesion is seen Impression: 1. New wedge-shaped low attenuation areas within the liver that could be due to infarcts 2. Small hepatic cysts 3. Small hiatal hernia ACT 112: Positive. There are findings on this exam that require communication between the performing entity and the patient following Patient Test Result Information Act ([place] ACT 112) guidelines. Electronically signed by Panda Aggarwal 02-21-2025 6:56 PM Venous Doppler Study 02/21/25 15:11 Exam(s): US VENOUS LEFT LOWER EXTREMITY EXAM: US Duplex Left Lower Extremity Veins CLINICAL HISTORY: Reason for exam: pain. TECHNIQUE: Real-time duplex ultrasound scan of the left lower extremity veins integrating B-mode two-dimensional vascular structure, Doppler spectral analysis, color flow Doppler imaging and compression. COMPARISON: No relevant prior studies available. FINDINGS: Deep veins: Unremarkable. No DVT in the visualized common femoral, femoral, proximal deep femoral or popliteal veins. The veins demonstrate normal color flow, are normally compressible, with normal phasic flow and/or augmentation response. Superficial veins: No thrombus. Soft tissues: No acute findings. No popliteal cyst. IMPRESSION: No evidence of DVT in the left lower extremity. Electronically signed by: Hong Adams MD 02/21/25 22:42 PM Portal Vein US 02/21/25 21:03 Exam(s): US VASCULAR EXAM: US Duplex Arterial/Venous of the Abdomen, Complete CLINICAL HISTORY: Reason for exam: Hepatic infarct, check hepatic artery. TECHNIQUE: Real-time duplex ultrasound scan of the abdomen integrating B-mode two- dimensional vascular structure, Doppler spectral analysis and color flow Doppler imaging. COMPARISON: No relevant prior studies available. FINDINGS: Portal veins: Unremarkable. Normal hepatopetal flow on color and spectral Doppler imaging. Hepatic arteries: Unremarkable. Normal flow on color and spectral Doppler imaging. Normal resistive indices. Hepatic veins: Unremarkable. Normal flow on color and spectral Doppler imaging. Splenic vein: Unremarkable. Normal flow on color and spectral Doppler imaging. Common bile duct: Abnormally dilated at 1.3 cm. IMPRESSION: Normal abdominal/liver duplex ultrasound. Dilated common bile duct at 1.3 cm. Electronically signed by: Hong Adams MD 02/22/25 00:25 AM Pending Results Patient Have Any Pending Studies at Discharge: No Discharge Instructions Given to Patient (Per Discharging Provider) Jojo, You were admitted to the hospital due to a fever in the setting of recent surgical intervention. Your infectious workup was negative. You were empirically treated with antibiotics while in the hospital, but it is not felt that you need any further antibiotics on discharge. Your workup in the emergency department revealed hepatic infarcts. You had an ultrasound of your portal vein that showed normal flow. You had an echocardiogram that did not find a cardiac source of emboli (blood clot). You were monitored on telemetry (heart monitor) and remained in a normal sinus rhythm with no evidence of atrial fibrillation. You were treated with a heparin drip and are being transitioned to Eliquis to continue taking at home for treatment of your hepatic infarcts. You were also evaluated by the urologist for your urinary retention, who recommends you follow-up as scheduled with your urogynecologist at [facility]. Upon discharge from the hospital: * Take Eliquis (blood thinner) 10 mg (2 tabs) twice daily x 7 days. After 7 days (starting on 03/02) take Eliquis 5 mg (1 tab) twice daily. Common side effects include minor bleeding (bruising, nosebleeds, gum bleeding when brushing teeth) and nausea. * Continue on the double dose of Flomax (0.8 mg daily) until you follow-up with your urogynecologist to help with your urinary retention. * Follow the additional instructions from your surgical team listed below. * Follow-up with your PCP in 1-2 weeks. * Follow-up with your urogynecologist as scheduled. Please return to the hospital if you experience any of the following: Signs of major bleeding (heavy/uncontrollable bleeding, vomiting blood or material that looks like coffee grounds, coughing up blood, blood in your urine, red or black/tarry stool, severe headache), dizziness, changes in vision, confusion, chest pain, difficulty breathing, passing out, or if fever of 101 F or higher. It was a pleasure taking care of you while you were in the hospital, Geena Benjamin PA-C Supervising Physician Co-Signing Physician Notes PA Supervision Note: I did not personally see or examine the patient today, but I verified all mayo points of FUNMI Benjamin's assessment and plan with the following exceptions/additions: None Total Time Total Time Spent Total Time Spent (In Minutes): Greater than 30 minutes spent completing this discharge process including direct patient care, medication reconciliation, documentation, review of labs and images, and coordination of care. Coding Level of Care Code 04177 INP/OBS DISCH >30 MIN Diagnoses Infarct of liver K76.3 Fever postop R50.82 S/P laparoscopic colectomy Z90.49 Abdominal pain R10.9 Pain of left calf M79.662
== END 2025-02-23 14:00 | disposition home or self-care (01) | DRG 443 ==
LOC: ED 14:51 → SUATTDRO 21:34 → 2N 21:34